=== PATIENT | female | born 1975 | race Caucasian/White ===

== ENCOUNTER 2016-09-15 23:19 | Inpatient (IN) | payer OTHER ==
[~2016-09-15] VITALS: Ht 172.7 cm; Wt 107.2 kg
[~2016-09-15 23:19] MED LIST: AMOX500C PO; ARIP15TA2 PO; ARIP20TA8 PO; CIPR500T94 PO; CLIN-44 PO; ERYT250T14 PO; FLUO20CA16 PO; GABA600T2 PO; HYDR-971 PO; HYDR15SO4 PO; IBUP-1007 PO; INSU100C SQ; INSU100V13 SQ; LUBI8CAP3 PO; METF-551 PO; ONDA4TAB7 PO; OXYC1TAB7 PO; TRAZ50TA15 PO
[2016-09-15] MEDS ORDERED: IV NORMAL SALINE 1000ML BAG 1,000 ML IV SCH (23:45)
[2016-09-15 23:54] LABS: BASO # 0.1 x10^3/uL (0.0-0.2); BASO % 1 % (0-3); EOS % 2 % (0-3); HEMATOCRIT 42.8 % (36.0-47.0); HEMOGLOBIN 14.1 g/dL (12.0-15.5); LYMPH # 2.5 x10^3/uL (1.0-4.8); LYMPH % 36 % (24-48); MEAN CORPUSCULAR HEMOGLOBIN 27 pg (25-35); MEAN CORPUSCULAR HGB CONC 33 g/dL (31-37); MEAN CORPUSCULAR VOLUME 83 fL (79-100); MONO % 7 % (0-9); NEUT % 54 % (31-73); PLATELET COUNT 164 x10^3/uL (140-400); RED BLOOD COUNT 5.19 x10^6/uL (3.50-5.40); RED CELL DISTRIBUTION WIDTH 14.8 % (11.5-14.5)
[2016-09-16] VITALS (7 sets, daily range): BP systolic 106–126; BP diastolic 61–76
[2016-09-16 00:12] LABS: CALCIUM 9.7 mg/dL (8.5-10.1); CREATININE 0.9 mg/dL (0.6-1.0); GFR 69.3; POTASSIUM 3.9 mmol/L (3.5-5.1)
--- NOTE | 2016-09-16 00:12 | PHYS DOC ---
Past Medical History Past Medical History: Anxiety, Asthma, Diabetes-Type II, Hypertension, [place], Other Additional Past Medical Histor: fibroid tumors, Past Surgical History: Cholecystectomy, Tubal ligation, Other Additional Past Surgical Histo: fibroid tumor removal, R CARPAL TUNNEL Alcohol Use: None Drug Use: None Adult General Chief Complaint Chief Complaint: HYPERGLYCEMIA HPI HPI 40-year-old female with known history of insulin-dependent diabetes presenting with ongoing nausea and vomiting for the last day and feeling ill and dehydrated. She states she vomited twice today and she states she's having polyuria and polydipsia. She denies any significant fever or chills. She denies any recent illnesses. She states she has had to be admitted multiple times in the past for uncontrolled blood sugar. She denies any abdominal pain. Patient is fully alert and oriented and able answer all my questions at this time and does not appear to be any severe distress. Review of Systems Review of Systems Constitutional: Denies fever or chills [] Eyes: Denies change in visual acuity, redness, or eye pain [] HENT: Denies nasal congestion or sore throat [] Respiratory: Denies cough or shortness of breath [] Cardiovascular: No additional information not addressed in HPI [] GI: Denies abdominal pain, nausea, vomiting, bloody stools or diarrhea [] : Denies dysuria or hematuria [] Musculoskeletal: Denies back pain or joint pain [] Integument: Denies rash or skin lesions [] Neurologic: Denies headache, focal weakness or sensory changes [] Endocrine: Denies polyuria or polydipsia [] Current Medications Current Medications Current Medications Medications (Trade) Dose Ordered Sig/Dominique Start Time Stop Time Status Last Admin Dose Admin Insulin Human Regular/Sodium Chloride (Novolin R Vial/ Iv Normal Saline 150ml) 151.5 ml @ 0 mls/hr CONT PRN 09/16/16 00:15 09/16/16 00:27 7.9 MLS/HR Sodium Chloride 1,000 ml @ 1,000 mls/hr Q1H 09/15/16 23:45 09/16/16 00:44 DC 09/15/16 23:45 1,000 MLS/HR Allergies Allergies Allergies Coded Allergies Type Severity Reaction Last Updated Verified shrimp Allergy Intermediate 06/14/16 Yes Physical Exam Physical Exam Constitutional: Well developed, well nourished, no acute distress, non-toxic appearance. [] HENT: Normocephalic, atraumatic, bilateral external ears normal, oropharynx moist, no oral exudates, nose normal. [] Eyes: PERRLA, EOMI, conjunctiva normal, no discharge. [] Neck: Normal range of motion, no tenderness, supple, no stridor. [] Cardiovascular:Heart rate regular rhythm, no murmur [] Lungs & Thorax: Bilateral breath sounds clear to auscultation [] Abdomen: Bowel sounds normal, soft, no tenderness, no masses, no pulsatile masses. [] Skin: Warm, dry, no erythema, no rash. [] Back: No tenderness, no CVA tenderness. [] Extremities: No tenderness, no cyanosis, no clubbing, ROM intact, no edema. [] Neurologic: Alert and oriented X 3, normal motor function, normal sensory function, no focal deficits noted. [] Psychologic: Affect normal, judgement normal, mood normal. [] Current Patient Data Vital Signs Vital Signs Date Time Temp Pulse Resp B/P Pulse Ox O2 Delivery O2 Flow Rate FiO2 09/16/16 00:10 86 20 129/77 96 Room Air 09/15/16 23:22 98.1 98.1 Lab Values Laboratory Tests Test 09/15/16 23:39 09/15/16 23:45 09/16/16 00:13 09/16/16 00:19 Glucose (Fingerstick) 526mg/dL (70-99) *H 454mg/dL (70-99) H White Blood Count 7.0x10^3/uL (4.0-11.0) Red Blood Count 5.19x10^6/uL (3.50-5.40) Hemoglobin 14.1g/dL (12.0-15.5) Hematocrit 42.8% (36.0-47.0) Mean Corpuscular Volume 83fL (79-100) Mean Corpuscular Hemoglobin 27pg (25-35) Mean Corpuscular Hemoglobin Concent 33g/dL (31-37) Red Cell Distribution Width 14.8% (11.5-14.5) H Platelet Count 164x10^3/uL (140-400) Neutrophils (%) (Auto) 54% (31-73) Lymphocytes (%) (Auto) 36% (24-48) Monocytes (%) (Auto) 7% (0-9) Eosinophils (%) (Auto) 2% (0-3) Basophils (%) (Auto) 1% (0-3) Neutrophils # (Auto) 3.8x10^3uL (1.8-7.7) Lymphocytes # (Auto) 2.5x10^3/uL (1.0-4.8) Monocytes # (Auto) 0.5x10^3/uL (0.0-1.1) Eosinophils # (Auto) 0.1x10^3/uL (0.0-0.7) Basophils # (Auto) 0.1x10^3/uL (0.0-0.2) Sodium Level 136mmol/L (136-145) Potassium Level 3.9mmol/L (3.5-5.1) Chloride Level 98mmol/L (98-107) Carbon Dioxide Level 25mmol/L (21-32) Anion Gap 13 (6-14) Blood Urea Nitrogen 8mg/dL (7-20) Creatinine 0.9mg/dL (0.6-1.0) Estimated GFR (Cockcroft-Gault) 69.3 Glucose Level 563mg/dL (70-99) *H Calcium Level 9.7mg/dL (8.5-10.1) Urine Collection Type Unknown Urine Color Red Urine Clarity Cloudy Urine pH 5.0 Urine Specific [place] >=1.030 Urine Protein Negativemg/dL (NEG-TRACE) Urine Glucose (UA) >=1000mg/dL (NEG) Urine Ketones (Stick) Negativemg/dL (NEG) Urine Blood Large (NEG) Urine Nitrite Negative (NEG) Urine Bilirubin Negative (NEG) Urine Urobilinogen Dipstick 0.2mg/dL (0.2 mg/dL) Urine Leukocyte Esterase Negative (NEG) Urine RBC Tntc/HPF (0-2) Urine WBC Occ/HPF (0-4) Urine Squamous Epithelial Cells Few/LPF Urine Bacteria 0/HPF (0-FEW) Urine Mucus Slight/LPF Laboratory Tests 09/15/16 23:45 Laboratory Tests 09/15/16 23:45 EKG EKG EKG as interpreted by dc shows a sinus rhythm with rate of 89 bpm. There are no acute ST findings. There are no obvious ischemic findings. Intervals are normal. EKG does not meet any STEMI criteria. Radiology/Procedures Radiology/Procedures [] Course & Med Decision Making Course & Med Decision Making Pertinent Labs and Imaging studies reviewed. (See chart for details) This 40-year-old female is likely having, occasions of uncontrolled diabetes. Fluids and insulin drip will be started. I will wait full laboratory workup including CBC, BMP, and a venous blood gas before admission and placement. Her blood work is unremarkable besides an elevated blood glucose in the 500s. Patient had several liters of IV fluid ordered as well as insulin drip for her uncontrolled blood glucose. It does not appear that she is in DKA at this time and will be suitable for a medical telemetry floor. Her need for admission was discussed with the hospitalist, Dr. Coto, who agreed to admit the patient for further evaluation and treatment. Dragon Disclaimer Dragon Disclaimer This electronic medical record was generated, in whole or in part, using a voice recognition dictation system. Departure Departure Impression: Primary Impression: Hyperglycemia Additional Impressions: Nausea & vomiting Dehydration Disposition: ADMITTED INPATIENT Admitting Physician: Leticia Coto Condition: STABLE Referrals: UNKNOWN PCP NAME (PCP) Problem Qualifiers SEBASTIÁN HENRY DO Sep 16, 2016 00:12
[2016-09-16] MEDS ORDERED: INSULIN REGULAR VIAL 150 UNIT in 0.9 % SODIUM CHLORIDE 150ML 150 ML IV PRN (00:15)
[2016-09-16] MEDS ORDERED: IV NORMAL SALINE 1000ML BAG 1,000 ML IV SCH (00:27)
[2016-09-16] MEDS ORDERED: ONDANSETRON PF 4 MG/2 ML VIAL. IV PRN (00:30)
[2016-09-16] MEDS ORDERED: ONDANSETRON PF 4 MG/2 ML VIAL. IV ONE (00:30)
[2016-09-16] MEDS ORDERED: KETOROLAC TROMETHAMINE 30 MG/ML SYRINGE. IV ONE (00:30)
[2016-09-16] MEDS ORDERED: IV NORMAL SALINE 1000ML BAG 1,000 ML IV ONE (00:30)
[2016-09-16 00:47] LABS: BILIRUBIN,URINE NEGATIVE (NEG); GLUCOSE,URINE >=1000 mg/dL (NEG); NITRITE,URINE NEGATIVE (NEG); PROTEIN,URINE NEGATIVE (NEG-TRACE); RBC,URINE TNTC /HPF (0-2); UROBILINOGEN,URINE 0.2 mg/dL (0.2 mg/dL)
[2016-09-16 00:48] LABS: BACTERIA,URINE 0 /HPF (0-FEW); SQUAMOUS EPITHELIAL CELL,UR FEW /LPF; WBC,URINE OCC /HPF (0-4)
[2016-09-16] MEDS ORDERED: MORPHINE SULFATE 2 MG/ML DISP.SYRIN. IV PRN (02:45)
[2016-09-16] MEDS ORDERED: MORPHINE SULFATE 4 MG/ML DISP.SYRIN. IV PRN ×2 (03:00)
[2016-09-16] MEDS: MORPHINE SULFATE 2 MG/ML DISP.SYRIN. IV PRN ×2 (03:31→06:31)
--- NOTE | 2016-09-16 04:57 | ACF ---
Admission Forms Criteria GENERAL ADMISSION CRITERIA (Place 'X' for any and all applicable criteria): Admission is indicated for ANY ONE of the following: [ ]I. Hemodynamic instability as indicated by ANY ONE of the following(1)(2) (3)(4)(5): [ ]a) Vital sign abnormality not readily corrected by appropriate treatment within 12 to 24 hours indicated by ANY ONE of the following: [ ]i) Hypotension [ ]ii) Symptomatic Tachycardia unresponsive to treatment (eg , analgesia, fluids, sedation as indicated) [ ]iii) Orthostatic vital sign changes unresponsive to treatment (eg, fluids) [ ]b) Vital sign abnormality that is severe indicated by ANY ONE of the following: [ ]i) Inadequate perfusion indicated by ANY ONE of the following: [ ]1) Lactic acidosis (greater than 2 mmol/L) [ ]2) New abnormal capillary refill (greater than 3 seconds) [ ]3) Other metabolic acidosis (arterial pH less than 7.35) not otherwise explained [ ]4) Reduced urine output [ ]5) Altered mental status [ ]6) Myocardial Ischemia [ ]v) Mean arterial pressure[A] less than 60 mm Hg [ ]vi) Mean arterial pressure[A] less than 70 mm Hg after 30 minutes of appropriate treatment (eg, fluid resuscitation) [ ]vii) IV inotropic or vasopressor medication required to maintain adequate blood pressure or perfusion [ ]viii) Sustained heart rate greater than 120 beats per minute in adult or child 6 years or older[B]] [ ]II. Hypertension requiring inpatient treatment as indicated by ANY ONE of the following(6)(7)(8): [ ]a) SBP greater than 220 mm Hg or DBP greater than 120 mm Hg despite treatment [ ]b) SBP greater than 140 mm Hg or DBP greater than 100 mm Hg with evidence of acute end organ damage as indicated by ANY ONE of the following: [ ]i) Encephalopathy [ ]ii) Acute renal failure as indicated by new onset of ANY ONE of the following(9)(10)(11)(12)(13): [ ]1) A 3-fold rise in serum creatinine from baseline [ ]2) Serum creatinine greater than 4 mg/dL ( 354 micromoles/L) with acute rise greater than 0.5 mg/dL (44.2 micromoles/L) [ ]3) Reduction of more than 75% in estimated glomerular filtration rate from baseline [ ]4) Estimated glomerular filtration rate less than 35 mL/min/1.73m2 (0.59 mL/sec/1.73m2) in child up to 18 years of age [ ]5) Cessation of urine output indicated by ALL of the following: [ ]A. Adequate volume status [ ]B. Inadequate urine output as indicated by ANY ONE of the following: [ ]a. Urine output less than 0.3 mL/kg/hr for 24 hours [ ]b. Anuria (urine output less than 0.1 mL/kg/hr) for 12 hours [ ]iii) Aortic dissection [ ]iv) Myocardial ischemia [ ]v) Left ventricular heart failure [ ]vi) Retinal hemorrhage [ ]vii) Other significant finding [ ]c) Hypertension in child requiring inpatient treatment as indicated by ALL of the following(14)(15)(16): [ ]i) Outpatient treatment not effective, not available, or not appropriate [ ]ii) SBP or DBP greater than 95th percentile for age [ ]iii) Evidence of acute end organ damage as indicated by ANY ONE of the following: [ ]1) Altered mental status [ ]2) Acute renal failure as indicated by new onset of ANY ONE of the following(9)(10)(11)(12)(13): [ ]A. A 3-fold rise in serum creatinine from baseline [ ]B. Serum creatinine greater than 4 mg/dL (354 micromoles/L) with acute rise greater than 0.5 mg/dL (44.2 micromoles/L) [ ]C. Reduction of more than 75% in estimated glomerular filtration rate from baseline [ ]D. Estimated glomerular filtration rate less than 35 mL/min/1.73m2 (0.59 mL/sec/1.73m2)in child up to 18 years of age [ ]E. Cessation of urine output indicated by ALL of the following: [ ]a. Adequate volume status [ ]b. Inadequate urine output as indicated by ANY ONE of the following: [ ]1) Urine output less than 0.3 mL/kg/hr for 24 hours [ ]2) Anuria (urine output less than 0.1 mL/kg/hr) for 12 hours [ ]3) Severe headache [ ]4) Visual disturbance [ ]5) Retinal hemorrhage [ ]6) Other significant finding [ ]III. Acute cardiac or peripheral ischemia as indicated by ANY ONE of the following: [ ]a) Acute coronary syndrome(17)(18) [ ]b) Acute peripheral ischemia (eg, pulseless, cool, mottled, or cyanotic extremity)(19) [ ]IV. Cardiac arrhythmias or findings of immediate concern indicated by ANY ONE of the following(20)(21): [ ]a) Heart rhythms that are inherently dangerous or unstable indicated by ANY ONE of the following(22)(23)(24): [ ]i) Resuscitated ventricular fibrillation or cardiac arrest [ ]ii) Ventricular escape rhythm [ ]iii) Sustained ventricular tachycardia (30 seconds or more of ventricular rhythm at greater than 100 beats per minute) [ ]iv) Nonsustained ventricular tachycardia and ANY ONE of the following: [ ]1) Suspected cardiac ischemia as cause or consequence of ventricular tachycardia [ ]2) In setting of acute myocarditis [ ]b) Unstable cardiac conduction defects indicated by ANY ONE of the following(24)(25)(26): [ ]i) Type II second-degree atrioventricular block [ ]ii) Third-degree atrioventricular block [ ]iii) New-onset left bundle branch block with suspected myocardial ischemia [ ]c) Any heart rhythm and ANY ONE of the following(22)(23)(27)(28)( 29): [ ] i) Continuous long-term ECG monitoring needed (eg, initiation of drug requiring monitoring for more than 24 hours) [ ] ii) Patient has automatic implanted cardioverter defibrillator that is repeatedly firing, malfunctioning, or in need of immediate adjustment of settings beyond the scope of ambulatory or observation care. [ ]d) Heart rhythms of concern due to ANY ONE of the following: [ ]i) Hypotension [ ]ii) Respiratory distress [ ]iii) Association with other significant symptoms (eg, bradycardia with syncope or ongoing dizziness, supraventricular tachycardia with chest pain) (27)(28) (30) [ ] V. Severe heart failure as indicated by ANY ONE of the following ( 31)(32): [ ]a) Respiratory distress [ ]b) Hypotension [ ]c) Anasarca (refractory to outpatient therapy) [ ]d) Cardiac arrhythmias of immediate concern [ ]e) Myocardial ischemia [ ]. Respiratory abnormalities, including ANY ONE of the following(33)(34) (35)(36): [ ]a) Respiratory rate greater than 30 breaths per minute unresponsive to treatment [A] [ ]b) New saturation of arterial oxygen less than 90% [ ]c) New partial pressure of carbon dioxide greater than 44 mm Hg ( 5.9 kPa) [ ]d) Supplemental oxygen or respiratory treatments needed that are new or not performable at other levels of care [ ]e) New-onset cyanosis [ ]f) Inability to protect airway [ ]g) Chronic lung disease with severe deterioration (not responsive to emergency and observation care treatment as appropriate) as indicated by ANY ONE of the following(34)(36 ): [ ]i) SaO2 5% below baseline in patient with chronic hypoxemia [ ]ii) New requirement for supplemental oxygen to keep SaO2 at baseline or acceptable level [ ]iii) Required supplemental oxygen performable only in acute inpatient setting [ ]iv) Severe airflow or ventilation abnormalities [ ]v) Previously mobile patient unable to walk between rooms [ ]vi Inability to eat or sleep due to dyspnea [ ]vii) Rapid rate of exacerbation onset [ ]viii) Altered mental status ]VII. Severe airflow or ventilation abnormalities (not responsive to emergency and observation care treatment as appropriate) as indicated by ANY ONE of the following(33)(34)(35)(37): [ ]a) PCO2 greater than 42 mm Hg (5.6 kPa) and pH less than 7.35 (new ) [ ]b) Documented PCO2 increased more than 5 mm Hg (0.7 kPa) from disease baseline [ ]c) Airflow measurements [B] less than 60% of previous best or predicted (eg, peak expiratory flow rate less than 300 L/minute) despite intensive emergent treatment [C] [ ]d) Required respiratory treatments that are performable only in acute inpatient setting [ ]VIII. Impending or actual respiratory arrest ( Also use Respiratory Failure GRG for severe respiratory disease and long-term mechanical ventilation patients) [ ]IX. Neurologic abnormalities, including ANY ONE of the following: [ ]a) New findings that suggest ANY ONE of the following: [ ]i) BILLING MACHINE OPERATOR infection(38) [ ]ii) Cerebral bleeding, ischemia, or vasospasm(39)(40) [ ]iii) Increased intracranial pressure, hydrocephalus, or cerebral edema(41)(42)(43) [ ]iv) Spinal cord injury(44) [ ]b) Uncontrolled seizures(45) [ ]c) New-onset coma (eg, Oscar coma scale score less than 9) or unexplained abnormal mental status (eg, Oscar coma scale score less than 14) [D](41)(46)(47) [ ]X. New-onset severe neurologic findings requiring inpatient care; examples include(42)(48)(49): [ ]a) Papilledema [ ]b) Cerebral edema [ ]c) Mass effect on CT scan [ ]XI. Suspected acute intra-abdominal process with peritoneal signs, abdominal mass, or similar findings (50)(51)(52) [X]XII. Severe physiologic disorder remaining after emergency or observation level care (as appropriate) as indicated by ANY ONE of the following (53): [ ]a) Significant dehydration [ ]b) Diabetic ketoacidosis [X]c) Hyperglycemic hyperosmolar state (eg, osmolality greater than 320 mOsm/kg (mmol/kg) [ ]d) Hypoglycemia [ ]e) Other (new) acid-base disorder with pH less than 7.35 or greater than 7.5(54) [ ]f) Thyroid storm (55) [ ]g) Myxedema coma (55) [ ]XIII. Abdominal abnormalities with ANY ONE of the following(56)(57): [ ]a) Absent bowel sounds with complete ileus [ ]b) Signs of intestinal obstruction or peritonitis [E] [ ]c) Nausea and vomiting that cannot be controlled with outpatient or observation care [ ]XIV. Acute renal failure as indicated by new onset of ANY ONE of the following(9)(10)(11)(12)(13): [ ]a) A 3-fold rise in serum creatinine from baseline [ ]b) Serum creatinine greater than 4 mg/dL (354 micromoles/L) with acute rise greater than 0.5 mg/dL (44.2 micromoles/L) [ ]c) Reduction of more than 75% in estimated glomerular filtration rate from baseline [ ]d) Estimated glomerular filtration rate less than 35 mL/min/ 1.73m2 (0.59 mL/sec/1.73m2) in child up to 18 years of age [ ]e) Cessation of urine output indicated by ALL of the following: [ ]i) Adequate volume status [ ]ii) Inadequate urine output as indicated by ANY ONE of the following: [ ]1) Urine output less than 0.3 mL/kg/hr for 24 hours [ ]2) Anuria (urine output less than 0.1 mL/kg/hr) for 12 hours [ ]XV. Significant uremic complications as indicated by ANY ONE of the following(58)(59)(60): [ ]a) Outpatient therapy is ineffective or not feasible for ANY ONE of the following: [ ]i) Severe heart failure [ ]ii) Severehypertension [ ]iii) Pleural effusion [ ]iv) Pericarditis or pericardial effusion [ ]b) Cardiac arrhythmias of immediate concern [ ]c) Intractable nausea or vomiting [ ]d) Recurrent seizures [ ]e) Encephalopathy [ ]f) Bleeding abnormalities (eg, platelet dysfunction) with active (eg, gastrointestinal) bleeding [ ]g) Dialysis indicated before long-term access or ambulatory arrangements can be made [ ]h) Significant metabolic or electrolyte abnormalities (eg, severe acidosis or hyperkalemia) [ ]XVI. High fever or other high-risk infection situation as indicated by ANY ONE of the following(61)(62)(63)(64): [ ]a) Outpatient and observation care antimicrobial treatment unavailable, not effective, or not appropriate [ ]b) Documented bacteremia [ ]c) Temperature greater than 40.5 degrees C (104.9 degrees F) ( oral) [ ]d) Temperature greater than 39.5 degrees C (103.1 degrees F) ( oral) or less than 36 degrees C (96.8 degrees F) (rectal) that does not respond to e treatment and observation care [ ] XVII. Temperature less than 95 degrees F (35 degrees C)(rectal)(65) [ ] XVIII. Severe nutritional abnormalities as indicated by ALL of the following (66)(67): [ ]a) Inability to tolerate or establish sufficient oral or other enteral nutrition in outpatient setting [ ]b) Parenteral nutrition regimen need that must be implemented on inpatient basis [ ] XIX. Severe electrolyte abnormalities indicated by ALL of the following(68) (69)(70): [ ]a) Electrolytes and associated findings are not as expected for patient baseline or acceptable treatment effects. [ ]b) Severe abnormalities indicated by ANY ONE of the following: [ ]i) Sodium less than 130 mEq/L (mmol/L) (new) [ ]ii)Sodium less than 135 mEq/L (mmol/L) with ANY ONE of the following: [ ]1) Uncorrectable (to near normal or chronic baseline) after trial of outpatient and emergency treatment [ ]2) Altered mental status [ ]3) Seizures [ ]4) Severe medical etiology requiring inpatient management (eg, heart failure, hypovolemia) [ ]iii) Sodium greater than 155 mEq/L (mmol/L) [ ]iv) Sodium greater than 150 mEq/L (mmol/L) with ANY ONE of the following: [ ]1) Uncorrectable (to near normal or chronic baseline) with outpatient and emergency treatment [ ]2) Altered mental status [ ]3) Seizures [ ]4) Severe medical etiology (eg, hypovolemia, diabetes insipidus) [ ]v) Potassium less than 2.5 mEq/L (mmol/L) despite outpatient and emergency treatment [ ]vi) Potassium less than 3 mEq/L (mmol/L) with ANY ONE of the following: [ ]1) Weakness [ ]2) Cardiac abnormality (eg, arrhythmia, conduction disturbance) [ ]3) Cardiac ischemia [ ]4) Ileus [ ]5) Ongoing medical cause requiring inpatient management (eg, acute renal wasting or SIADH) [ ]6) Other severe symptoms [ ]vii) Potassium greater than 6.5 mEq/L (mmol/L) [ ]viii) Potassium greater than 5 mEq/L (mmol/L) with ANY ONE of the following: [ ]1) Uncorrectable (to near normal or chronic baseline) with outpatient and emergency treatment [ ]2) Severe ECG findings [F] [ ]3) Acute worsening of renal failure (creatinine greater than 2.5 mg/dL (221 micromoles/L) or significant elevation for age and size) [ ]4) Severe weakness [ ]5) Severe medical etiology (eg, hemolysis, infection, drug overdose) [ ]ix) Calcium less than 7 mg/dL (1.75 mmol/L) despite outpatient and emergency treatment (72) [ ]x) Calcium less than 8 mg/dL (2 mmol/L) with significant symptoms or findings; examples include(72): [ ]1) Altered mental status [ ]2) Muscle spasms [ ]3) Seizures [ ]4) Breathing difficulty [ ]5) Cardiac abnormality (eg, arrhythmia or conduction disturbance) [ ]xi) Calcium greater than 14 mg/dL (3.5 mmol/L)(72) [ ]xii) Calcium greater than 12 mg/dL (3 mmol/L) with ANY ONE of the following(72): [ ]1) Uncorrectable (to near normal or chronic baseline) with outpatient and emergency treatment [ ]2) Significant dehydration or hypovolemia as indicated by ALL of the following(70)(73)(74): [ ]A. Not resolved with initial treatments [ ]B. Clinically significant dehydration as indicated by ANY ONE of the following: [ ]a. Vomiting refractory to outpatient treatment (ie, precluding oral rehydration) [ ]b. Inability to drink [ ]c. Hypernatremia or other electrolyte abnormality unable to be corrected with outpatient and emergency treatment [ ]d. Failure to remain hydrated with outpatient therapy [ ]e. Reduced urine output [ ]f. Hypotension [ ]g. Serious cause for dehydration requiring acute hospitalization (eg, bowel obstruction, increased intracranial pressure, infectious cause) [ ]h. Child with ANY ONE of the following(75): [ ]1) Severe abdominal tenderness [ ]2) Adequate care not available at home [ ]3) Severe dehydration ( greater than 9% loss of body weight) [ ]4) Significant symptoms or findings; examples include: [ ]A. Altered mental status [ ]B. Cardiac abnormality (eg, arrhythmia, conduction disturbance) [ ]C. Malignant etiology requiring inpatient treatment [ ]xiii) Phosphorus less than 1 mg/dL (0.32 mmol/L) [ ]xiv) Phosphorus less than 1.5 mg/dL (0.48 mmol/L) with ANY ONE of the following: [ ]1) Patient unresponsive to outpatient and emergency treatment [ ]2) Significant symptoms or findings; examples include: [ ]A. Weakness [ ]B. Altered mental status [ ]C. Breathing difficulty [ ]D. Seizures [ ]E. Rhabdomyolysis [ ]xv) Phosphorus greater than 10 mg/dL (3.2 mmol/L) [ ]xvi) Phosphorus greater than 4.5 mg/dL (1.45 mmol/L) (new) with ANY ONE of the following: [ ]1) Severe medical etiology (eg, crush injury, acute renal failure) [ ]2) Associated hypocalcemia with significant findings; examples include: [ ]A. Neurologic symptoms [ ]B. Altered mental status [ ]C. Muscle spasms [ ]D. Seizures [ ]E. Breathing difficulty [ ]F. Cardiac abnormality (eg, arrhythmia, conduction disturbance) [ ]xvii) Magnesium less than 1 mg/dL (0.41 mmol/L) [ ]xviii) Magnesium less than 1.5 mg/dL (0.62 mmol/L) with ANY ONE of the following: [ ]1) Patient unresponsive to outpatient and emergency treatment [ ]2) Associated hypocalcemia with significant findings; examples include: [ ]A. Altered mental status [ ]B. Muscle spasms [ ]C. Seizures [ ]D. Breathing difficulty [ ]E. Cardiac abnormality (eg, arrhythmia , conduction disturbance) [ ]3) Associated hypokalemia (potassium less than 3 mEq/L (mmol/L)) with risk of arrhythmia [ ]xix) Magnesium greater than 4 mEq/L (2 mmol/L) [ ]xx) Magnesium greater than 2.5 mEq/L (1.25 mmol/L) with significant symptoms or findings; examples include: [ ]1) Weakness [ ]2) Altered mental status [ ]3) Cardiac abnormality (eg, arrhythmia, conduction disturbance) [ ]4) Breathing difficulty [ ]5) Severe medical etiology (eg, renal failure, hypovolemia) [ ]xxi) Uric acid greater than 20 mg/dL (1190 micromoles/L)(76) [ ]xxii) Uric acid greater than 8 mg/dL (476 micromoles/L) with significant symptoms or findings of tumor lysis syndrome; examples include(76): [ ]1) Creatinine greater than 1.5 times upper limit of normal [ ]2) Cardiac abnormality (eg, arrhythmia, conduction disturbance) [ ]3) Seizure [ ]XX. Acute blood loss causing significant abnormality as indicated by ANY ONE of the following(77)(78): [ ]a) Hemoglobin less than 10 g/dL (100 g/L) (not baseline) [ ]b) Hematocrit less than 30% (0.30) (not baseline) [ ]c) Repeat hematocrit decreased more than 2% (0.02) [ ]d) Uncontrolled bleeding [ ]XXI. Severe anemia indicated by ANY ONE of the following(78)(79): [ ]a) Altered mental status [ ]b) Chest pain [ ]c) Exertional dyspnea [ ]d) Syncope [ ]e) Other findings suggesting inadequate perfusion [ ]f) Treatment with transfusion or volume replacement is ineffective at resolving ANY ONE of the following [G]: [ ]i) Tachycardia for age [ ]ii) Orthostatic vital sign changes as indicated by ANY ONE of the following(80): [ ]1) Fall in SBP of 20 mm Hg or more 1 to 3 minutes after patient sits or stands from recumbent position [ ]2) Fall in DBP of 10 mm Hg or more 1 to 3 minutes after patient sits or stands from recumbent position [ ]XXII. High-risk low platelet count as indicated by ANY ONE of the following( 81)(82): [ ]a) Severe or life-threatening bleeding (eg, intracranial, major gastrointestinal, or extensive mucosal bleeding), with any reduced platelet count [ ]b) Platelet count less than 20,000/mm3 (20 x109/L) with any active bleeding [ ]c) Platelet count less than 10,000/mm3 (10 x109/L) with minor purpura or petechiae [ ]d) Platelet count less than 5000/mm3 (5 x109/L) [ ]e) Low platelet count with hemolytic anemia [ ]XXIII. Disseminated intravascular coagulation(77)(83) [ ]XXIV. Severe adverse drug or systemic toxin reaction requiring inpatient treatment; examples include(84)(85): [ ]a) Serotonin syndrome(86) [ ]b) Neuroleptic malignant syndrome(86) [ ]c) Cholinergic syndrome with severe symptoms (eg, bronchorrhea, weakness, mental status changes, seizures) [ ]d) Sympathetic syndrome with severe symptoms (eg, seizures, mental status changes, cardiac dysrhythmias) [ ]e) Anticholinergic syndrome [ ]XXV. Severe pain requiring acute inpatient management as indicated by ALL of the following (87)(88)(89): [ ]a) Continuous or frequent (eg, every 2 to 4 hours) parenteral analgesics required [H] [ ]b) Rapid improvement expected from treatment or acute intervention (eg, surgery, anesthesia procedure) [ ]XXVI.Severe behavioral health issues judged unmanageable at a lower level of care (eg, residential) in a patient who is ANY ONE of the following(91) [ ]a) Acutely suicidal [ ]b) A danger to self (eg, self-mutilating or suicidal behavior) [ ]c) A danger to others (eg, assaultive or homicidal behavior) [ ]d) Incapacitated because of grave disability (eg, inability to provide for self at lower level of care) (92) [ ]XXVII. Inpatient monitoring needed; examples include(1)(3)(87)(93)(94)(95)(96 ): [ ]a) Vital signs, neurologic signs, or vascular checks more frequently than every 4 hours [ ]b) Cardiac or respiratory monitoring beyond the scope (eg, over 24 hours) of observation care [ ]c) Pulmonary artery catheter monitoring [ ]d) Suspected compartment syndrome(97) (98) [ ]e) Cerebral bleeding, hydrocephalus, or vasospasm monitoring [ ]f) Increased intracranial pressure or cerebral edema monitoring [ ]g) monitoring [ ]XXVIII. Treatment requiring inpatient care; examples include: [ ]a) IV fluid to replace significant ongoing losses (greater than 3 L/m2 per day)(53) [ ]b) High concentration oxygen (greater than 40%)(33)(99)(100) [ ]c) Frequent respiratory therapy (more frequently than every 4 hours) to maintain airflow rates greater than 60% of baseline(33)(99)(100) [ ]d) Epidural analgesia(87) [ ]e) IV anticoagulation, vasoactive, or antiarrhythmic medication(19 )(23) [ ]f) Acute thrombolytics (generally require 24 hours of observation )(101)(102) [ ]XXIX. Emergency procedures needed; examples include: [ ]a) Emergency inpatient surgery [ ]b) Temporary pacemaker placement(103) [ ]c) Chest tube placement with active evacuation (eg, suction, drainage)(104) [ ]d) Emergent cardioversion(105) [ ]e) Emergent cardiac or vascular procedures (eg, cardiac catheterization, angioplasty) (17)(18) [ ]f) Emergent dialysis access placement and institution(10)(106) [ ]g) Emergent pericardiocentesis(107) [ ]h) Emergent plasmapheresis or leukapheresis(83) [ ]i) Emergent tracheostomy The original [facility] content created by [facility] has been revised. The portions of the content which have been revised are identified through the use of italic text or in bold, and [facility] has neither reviewed nor approved the modified material. All other unmodified content is copyright [facility]. Please see references footnoted in the original [facility] edition 2016 Admission Criteria Met?: Yes NATE LAMBERT Sep 16, 2016 04:57
--- NOTE | 2016-09-16 06:49 | EKG ---
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
[2016-09-16] MEDS ORDERED: IV DEXTROSE 5 %-0.45 % NACL 1,000 ML IV ONE (10:15)
[2016-09-16] MEDS: IV NORMAL SALINE 1000ML BAG 1,000 ML IV SCH ×2 (10:15→23:50)
[2016-09-16] MEDS ORDERED: DEXTROSE 50% 25 GM / 50ML DISP.SYRIN. IV PRN ×2 (10:45)
[2016-09-16] MEDS: NICOTINE 14MG PATCH. TD SCH (11:49)
[2016-09-16] MEDS: OXYCODONE/APAP 5/325 TABLET. PO PRN ×3 (11:49→19:21)
[2016-09-16] MEDS: INSULIN ASPART 300 UNITS/3 ML INSULN.PEN SQ SCH ×5 (11:52→16:58)
[2016-09-16] MEDS ORDERED: HYDROCODONE/APAP 5/325MG TABLET. PO PRN (12:45)
--- NOTE | 2016-09-16 13:01 | HP ---
ADMIT DATE: 09/16/2016 CHIEF COMPLAINT: Hyperglycemia. HISTORY OF PRESENT ILLNESS: The patient is a pleasant 40-year-old female who has diabetes. She is somewhat noncompliant. She presented with hyperglycemia with sugars into the 563 range. Her anion gap was actually normal, but she has poor glycemic control. She has now been admitted. We are giving her insulin drip and fluids. PAST MEDICAL HISTORY: Noncompliance, diabetes, hypertension, hyperlipidemia, asthma, myocardial infarction, fibroid tumors, cholecystectomy, tubal ligation, right carpal tunnel surgery. ALLERGIES: SHRIMP. FAMILY HISTORY: Coronary artery disease and diabetes. SOCIAL HISTORY: She does not drink, smoke or take drugs. MEDICATIONS: Reviewed, please refer to the MRAD. REVIEW OF SYSTEMS: GENERAL: No history of weight change, weakness or fevers. SKIN: No bruising, hair changes or rashes. EYES: No blurred, double or loss of vision. NOSE AND THROAT: No history of nosebleeds, hoarseness or sore throat. HEART: No history of palpitations, chest pain or shortness of breath on exertion. LUNGS: Denies cough, hemoptysis, wheezing or shortness of breath. GASTROINTESTINAL: Denies changes in appetite, nausea, vomiting, diarrhea or constipation. GENITOURINARY: No history of frequency, urgency, hesitancy or nocturia. NEUROLOGIC: Denies history of numbness, tingling, tremor or weakness. PSYCHIATRIC: No history of panic, anxiety or depression. ENDOCRINE: No history of heat or cold intolerance, polyuria or polydipsia. EXTREMITIES: Denies muscle weakness, joint pain, pain on walking or stiffness. METABOLIC: She complains of her glucose being out of control. PHYSICAL EXAMINATION: VITAL SIGNS: Temperature afebrile, pulse 68, respirations 18, blood pressure 111/65. GENERAL: She is alert, cooperative. HEART: Normal S1 and S2. LUNGS: Clear. ABDOMEN: Soft, positive bowel sounds. EXTREMITIES: No edema. SKIN: No rashes. PSYCHIATRIC: She is anxious. VASCULAR: Good capillary refill. ENDOCRINE: No thyromegaly. LYMPHATICS: No cervical nodes. HEMATOPOIETIC: No bruising. LABORATORY DATA: Hematology is normal. Glucose this morning has decreased down to 216. Her anion gap is still clear at 13. ASSESSMENT AND PLAN: Resolving nonketotic hyperglycemia with clinical dehydration. The patient has been admitted. We are giving her insulin drip and fluids. I have actually told the nurse to go ahead and change this over to scheduled insulin, 10 units of NovoLog with meals and 20 units of Lantus at nighttime. We will recheck her sugars through the day and tomorrow, and if she is better, we will let her go tomorrow afternoon with better instructions on how to take her diabetic medications. ASHLYN HERRERA DO DR: GOLDIE/catherine JOB#: [id number] / [id number]
[2016-09-16] MEDS ORDERED: AMOXICILLIN 250 MG CAPSULE PO SCH (14:00)
[2016-09-16] MEDS: GABAPENTIN 300 MG CAPSULE. PO SCH ×2 (15:21→20:56)
[2016-09-16] MEDS ORDERED: ERYTHROMYCIN BASE 250 MG TABLET PO SCH (16:30)
[2016-09-16] MEDS: LUBIPROSTONE 8 MCG CAPSULE PO SCH (16:51)
[2016-09-16] MEDS: ONDANSETRON ODT 4 MG TAB.RAPDIS PO PRN (19:21)
[2016-09-16] MEDS: ALPRAZOLAM 0.5 MG TABLET PO PRN (19:58)
[2016-09-16] MEDS: FLUOXETINE HCL 20 MG CAPSULE PO SCH (20:56)
[2016-09-16] MEDS: traZODone 50 MG TABLET. PO SCH (20:56)
[2016-09-16] MEDS ORDERED: INSULIN DETEMIR 300 UNITS/3 ML INSULN.PEN. SQ SCH (21:00)
[2016-09-16] MEDS ORDERED: CIPROFLOXACIN HCL 250 MG TABLET PO SCH (21:00)
[2016-09-16] MEDS: INSULIN DETEMIR 300 UNITS/3 ML INSULN.PEN. SQ SCH (21:00)
[2016-09-17 03:00] VITALS: BP 122/75
[2016-09-17 06:51] LABS: BASO % 1 % (0-3); EOS % 2 % (0-3); HEMOGLOBIN 12.5 g/dL (12.0-15.5); LYMPH # 1.7 x10^3/uL (1.0-4.8); LYMPH % 36 % (24-48); MEAN CORPUSCULAR HEMOGLOBIN 27 pg (25-35); MEAN CORPUSCULAR HGB CONC 32 g/dL (31-37); MEAN CORPUSCULAR VOLUME 84 fL (79-100); MONO % 6 % (0-9); NEUT % 55 % (31-73); PLATELET COUNT 142 x10^3/uL (140-400); RED BLOOD COUNT 4.65 x10^6/uL (3.50-5.40); RED CELL DISTRIBUTION WIDTH 14.8 % (11.5-14.5); WHITE BLOOD COUNT 4.8 x10^3/uL (4.0-11.0)
[2016-09-17 07:00] VITALS: BP 116/70
[2016-09-17 07:05] LABS: CALCIUM 8.6 mg/dL (8.5-10.1); CREATININE 0.7 mg/dL (0.6-1.0); GFR 92.7; POTASSIUM 3.9 mmol/L (3.5-5.1)
[2016-09-17] MEDS: LUBIPROSTONE 8 MCG CAPSULE PO SCH ×2 (08:01→16:41)
[2016-09-17] MEDS: OXYCODONE/APAP 5/325 TABLET. PO PRN ×2 (08:01→21:41)
[2016-09-17] MEDS: FLUOXETINE HCL 20 MG CAPSULE PO SCH ×2 (08:01→21:33)
[2016-09-17] MEDS: ARIPIPRAZOLE 5 MG TABLET. PO SCH (08:01)
[2016-09-17] MEDS: NICOTINE 14MG PATCH. TD SCH (08:02)
[2016-09-17] MEDS: GABAPENTIN 300 MG CAPSULE. PO SCH ×3 (08:02→21:33)
[2016-09-17] MEDS: INSULIN ASPART 300 UNITS/3 ML INSULN.PEN SQ SCH ×8 (08:08→16:46)
[2016-09-17] MEDS: INSULIN DETEMIR 300 UNITS/3 ML INSULN.PEN. SQ SCH (08:09)
--- NOTE | 2016-09-17 08:14 | PDOC ---
PROGRESS NOTES Chief Complaint Chief Complaint Hyperglycemia History of Present Illness History of Present Illness No acute events overnight. This morning, patient is complaining of a clammy feeling along with nausea and a headache. Her sugars remain high. Amaryl will be added to help with sensitization. Vitals Vitals Vital Signs Date Time Temp Pulse Resp B/P Pulse Ox O2 Delivery O2 Flow Rate FiO2 09/17/16 08:01 Room Air 09/17/16 07:00 97.7 73 18 116/70 97 97.7 Physical Exam General: Alert, Cooperative, No acute distress Heart: Regular rate, Normal S1, Normal S2 Lungs: Clear, Other (no wheezing) Abdomen: Soft, No tenderness Extremities: No cyanosis, No edema Skin: No rashes, No significant lesion Labs LABS Laboratory Tests Test 09/16/16 08:24 09/16/16 09:16 09/16/16 10:06 09/16/16 11:03 Glucose (Fingerstick) 213mg/dL (70-99) 261mg/dL (70-99) 260mg/dL (70-99) 225mg/dL (70-99) Test 09/16/16 14:34 09/16/16 16:21 09/16/16 19:19 09/16/16 20:36 Glucose (Fingerstick) 314mg/dL (70-99) 294mg/dL (70-99) 309mg/dL (70-99) 338mg/dL (70-99) Test 09/17/16 06:15 09/17/16 06:18 09/17/16 07:16 Sodium Level 137mmol/L (136-145) Potassium Level 3.9mmol/L (3.5-5.1) Chloride Level 105mmol/L (98-107) Carbon Dioxide Level 24mmol/L (21-32) Anion Gap 8 (6-14) Blood Urea Nitrogen 8mg/dL (7-20) Creatinine 0.7mg/dL (0.6-1.0) Estimated GFR (Cockcroft-Gault) 92.7 Glucose Level 361mg/dL (70-99) Calcium Level 8.6mg/dL (8.5-10.1) White Blood Count 4.8x10^3/uL (4.0-11.0) Red Blood Count 4.65x10^6/uL (3.50-5.40) Hemoglobin 12.5g/dL (12.0-15.5) Hematocrit 39.0% (36.0-47.0) Mean Corpuscular Volume 84fL (79-100) Mean Corpuscular Hemoglobin 27pg (25-35) Mean Corpuscular Hemoglobin Concent 32g/dL (31-37) Red Cell Distribution Width 14.8% (11.5-14.5) Platelet Count 142x10^3/uL (140-400) Neutrophils (%) (Auto) 55% (31-73) Lymphocytes (%) (Auto) 36% (24-48) Monocytes (%) (Auto) 6% (0-9) Eosinophils (%) (Auto) 2% (0-3) Basophils (%) (Auto) 1% (0-3) Neutrophils # (Auto) 2.7x10^3uL (1.8-7.7) Lymphocytes # (Auto) 1.7x10^3/uL (1.0-4.8) Monocytes # (Auto) 0.3x10^3/uL (0.0-1.1) Eosinophils # (Auto) 0.1x10^3/uL (0.0-0.7) Basophils # (Auto) 0.0x10^3/uL (0.0-0.2) Glucose (Fingerstick) 352mg/dL (70-99) Review of Systems Review of Systems Denies chest pain and shortness of breath. Reports headache and nausea. Assessment and Plan Assessmemt and Plan Problems Medical Problems: (1) Dehydration Status: Acute (2) Hyperglycemia Status: Acute (3) Nausea & vomiting Status: Acute ASSESSMENT: Resolving Non-Ketotic Hyperglycemia Clinical Dehydration HTN HLD Asthma Psychiatric illness History of MS PLAN: Amaryl is added for sensitization Continue insulin therapy Closely monitor blood glucose. Continue home psychiatric medications Continue IVF Monitor daily labs PT/OT eval and treat Problems: Comment Review of Relevant I have reviewed the following items karthik (where applicable) has been applied. Labs Laboratory Tests Test 09/15/16 23:39 09/15/16 23:45 09/16/16 00:13 09/16/16 00:19 Glucose (Fingerstick) 526mg/dL (70-99) 454mg/dL (70-99) White Blood Count 7.0x10^3/uL (4.0-11.0) Red Blood Count 5.19x10^6/uL (3.50-5.40) Hemoglobin 14.1g/dL (12.0-15.5) Hematocrit 42.8% (36.0-47.0) Mean Corpuscular Volume 83fL (79-100) Mean Corpuscular Hemoglobin 27pg (25-35) Mean Corpuscular Hemoglobin Concent 33g/dL (31-37) Red Cell Distribution Width 14.8% (11.5-14.5) Platelet Count 164x10^3/uL (140-400) Neutrophils (%) (Auto) 54% (31-73) Lymphocytes (%) (Auto) 36% (24-48) Monocytes (%) (Auto) 7% (0-9) Eosinophils (%) (Auto) 2% (0-3) Basophils (%) (Auto) 1% (0-3) Neutrophils # (Auto) 3.8x10^3uL (1.8-7.7) Lymphocytes # (Auto) 2.5x10^3/uL (1.0-4.8) Monocytes # (Auto) 0.5x10^3/uL (0.0-1.1) Eosinophils # (Auto) 0.1x10^3/uL (0.0-0.7) Basophils # (Auto) 0.1x10^3/uL (0.0-0.2) Sodium Level 136mmol/L (136-145) Potassium Level 3.9mmol/L (3.5-5.1) Chloride Level 98mmol/L (98-107) Carbon Dioxide Level 25mmol/L (21-32) Anion Gap 13 (6-14) Blood Urea Nitrogen 8mg/dL (7-20) Creatinine 0.9mg/dL (0.6-1.0) Estimated GFR (Cockcroft-Gault) 69.3 Glucose Level 563mg/dL (70-99) Calcium Level 9.7mg/dL (8.5-10.1) Urine Collection Type Unknown Urine Color Red Urine Clarity Cloudy Urine pH 5.0 Urine Specific [place] >=1.030 Urine Protein Negativemg/dL (NEG-TRACE) Urine Glucose (UA) >=1000mg/dL (NEG) Urine Ketones (Stick) Negativemg/dL (NEG) Urine Blood Large (NEG) Urine Nitrite Negative (NEG) Urine Bilirubin Negative (NEG) Urine Urobilinogen Dipstick 0.2mg/dL (0.2 mg/dL) Urine Leukocyte Esterase Negative (NEG) Urine RBC Tntc/HPF (0-2) Urine WBC Occ/HPF (0-4) Urine Squamous Epithelial Cells Few/LPF Urine Bacteria 0/HPF (0-FEW) Urine Mucus Slight/LPF Test 09/16/16 01:15 09/16/16 02:26 09/16/16 03:45 09/16/16 04:57 Glucose (Fingerstick) 459mg/dL (70-99) 345mg/dL (70-99) 269mg/dL (70-99) 248mg/dL (70-99) Test 09/16/16 06:12 09/16/16 07:13 09/16/16 08:24 09/16/16 09:16 Glucose (Fingerstick) 288mg/dL (70-99) 216mg/dL (70-99) 213mg/dL (70-99) 261mg/dL (70-99) Test 09/16/16 10:06 09/16/16 11:03 09/16/16 14:34 09/16/16 16:21 Glucose (Fingerstick) 260mg/dL (70-99) 225mg/dL (70-99) 314mg/dL (70-99) 294mg/dL (70-99) Test 09/16/16 19:19 09/16/16 20:36 09/17/16 06:15 09/17/16 06:18 Glucose (Fingerstick) 309mg/dL (70-99) 338mg/dL (70-99) Sodium Level 137mmol/L (136-145) Potassium Level 3.9mmol/L (3.5-5.1) Chloride Level 105mmol/L (98-107) Carbon Dioxide Level 24mmol/L (21-32) Anion Gap 8 (6-14) Blood Urea Nitrogen 8mg/dL (7-20) Creatinine 0.7mg/dL (0.6-1.0) Estimated GFR (Cockcroft-Gault) 92.7 Glucose Level 361mg/dL (70-99) Calcium Level 8.6mg/dL (8.5-10.1) White Blood Count 4.8x10^3/uL (4.0-11.0) Red Blood Count 4.65x10^6/uL (3.50-5.40) Hemoglobin 12.5g/dL (12.0-15.5) Hematocrit 39.0% (36.0-47.0) Mean Corpuscular Volume 84fL (79-100) Mean Corpuscular Hemoglobin 27pg (25-35) Mean Corpuscular Hemoglobin Concent 32g/dL (31-37) Red Cell Distribution Width 14.8% (11.5-14.5) Platelet Count 142x10^3/uL (140-400) Neutrophils (%) (Auto) 55% (31-73) Lymphocytes (%) (Auto) 36% (24-48) Monocytes (%) (Auto) 6% (0-9) Eosinophils (%) (Auto) 2% (0-3) Basophils (%) (Auto) 1% (0-3) Neutrophils # (Auto) 2.7x10^3uL (1.8-7.7) Lymphocytes # (Auto) 1.7x10^3/uL (1.0-4.8) Monocytes # (Auto) 0.3x10^3/uL (0.0-1.1) Eosinophils # (Auto) 0.1x10^3/uL (0.0-0.7) Basophils # (Auto) 0.0x10^3/uL (0.0-0.2) Test 09/17/16 07:16 Glucose (Fingerstick) 352mg/dL (70-99) Laboratory Tests Test 09/16/16 08:24 09/16/16 09:16 09/16/16 10:06 09/16/16 11:03 Glucose (Fingerstick) 213mg/dL (70-99) 261mg/dL (70-99) 260mg/dL (70-99) 225mg/dL (70-99) Test 09/16/16 14:34 09/16/16 16:21 09/16/16 19:19 09/16/16 20:36 Glucose (Fingerstick) 314mg/dL (70-99) 294mg/dL (70-99) 309mg/dL (70-99) 338mg/dL (70-99) Test 09/17/16 06:15 09/17/16 06:18 09/17/16 07:16 Sodium Level 137mmol/L (136-145) Potassium Level 3.9mmol/L (3.5-5.1) Chloride Level 105mmol/L (98-107) Carbon Dioxide Level 24mmol/L (21-32) Anion Gap 8 (6-14) Blood Urea Nitrogen 8mg/dL (7-20) Creatinine 0.7mg/dL (0.6-1.0) Estimated GFR (Cockcroft-Gault) 92.7 Glucose Level 361mg/dL (70-99) Calcium Level 8.6mg/dL (8.5-10.1) White Blood Count 4.8x10^3/uL (4.0-11.0) Red Blood Count 4.65x10^6/uL (3.50-5.40) Hemoglobin 12.5g/dL (12.0-15.5) Hematocrit 39.0% (36.0-47.0) Mean Corpuscular Volume 84fL (79-100) Mean Corpuscular Hemoglobin 27pg (25-35) Mean Corpuscular Hemoglobin Concent 32g/dL (31-37) Red Cell Distribution Width 14.8% (11.5-14.5) Platelet Count 142x10^3/uL (140-400) Neutrophils (%) (Auto) 55% (31-73) Lymphocytes (%) (Auto) 36% (24-48) Monocytes (%) (Auto) 6% (0-9) Eosinophils (%) (Auto) 2% (0-3) Basophils (%) (Auto) 1% (0-3) Neutrophils # (Auto) 2.7x10^3uL (1.8-7.7) Lymphocytes # (Auto) 1.7x10^3/uL (1.0-4.8) Monocytes # (Auto) 0.3x10^3/uL (0.0-1.1) Eosinophils # (Auto) 0.1x10^3/uL (0.0-0.7) Basophils # (Auto) 0.0x10^3/uL (0.0-0.2) Glucose (Fingerstick) 352mg/dL (70-99) Medications Current Medications Sodium Chloride (Iv Sodium Chloride 0.9% 1000ml Bag) 1,000 ml @ 1,000 mls/hr Q1H IV Last administered on 09/15/16 23:45; Start 09/15/16 at 23:45; Stop at 00:44; Status DC Ondansetron HCl 4 mg 4 mg 1X ONCE IV Last administered on 09/16/16 00:26; Start 09/16/16 at 00:30; Stop 09/16/16 at 00:31; Status DC Insulin Human Regular/Sodium Chloride (Novolin R Vial/ Iv Normal Saline 150ml) 151.5 ml @ 0 mls/hr CONT PRN IV SEE I/O RECORD Last administered on 09/16/16 00:27; Start 09/16/16 at 00:15; Stop 09/16/16 at 10:33; Status DC Ketorolac Tromethamine 30 mg 30 mg 1X ONCE IV Last administered on 09/16/16 00:26; Start 09/16/16 at 00:30; Stop 09/16/16 at 00:31; Status DC Sodium Chloride (Iv Sodium Chloride 0.9% 1000ml Bag) 1,000 ml @ 1,000 mls/hr 1X ONCE IV Last administered on 09/16/16 00:57; Start 09/16/16 at 00:30; Stop 09/16/16 at 01:29; Status DC Ondansetron HCl 4 mg 4 mg PRN Q8HRS PRN IV NAUSEA/VOMITING; Start 09/16/16 at 00:30; Stop 09/17/16 at 00:29; Status DC Sodium Chloride (Iv Sodium Chloride 0.9% 1000ml Bag) 1,000 ml @ 150 mls/hr Q6H40M IV Last administered on 09/16/16 02:18; Start 09/16/16 at 00:27; Stop 09/16/16 at 10:42; Status DC Morphine Sulfate 2 mg PRN Q4HRS PRN IV MODERATE PAIN Last administered on 06:31; Start 09/16/16 at 02:45 Morphine Sulfate 2 mg PRN Q4HRS PRN IV PAIN; Start 09/16/16 at 02:45; Status UNV Morphine Sulfate 4 mg PRN Q4HRS PRN IV SEVERE PAIN Last administered on 08:55; Start 09/16/16 at 03:00 Morphine Sulfate 4 mg 4 mg PRN Q4HRS PRN IV PAIN; Start 09/16/16 at 03:00; Status UNV Dextrose/Sodium Chloride 1,000 ml @ 150 mls/hr 1X ONCE IV Last administered on 09/16/16 08:00; Start 09/16/16 at 10:15; Stop 09/16/16 at 10:33; Status DC Sodium Chloride (Iv Sodium Chloride 0.9% 1000ml Bag) 1,000 ml @ 75 mls/hr [id number] IV Last administered on 09/16/16 10:15; Start 09/16/16 at 10:30 Nicotine (Nicoderm Cq 14mg) 1 patch DAILY TD Last administered on 09/17/16 08: 02; Start 09/16/16 at 11:00 Insulin Detemir (Levemir) 20 units QHS SQ Last administered on 09/16/16 21:16 ; Start 09/16/16 at 21:00 Insulin Aspart (Novolog) 10 units TIDAC SQ Last administered on 09/17/16 08:09 ; Start 09/16/16 at 11:30 Dextrose 12.5 gm PRN Q15MIN PRN IV SEE COMMENTS; Start 09/16/16 at 10:45 Insulin Aspart (Novolog) 0-7 UNITS TIDWMEALS SQ Last administered on 09/17/16 08:08; Start 09/16/16 at 12:00 Dextrose 12.5 gm PRN Q15MIN PRN IV SEE COMMENTS; Start 09/16/16 at 10:45; Stop 09/16/16 at 10:45; Status DC Oxycodone/ Acetaminophen (Percocet 5/325) 1 tab PRN Q4HRS PRN PO PAIN Last administered on 09/17/16 08:01; Start 09/16/16 at 11:45 Erythromycin (E-Mycin) 250 mg QIDACHS PO ; Start 09/16/16 at 16:30; Stop at 16:30; Status DC Fluoxetine HCl (Prozac) 20 mg BID PO Last administered on 09/17/16 08:01; Start 09/16/16 at 21:00 Acetaminophen/ Hydrocodone Bitart (Lortab 5/325) 1 tab PRN Q6HRS PRN PO PAIN; Start 09/16/16 at 12:45 Lubiprostone (Amitiza) 8 mcg BIDWMEALS PO Last administered on 09/17/16 08:01 ; Start 09/16/16 at 17:00 Trazodone HCl (Desyrel) 50 mg QHS PO Last administered on 09/16/16 20:56; Start 09/16/16 at 21:00 Amoxicillin (Amoxil) 500 mg [id number] PO ; Start 09/16/16 at 14:00; Stop 09/16/16 at 14:47; Status DC Aripiprazole (Abilify) 15 mg DAILY PO Last administered on 09/17/16 08:01; Start 09/17/16 at 09:00 Ciprofloxacin (Cipro) 500 mg BID PO ; Start 09/16/16 at 21:00; Stop 09/16/16 at 21:00; Status DC Gabapentin (Neurontin) 600 mg TID PO Last administered on 09/17/16 08:02; Start 09/16/16 at 14:00 Insulin Detemir (Levemir) 50 units BID SQ Last administered on 09/17/16 08:09 ; Start 09/16/16 at 21:00 Insulin Aspart (Novolog) 50 units TIDBFRMEAL SQ Last administered on 09/17/16 08:08; Start 09/16/16 at 16:30 Ondansetron HCl (Zofran Odt) 4 mg PRN Q8HRS PRN PO NAUSEA Last administered on 09/16/16 19:21; Start 09/16/16 at 13:45 Alprazolam (Xanax) 0.5 mg PRN Q8HRS PRN PO ANXIETY / AGITATION Last administered on 09/16/16 19:58; Start 09/16/16 at 19:45 Active Scripts Active Zofran (Ondansetron Hcl) 4 Mg Tablet 1 Tab PO Q8HRS PRN Amoxicillin 500 Mg Capsule 1 Cap PO TID [place] 5-325 Tablet (Acetaminophen/Hydrocodone Bitart) 1 Each Tablet 1 Tab PO PRN Q6HRS PRN Oxycodone-Acetaminophen 5-325 (Oxycodone Hcl/Acetaminophen) 1 Each Tablet 1 Tab PO PRN Q4HRS PRN Amitiza (Lubiprostone) 8 Mcg Capsule 8 Mcg PO BIDWMEALS Erythromycin (Erythromycin Base) 250 Mg Tablet 250 Mg PO QIDACHS Cipro (Ciprofloxacin Hcl) 500 Mg Tablet 500 Mg PO BID Reported Abilify (Aripiprazole) 15 Mg Tablet 15 Mg PO DAILY Prozac (Fluoxetine Hcl) 20 Mg Capsule 1 Cap PO BID Trazodone Hcl 50 Mg Tablet 1 Tab PO QHS Metformin HCl ER (Metformin HCl) 1,000 Mg [id number] 1,000 Mg PO DAILY Gabapentin 600 Mg Tablet 600 Mg PO TID Humalog (Insulin Lispro) 100 Unit/1 Ml Cartridge 50 Unit SQ TIDBFRMEAL Levemir (Insulin Detemir) 100 Unit/1 Ml Vial 50 Unit SQ BID Vitals/I & O Vital Sign - Last 24 Hours 09/16/16 09/16/16 09/16/16 09/16/16 08:55 09:25 10:50 11:49 Temp 98.3 98.3 Pulse 72 Resp 16 B/P 126/74 Pulse Ox 93 O2 Delivery Room Air Room Air Room Air Room Air 09/16/16 09/16/16 09/16/16 09/16/16 12:49 15:00 15:22 19:00 Temp 97.8 98.5 97.8 98.5 Pulse 75 75 Resp 16 20 B/P 115/71 111/62 Pulse Ox 94 98 O2 Delivery Room Air Room Air Room Air 09/16/16 09/16/16 09/17/16 09/17/16 19:21 23:00 03:00 07:00 Temp 97.5 97.8 97.7 97.5 97.8 97.7 Pulse 73 76 73 Resp 18 B/P 106/61 122/75 116/70 Pulse Ox 96 96 97 O2 Delivery Room Air Room Air 09/17/16 08:01 O2 Delivery Room Air Intake and Output 09/16/16 09/16/16 09/17/16 15:00 23:00 07:00 Intake Total 938 ml Output Total 300 ml 400 ml 600 ml Balance -300 ml 538 ml -600 ml ASHLYN HERRERA III DO Sep 17, 2016 08:14
[2016-09-17 10:41] VITALS: BP 111/46
[2016-09-17] MEDS: ONDANSETRON ODT 4 MG TAB.RAPDIS PO PRN (11:16)
[2016-09-17] MEDS: GLIMEPIRIDE 2 MG TABLET PO SCH (11:36)
[2016-09-17] MEDS: IV NORMAL SALINE 1000ML BAG 1,000 ML IV SCH ×2 (11:43→12:54)
[2016-09-17] MEDS: ALPRAZOLAM 0.5 MG TABLET PO PRN ×2 (11:44→21:41)
[2016-09-17 14:00] VITALS: BP 123/81
[2016-09-17 19:00] VITALS: BP 136/82
[2016-09-17] MEDS ORDERED: INSULIN DETEMIR 300 UNITS/3 ML INSULN.PEN. SQ SCH (21:00)
[2016-09-17] MEDS: traZODone 50 MG TABLET. PO SCH (21:34)
[2016-09-17 23:00] VITALS: BP 137/86
[2016-09-18] MEDS: IV NORMAL SALINE 1000ML BAG 1,000 ML IV SCH (02:55)
[2016-09-18 03:00] VITALS: BP 131/88
[2016-09-18 07:30] VITALS: BP 109/62
[2016-09-18] MEDS: GABAPENTIN 300 MG CAPSULE. PO SCH (08:56)
[2016-09-18] MEDS: FLUOXETINE HCL 20 MG CAPSULE PO SCH (08:56)
[2016-09-18] MEDS: ARIPIPRAZOLE 5 MG TABLET. PO SCH (08:56)
[2016-09-18] MEDS: GLIMEPIRIDE 2 MG TABLET PO SCH (08:56)
[2016-09-18] MEDS: NICOTINE 14MG PATCH. TD SCH (08:56)
[2016-09-18] MEDS: LUBIPROSTONE 8 MCG CAPSULE PO SCH (08:56)
[2016-09-18] MEDS ORDERED: INSULIN DETEMIR 300 UNITS/3 ML INSULN.PEN. SQ SCH (09:00)
[2016-09-18] MEDS: INSULIN ASPART 300 UNITS/3 ML INSULN.PEN SQ SCH ×4 (09:06→12:33)
[2016-09-18] MEDS: OXYCODONE/APAP 5/325 TABLET. PO PRN (10:30)
[2016-09-18] MEDS: ALPRAZOLAM 0.5 MG TABLET PO PRN (10:30)
--- NOTE | 2016-09-18 10:49 | PDOC ---
PROGRESS NOTES Chief Complaint Chief Complaint Resolving Non-Ketotic Hyperglycemia Clinical Dehydration, resolving HTN HLD Asthma Psychiatric illness History of DC History of Present Illness History of Present Illness Patient feeling relatively well this AM with no acute events overnight. No new complaints. Her sugars have improved with the addition of Amaryl. Pt feels ready for discharge. Vitals Vitals Vital Signs Date Time Temp Pulse Resp B/P Pulse Ox O2 Delivery O2 Flow Rate FiO2 09/18/16 07:30 97.8 75 18 109/62 95 97.8 09/17/16 22:45 Room Air Physical Exam General: Alert, Cooperative, No acute distress Heart: Regular rate, Normal S1, Normal S2 Lungs: Clear, Other (no wheezing) Abdomen: Soft, No tenderness Extremities: No cyanosis, No edema Skin: No rashes, No significant lesion Labs LABS Laboratory Tests Test 09/17/16 11:10 09/17/16 16:17 09/17/16 21:11 09/18/16 07:31 Glucose (Fingerstick) 350mg/dL (70-99) 201mg/dL (70-99) 256mg/dL (70-99) 244mg/dL (70-99) Review of Systems Review of Systems Denies fever, chills. Denies chest pain and shortness of breath. Improvement in nausea Assessment and Plan Assessmemt and Plan Problems Medical Problems: (1) Dehydration Status: Acute (2) Hyperglycemia Status: Acute (3) Nausea & vomiting Status: Acute ASSESSMENT: Resolving Non-Ketotic Hyperglycemia Clinical Dehydration HTN HLD Asthma Psychiatric illness History of DC PLAN: Probable discharge today, blood sugars improving Amaryl, added for sensitization, has helped bring down blood glucose into the 240s. Home with Amaryl 4 mg qd Continue insulin therapy Closely monitor blood glucose. Continue home psychiatric medications Problems: Comment Review of Relevant I have reviewed the following items karthik (where applicable) has been applied. Labs Laboratory Tests Test 09/16/16 11:03 09/16/16 14:34 09/16/16 16:21 09/16/16 19:19 Glucose (Fingerstick) 225mg/dL (70-99) 314mg/dL (70-99) 294mg/dL (70-99) 309mg/dL (70-99) Test 09/16/16 20:36 09/17/16 06:15 09/17/16 06:18 09/17/16 07:16 Glucose (Fingerstick) 338mg/dL (70-99) 352mg/dL (70-99) Sodium Level 137mmol/L (136-145) Potassium Level 3.9mmol/L (3.5-5.1) Chloride Level 105mmol/L (98-107) Carbon Dioxide Level 24mmol/L (21-32) Anion Gap 8 (6-14) Blood Urea Nitrogen 8mg/dL (7-20) Creatinine 0.7mg/dL (0.6-1.0) Estimated GFR (Cockcroft-Gault) 92.7 Glucose Level 361mg/dL (70-99) Calcium Level 8.6mg/dL (8.5-10.1) White Blood Count 4.8x10^3/uL (4.0-11.0) Red Blood Count 4.65x10^6/uL (3.50-5.40) Hemoglobin 12.5g/dL (12.0-15.5) Hematocrit 39.0% (36.0-47.0) Mean Corpuscular Volume 84fL (79-100) Mean Corpuscular Hemoglobin 27pg (25-35) Mean Corpuscular Hemoglobin Concent 32g/dL (31-37) Red Cell Distribution Width 14.8% (11.5-14.5) Platelet Count 142x10^3/uL (140-400) Neutrophils (%) (Auto) 55% (31-73) Lymphocytes (%) (Auto) 36% (24-48) Monocytes (%) (Auto) 6% (0-9) Eosinophils (%) (Auto) 2% (0-3) Basophils (%) (Auto) 1% (0-3) Neutrophils # (Auto) 2.7x10^3uL (1.8-7.7) Lymphocytes # (Auto) 1.7x10^3/uL (1.0-4.8) Monocytes # (Auto) 0.3x10^3/uL (0.0-1.1) Eosinophils # (Auto) 0.1x10^3/uL (0.0-0.7) Basophils # (Auto) 0.0x10^3/uL (0.0-0.2) Test 09/17/16 11:10 09/17/16 16:17 09/17/16 21:11 09/18/16 07:31 Glucose (Fingerstick) 350mg/dL (70-99) 201mg/dL (70-99) 256mg/dL (70-99) 244mg/dL (70-99) Laboratory Tests Test 09/17/16 11:10 09/17/16 16:17 09/17/16 21:11 09/18/16 07:31 Glucose (Fingerstick) 350mg/dL (70-99) 201mg/dL (70-99) 256mg/dL (70-99) 244mg/dL (70-99) Medications Current Medications Sodium Chloride (Iv Sodium Chloride 0.9% 1000ml Bag) 1,000 ml @ 1,000 mls/hr Q1H IV Last administered on 09/15/16 23:45; Start 09/15/16 at 23:45; Stop at 00:44; Status DC Ondansetron HCl 4 mg 4 mg 1X ONCE IV Last administered on 09/16/16 00:26; Start 09/16/16 at 00:30; Stop 09/16/16 at 00:31; Status DC Insulin Human Regular/Sodium Chloride (Novolin R Vial/ Iv Normal Saline 150ml) 151.5 ml @ 0 mls/hr CONT PRN IV SEE I/O RECORD Last administered on 09/16/16 00:27; Start 09/16/16 at 00:15; Stop 09/16/16 at 10:33; Status DC Ketorolac Tromethamine 30 mg 30 mg 1X ONCE IV Last administered on 09/16/16 00:26; Start 09/16/16 at 00:30; Stop 09/16/16 at 00:31; Status DC Sodium Chloride (Iv Sodium Chloride 0.9% 1000ml Bag) 1,000 ml @ 1,000 mls/hr 1X ONCE IV Last administered on 09/16/16 00:57; Start 09/16/16 at 00:30; Stop 09/16/16 at 01:29; Status DC Ondansetron HCl 4 mg 4 mg PRN Q8HRS PRN IV NAUSEA/VOMITING; Start 09/16/16 at 00:30; Stop 09/17/16 at 00:29; Status DC Sodium Chloride (Iv Sodium Chloride 0.9% 1000ml Bag) 1,000 ml @ 150 mls/hr Q6H40M IV Last administered on 09/16/16 02:18; Start 09/16/16 at 00:27; Stop 09/16/16 at 10:42; Status DC Morphine Sulfate 2 mg PRN Q4HRS PRN IV MODERATE PAIN Last administered on 06:31; Start 09/16/16 at 02:45 Morphine Sulfate 2 mg PRN Q4HRS PRN IV PAIN; Start 09/16/16 at 02:45; Status UNV Morphine Sulfate 4 mg PRN Q4HRS PRN IV SEVERE PAIN Last administered on 08:55; Start 09/16/16 at 03:00 Morphine Sulfate 4 mg 4 mg PRN Q4HRS PRN IV PAIN; Start 09/16/16 at 03:00; Status UNV Dextrose/Sodium Chloride 1,000 ml @ 150 mls/hr 1X ONCE IV Last administered on 09/16/16 08:00; Start 09/16/16 at 10:15; Stop 09/16/16 at 10:33; Status DC Sodium Chloride (Iv Sodium Chloride 0.9% 1000ml Bag) 1,000 ml @ 75 mls/hr [id number] IV Last administered on 09/18/16 02:55; Start 09/16/16 at 10:30 Nicotine (Nicoderm Cq 14mg) 1 patch DAILY TD Last administered on 09/18/16 08: 56; Start 09/16/16 at 11:00 Insulin Detemir (Levemir) 20 units QHS SQ Last administered on 09/16/16 21:16 ; Start 09/16/16 at 21:00; Stop 09/17/16 at 16:26; Status DC Insulin Aspart (Novolog) 10 units TIDAC SQ Last administered on 09/17/16 11:41 ; Start 09/16/16 at 11:30; Stop 09/17/16 at 16:26; Status DC Dextrose 12.5 gm PRN Q15MIN PRN IV SEE COMMENTS; Start 09/16/16 at 10:45 Insulin Aspart (Novolog) 0-7 UNITS TIDWMEALS SQ Last administered on 09/18/16 09:06; Start 09/16/16 at 12:00 Dextrose 12.5 gm PRN Q15MIN PRN IV SEE COMMENTS; Start 09/16/16 at 10:45; Stop 09/16/16 at 10:45; Status DC Oxycodone/ Acetaminophen (Percocet 5/325) 1 tab PRN Q4HRS PRN PO MODERATE PAIN Last administered on 09/18/16 10:30; Start 09/16/16 at 11:45 Erythromycin (E-Mycin) 250 mg QIDACHS PO ; Start 09/16/16 at 16:30; Stop at 16:30; Status DC Fluoxetine HCl (Prozac) 20 mg BID PO Last administered on 09/18/16 08:56; Start 09/16/16 at 21:00 Acetaminophen/ Hydrocodone Bitart (Lortab 5/325) 1 tab PRN Q6HRS PRN PO MILD PAIN; Start 09/16/16 at 12:45 Lubiprostone (Amitiza) 8 mcg BIDWMEALS PO Last administered on 09/18/16 08:56 ; Start 09/16/16 at 17:00 Trazodone HCl (Desyrel) 50 mg QHS PO Last administered on 09/17/16 21:34; Start 09/16/16 at 21:00 Amoxicillin (Amoxil) 500 mg [id number] PO ; Start 09/16/16 at 14:00; Stop 09/16/16 at 14:47; Status DC Aripiprazole (Abilify) 15 mg DAILY PO Last administered on 09/18/16 08:56; Start 09/17/16 at 09:00 Ciprofloxacin (Cipro) 500 mg BID PO ; Start 09/16/16 at 21:00; Stop 09/16/16 at 21:00; Status DC Gabapentin (Neurontin) 600 mg TID PO Last administered on 09/18/16 08:56; Start 09/16/16 at 14:00 Insulin Detemir (Levemir) 50 units BID SQ Last administered on 09/17/16 08:09 ; Start 09/16/16 at 21:00; Stop 09/17/16 at 16:27; Status DC Insulin Aspart (Novolog) 50 units TIDBFRMEAL SQ Last administered on 09/17/16 11:41; Start 09/16/16 at 16:30; Stop 09/17/16 at 16:26; Status DC Ondansetron HCl (Zofran Odt) 4 mg PRN Q8HRS PRN PO NAUSEA Last administered on 09/17/16 11:16; Start 09/16/16 at 13:45 Alprazolam (Xanax) 0.5 mg PRN Q8HRS PRN PO ANXIETY / AGITATION Last administered on 09/18/16 10:30; Start 09/16/16 at 19:45 Glimepiride (Amaryl) 4 mg DAILY PO Last administered on 09/18/16 08:56; Start 09/17/16 at 12:00 Insulin Aspart (Novolog) 60 units TIDBFRMEAL SQ Last administered on 09/18/16 09:07; Start 09/17/16 at 16:30 Insulin Detemir (Levemir) 70 units QHS SQ Last administered on 09/17/16 21:38 ; Start 09/17/16 at 21:00 Insulin Detemir (Levemir) 50 units DAILY SQ Last administered on 09/18/16 09: 05; Start 09/18/16 at 09:00 Active Scripts Active Zofran (Ondansetron Hcl) 4 Mg Tablet 1 Tab PO Q8HRS PRN Amoxicillin 500 Mg Capsule 1 Cap PO TID [place] 5-325 Tablet (Acetaminophen/Hydrocodone Bitart) 1 Each Tablet 1 Tab PO PRN Q6HRS PRN Oxycodone-Acetaminophen 5-325 (Oxycodone Hcl/Acetaminophen) 1 Each Tablet 1 Tab PO PRN Q4HRS PRN Amitiza (Lubiprostone) 8 Mcg Capsule 8 Mcg PO BIDWMEALS Erythromycin (Erythromycin Base) 250 Mg Tablet 250 Mg PO QIDACHS Cipro (Ciprofloxacin Hcl) 500 Mg Tablet 500 Mg PO BID Reported Abilify (Aripiprazole) 15 Mg Tablet 15 Mg PO DAILY Prozac (Fluoxetine Hcl) 20 Mg Capsule 1 Cap PO BID Trazodone Hcl 50 Mg Tablet 1 Tab PO QHS Metformin HCl ER (Metformin HCl) 1,000 Mg [id number] 1,000 Mg PO DAILY Gabapentin 600 Mg Tablet 600 Mg PO TID Humalog (Insulin Lispro) 100 Unit/1 Ml Cartridge 50 Unit SQ TIDBFRMEAL Levemir (Insulin Detemir) 100 Unit/1 Ml Vial 50 Unit SQ BID Vitals/I & O Vital Sign - Last 24 Hours 09/17/16 09/17/16 09/17/16 09/17/16 14:00 19:00 20:00 21:41 Temp 97.7 98.8 97.7 98.8 Pulse 80 86 Resp 16 20 20 B/P 123/81 136/82 Pulse Ox 94 95 O2 Delivery Room Air Room Air 09/17/16 09/17/16 09/18/16 09/18/16 22:45 23:00 03:00 07:30 Temp 97.9 98.5 97.8 97.9 98.5 97.8 Pulse 79 79 75 Resp 18 18 B/P 137/86 131/88 109/62 Pulse Ox 94 95 95 O2 Delivery Room Air Intake and Output 09/17/16 09/17/16 09/18/16 15:00 23:00 07:00 Intake Total 480 ml 1080 ml 1440 ml Balance 480 ml 1080 ml 1440 ml ASHLYN HERRERA III DO Sep 18, 2016 10:49
[2016-09-18 11:28] VITALS: BP 132/76
[2016-09-18] MEDS ORDERED: GLIM4TAB PO (13:05)
== END 2016-09-18 13:30 | disposition home or self-care (01) | DRG 639 ==
LOC: ER 23:19 → 5 SOUTH 09-16 00:25
PROVIDERS: ADMIT Internal Medicine; ATTEND Internal Medicine
DX: E11.65 Type 2 diabetes mellitus with hyperglycemia (principal); E78.5 Hyperlipidemia, unspecified; E86.0 Dehydration; I10 Essential (primary) hypertension; J45.909 Unspecified asthma, uncomplicated; F41.9 Anxiety disorder, unspecified; R63.1 Polydipsia; Z79.4 Long term (current) use of insulin; I25.2 Old myocardial infarction; Z82.49 Family history of ischemic heart disease and other diseases of the circulatory system; Z83.3 Family history of diabetes mellitus; Z91.19 Patient's noncompliance with other medical treatment and regimen; Z90.49 Acquired absence of other specified parts of digestive tract; Z98.51 Tubal ligation status; Z91.013 Allergy to seafood
CPT/HCPCS: 36415; 80048; 81001; 82947; 85027; 93005; 96374; 96375; 99406; J1815; J1885; J2270; J2405; J7030; Q0162; 99285-25

== ENCOUNTER 2016-11-08 20:55 | Inpatient (IN) | payer OTHER ==
[~2016-11-08] VITALS: Ht 172.7 cm; Wt 103.0 kg
[~2016-11-08 20:55] MED LIST changes: +GLIM4TAB PO
[2016-11-08 21:49] LABS: BASO # 0.1 x10^3/uL (0.0-0.2); BASO % 1 % (0-3); EOS % 2 % (0-3); HEMATOCRIT 43.7 % (36.0-47.0); HEMOGLOBIN 14.5 g/dL (12.0-15.5); LYMPH # 2.6 x10^3/uL (1.0-4.8); LYMPH % 34 % (24-48); MEAN CORPUSCULAR HEMOGLOBIN 28 pg (25-35); MEAN CORPUSCULAR HGB CONC 33 g/dL (31-37); MEAN CORPUSCULAR VOLUME 83 fL (79-100); MONO % 5 % (0-9); NEUT % 57 % (31-73); PLATELET COUNT 165 x10^3/uL (140-400); RED BLOOD COUNT 5.28 x10^6/uL (3.50-5.40); RED CELL DISTRIBUTION WIDTH 15.5 % (11.5-14.5); WHITE BLOOD COUNT 7.5 x10^3/uL (4.0-11.0)
[2016-11-08 21:57] LABS: BILIRUBIN,URINE NEGATIVE (NEG); GLUCOSE,URINE >=1000 mg/dL (NEG); NITRITE,URINE NEGATIVE (NEG); PH,URINE 5.5; PROTEIN,URINE NEGATIVE (NEG-TRACE); UROBILINOGEN,URINE 0.2 mg/dL (0.2 mg/dL)
[2016-11-08 22:10] LABS: ALBUMIN 3.5 g/dL (3.4-5.0); CREATININE 0.8 mg/dL (0.6-1.0); GFR 79.4; POTASSIUM 3.7 mmol/L (3.5-5.1)
[2016-11-08 22:14] LABS: BACTERIA,URINE FEW /HPF (0-FEW); SQUAMOUS EPITHELIAL CELL,UR MOD /LPF; WBC,URINE OCC /HPF (0-4); YEAST,URINE PRESENT /HPF
[2016-11-08 22:22] LABS: ALBUMIN/GLOBULIN RATIO 0.8 (1.0-1.7); CALCIUM 9.2 mg/dL (8.5-10.1); TOTAL BILIRUBIN 0.3 mg/dL (0.2-1.0); TOTAL PROTEIN 8.1 g/dL (6.4-8.2)
[2016-11-08] MEDS ORDERED: ONDANSETRON PF 4 MG/2 ML VIAL. IV ONE (22:30)
[2016-11-08] MEDS ORDERED: KETOROLAC 15 MG/ML VIAL. IV ONE (22:30)
[2016-11-08] MEDS ORDERED: MORPHINE SULFATE 2 MG/ML DISP.SYRIN. IV ONE (22:30)
[2016-11-08] MEDS ORDERED: ACETAMINOPHEN 325 MG TABLET. PO PRN (22:45)
[2016-11-08] MEDS ORDERED: NITROGLYCERIN SUBLINGUAL 0.4 MG BOTTLE OF 25. SL PRN (22:45)
[2016-11-08] MEDS ORDERED: ONDANSETRON PF 4 MG/2 ML VIAL. IV PRN (22:45)
[2016-11-08 23:45] VITALS: BP 117/65
[2016-11-08] MEDS ORDERED: ASPIRIN CHEWABLE 81 MG TABLET. PO ONE (23:45)
[2016-11-09] MEDS ORDERED: FLUO40CA9 PO (00:12)
[2016-11-09] MEDS ORDERED: LOSA25TA PO (00:12)
[2016-11-09] MEDS ORDERED: CLON0.5T3 PO (00:12)
[2016-11-09] MEDS ORDERED: QUET50TA PO (00:12)
--- NOTE | 2016-11-09 01:48 | PHYS DOC ---
Past Medical History Past Medical History: Anxiety, Asthma, Diabetes-Type II, Hypertension, CA, Other Additional Past Medical Histor: fibroid tumors, Past Surgical History: Cholecystectomy, Tubal ligation, Other Additional Past Surgical Histo: fibroid tumor removal, R CARPAL TUNNEL Alcohol Use: None Drug Use: None Adult General Chief Complaint Chief Complaint: CHEST PAIN HPI HPI Patient is a 40 year old female with a history significant for coronary artery disease, hypertension, diabetes, status post cholecystectomy who presents here today complaining of chest pain 2 days has been intermittent in nature that increases with exertion and improves with rest. Patient reports that she does smoke. No alcohol or drugs. Patient is not allergic to any medications. Patient has any fevers shakes chills. Patient had a nonproductive cough. Patient is complaining of shortness of breath and nausea. Patient has any vomiting or diarrhea. Patient has any radiating pain. Patient reports it feels like someone sitting on her chest. Patient's physical exam was unremarkable. Patient has mildly producible tenderness to her midsternal region however she reports that this is different than the pain that caused her to come to the ER. Patient's heart was reported rhythm. Lungs were clear. Abdomen was soft nontender no rebound or guarding. Patient's ER workup was significant for normal labs. Patient normal troponin. EKG revealed normal sinus rhythm with nonspecific ST-T wave abnormalities and no evidence of a STEMI. A/P #1 atypical chest pain. This is a 40-year-old female with significant cardiac risk factors who presents here today complaining of chest discomfort. Given her risk factors and her symptoms patient will be admitted to the hospital to rule out cardiac etiology of her pain. Review of Systems Review of Systems Constitutional: Denies fever or chills [] Eyes: Denies change in visual acuity, redness, or eye pain [] HENT: Denies nasal congestion or sore throat [] All other review systems are negative except as documented in the history of present illness portion. Allergies Allergies Allergies Coded Allergies Type Severity Reaction Last Updated Verified shrimp Allergy Intermediate 06/14/16 Yes Physical Exam Physical Exam Constitutional: Well developed, well nourished, no acute distress, non-toxic appearance. [] HENT: Normocephalic, atraumatic, bilateral external ears normal, oropharynx moist, no oral exudates, nose normal. [] Eyes: PERRLA, EOMI, conjunctiva normal, no discharge. [] Neck: Normal range of motion, no tenderness, supple, no stridor. [] Cardiovascular:Heart rate regular rhythm, Lungs & Thorax: Bilateral breath sounds clear to auscultation [] Abdomen: Bowel sounds normal, soft, no tenderness, no masses, no pulsatile masses. [] Skin: Warm, dry, no erythema, no rash. [] Back: No tenderness, no CVA tenderness. [] Extremities: No tenderness, no cyanosis, no clubbing, ROM intact, no edema. [] Neurologic: Alert and oriented X 3, normal motor function, normal sensory function, no focal deficits noted. [] Psychologic: Affect normal, judgement normal, mood normal. [] Current Patient Data Vital Signs Vital Signs Date Time Temp Pulse Resp B/P (MAP) Pulse Ox O2 Delivery O2 Flow Rate FiO2 11/08/16 21:31 90 21 112/70 (84) 97 Room Air 11/08/16 20:59 98.4 98.4 Lab Values Laboratory Tests Test 11/08/16 21:42 White Blood Count 7.5 x10^3/uL (4.0-11.0) Red Blood Count 5.28 x10^6/uL (3.50-5.40) Hemoglobin 14.5 g/dL (12.0-15.5) Hematocrit 43.7 % (36.0-47.0) Mean Corpuscular Volume 83 fL (79-100) Mean Corpuscular Hemoglobin 28 pg (25-35) Mean Corpuscular Hemoglobin Concent 33 g/dL (31-37) Red Cell Distribution Width 15.5 % (11.5-14.5) H Platelet Count 165 x10^3/uL (140-400) Neutrophils (%) (Auto) 57 % (31-73) Lymphocytes (%) (Auto) 34 % (24-48) Monocytes (%) (Auto) 5 % (0-9) Eosinophils (%) (Auto) 2 % (0-3) Basophils (%) (Auto) 1 % (0-3) Neutrophils # (Auto) 4.3 x10^3uL (1.8-7.7) Lymphocytes # (Auto) 2.6 x10^3/uL (1.0-4.8) Monocytes # (Auto) 0.4 x10^3/uL (0.0-1.1) Eosinophils # (Auto) 0.2 x10^3/uL (0.0-0.7) Basophils # (Auto) 0.1 x10^3/uL (0.0-0.2) Sodium Level 136 mmol/L (136-145) Potassium Level 3.7 mmol/L (3.5-5.1) Chloride Level 99 mmol/L (98-107) Carbon Dioxide Level 25 mmol/L (21-32) Anion Gap 12 (6-14) Blood Urea Nitrogen 9 mg/dL (7-20) Creatinine 0.8 mg/dL (0.6-1.0) Estimated GFR (Cockcroft-Gault) 79.4 BUN/Creatinine Ratio 11 (6-20) Glucose Level 366 mg/dL (70-99) H Calcium Level 9.2 mg/dL (8.5-10.1) Total Bilirubin 0.3 mg/dL (0.2-1.0) Aspartate Amino Transferase (AST) 71 U/L (15-37) H Alanine Aminotransferase (ALT) 105 U/L (14-59) H Alkaline Phosphatase 109 U/L (46-116) Troponin I Quantitative < 0.017 ng/mL (0.000-0.055) DB-[id number]-Type Natriuretic Peptide 58 pg/mL (0-124) Total Protein 8.1 g/dL (6.4-8.2) Albumin 3.5 g/dL (3.4-5.0) Albumin/Globulin Ratio 0.8 (1.0-1.7) L Laboratory Tests 11/08/16 21:42 Laboratory Tests 11/08/16 21:42 EKG EKG [] Radiology/Procedures Radiology/Procedures [] Course & Med Decision Making Course & Med Decision Making Pertinent Labs and Imaging studies reviewed. (See chart for details) [] Dragon Disclaimer Dragon Disclaimer This electronic medical record was generated, in whole or in part, using a voice recognition dictation system. Departure Departure Impression: Primary Impression: Unstable angina Additional Impressions: Nonspecific chest pain Hyperglycemia Disposition: 09 ADMITTED INPATIENT Admitting Physician: Erick Denny Condition: IMPROVED Referrals: NO PCP (PCP) Problem Qualifiers MITCHELL HEIN MD November 09, 2016 01:48
--- NOTE | 2016-11-09 01:58 | ACF ---
Admission Forms Criteria ANGINA Clinical Indications for Admission to Inpatient Care (Place 'X' for any and all applicable criteria): Admission is indicated for suspected angina (e.g, chest pain pattern, angina- equivalent symptom, or other finding suggesting unstable angina) with ANY ONE of the following(1)(2)(3)(4)(5): [X]I. Angina needing acute intervention as indicated by ALL of the following ( 11)(12): [X]a) Unstable angina is present as indicated by angina that is ANY ONE of the following: [X]i) New onset [ ]ii) Nocturnal [ ]iii) Prolonged at rest [ ]iv) Progressive [X]b) Angina warrants acute intervention as indicated by ANY ONE of the following: [ ]i) Recurrent angina (e.g, not responding as previously to treatment) [ ]ii) Angina at rest or with low-level activities despite initial medical therapy [ ]iii) New or presumably new ST-segment depression on ECG [ ]iv) Signs or symptoms of heart failure (eg, dyspnea, pulmonary edema) [ ]v) New or worsening mitral regurgitation [ ]vi) Hemodynamic instability [ ]vii) Dangerous arrhythmia (eg, sustained ventricular tachycardia) [ ]viii) History of percutaneous coronary intervention within 6 months [ ]ix) History of coronary artery bypass graft surgery [ ]x) NAEEM risk score of 2 or greater[A] [X]xi) History of Diabetes(14) [ ]xii) High-risk cardiac ischemia findings on noninvasive testing (e.g, echocardiogram, treadmill testing, nuclear scan) [ ]xiii) Chronic renal insufficiency (ie, estimated GFR less than 60 mL/min/1.732m) [ ]xiv) Left ventricular ejection fraction less than 40% [ ]II. Evidence of IA (e.g, cardiac biomarkers positive, ST-segment elevation on ECG). Also use Myocardial Infarction. Extended stay beyond goal length of stay may be needed for (1)(26): [ ]a) Intravascular procedural complications such as acute vessel closure, stent malposition, or vessel dissection(27) [ ]b) Extravascular procedural complications such as retroperitoneal hematoma, pericardial effusion, or cardiac tamponade [ ]c) Entry site complications causing bleeding, hematoma, or distal ischemia and requiring ongoing monitoring, surgical repair, or surgical thrombectomy(28) [ ]d) Heart failure [ ]e) Dangerous arrhythmia [ ]f) Hemodynamic instability with persisting symptoms after intensive medical management, or recurring severe prolonged symptoms [ ]g) Postprocedural myocardial infarction or acute renal failure The original [facility] content created by [facility] has been revised. The portions of the content which have been revised are identified through the use of italic text or in bold, and [facility] has neither reviewed nor approved the modified material. All other unmodified content is copyright [facility]. Please see references footnoted in the original [facility] edition 2016 Admission Criteria Met?: Yes BETO PATEL November 09, 2016 01:58
[2016-11-09] MEDS: MORPHINE SULFATE 2 MG/ML DISP.SYRIN. IV PRN ×2 (02:32→05:51)
[2016-11-09 03:00] VITALS: BP 117/65
[2016-11-09 06:34] LABS: CHOLESTEROL/HDL RATIO 9.9
[2016-11-09 07:07] VITALS: BP 108/63
--- NOTE | 2016-11-09 07:09 | RAD ---
Indication: Chest pain. Time of exam 2133 hours. Comparison is made with prior chest from 05/12/2016. FINDINGS: The heart size is normal. The lungs are clear. No pleural effusion or pneumothorax is identified. The pulmonary vascularity is normal. IMPRESSION: No acute abnormality detected.
[2016-11-09] MEDS ORDERED: INSULIN ASPART 300 UNITS/3 ML INSULN.PEN SQ ONE (08:00)
--- NOTE | 2016-11-09 08:45 | EKG ---
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
--- NOTE | 2016-11-09 09:48 | EKG ---
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
--- NOTE | 2016-11-09 09:56 | PDOC2 ---
CARDIAC CONSULT DATE OF CONSULT Date of Consult DATE: 11/09/16 TIME: 09:14 REASON FOR CONSULT Reason for Consult: unstable angina, chest pain, HTN, DM REFERRING PHYSICIAN Referring Physician: Nikita SOURCE Source: Chart review, Patient HISTORY OF PRESENT ILLNESS HISTORY OF PRESENT ILLNESS This is a pleasant 40 yo female admitted for complains of chest pain. In the last 3-4 days she has been stressed out more so yesterday. She has hx of anxiety and depression and yesterday she was so anxious due to her son who lives with her and accdg to staff he is going to care home. She could not breath and was having tightness to midchest radiating to right shoulder. Also was nauseated at that time and felt some palpitations. Lately she also has been having heartburn episodes about 4x weekly. She does have coverage for her anxiety but takes PRN OTC for her GERD. Verbalized compliance with her home meds but her BG is uncontrolled saying BG ranges from 170 to 250. She takes chronic percocet which she is out of due to her low back pain and fibromyalgia. Denies any CAD, VTE, falls, recent injury. She does walk 3-4 times weekly about 2 miles and no difficulty in regards to this. She also takes daily ASA. PAST MEDICAL HISTORY Cardiovascular: HTN, Hyperlipidemia Pulmonary: No pertinent hx CENTRAL NERVOUS SYSTEM: Periperal neuropathy GI: GERD Heme/Onc: Cancer (cervical CA) Hepatobiliary: Cholelithiasis Psych: Anxiety, Depression Musculoskeletal: low back pain (chornic ) Rheumatologic: Fibromyalgia Infectious disease: No pertinent hx ENT: Other (edntalism) Renal/: Other (uterine fibroids; nephrolithiasis) Endocrine: Diabetes (2) Dermatology: No pertinent hx PAST SURGICAL HISTORY Past Surgical History: Cholecystectomy, Other (cervical cryo ablation) FAMILY HISTORY Family History: Coronary Artery Disease (Father [place] in the 30s) SOCIAL HISTORY Smoke: <1 pack per day (>20 yrs) ALCOHOL: none Drugs: None Lives: with Family CURRENT MEDICATIONS CURRENT MEDICATIONS Current Medications Medications (Trade) Dose Ordered Sig/Dominique Route PRN Reason Start Time Stop Time Status Last Admin Dose Admin Ondansetron HCl (Zofran) 4 mg 1X ONCE IV 11/08/16 22:30 11/08/16 22:31 DC 11/08/16 22:32 Ketorolac Tromethamine (Toradol) 15 mg 1X ONCE IV 11/08/16 22:30 11/08/16 22:31 DC 11/08/16 22:31 Morphine Sulfate 2 mg 1X ONCE IV 11/08/16 22:30 11/08/16 22:31 DC 11/08/16 22:32 Ondansetron HCl (Zofran) 4 mg PRN Q8HRS PRN IV NAUSEA/VOMITING 11/08/16 22:45 11/09/16 22:44 11/09/16 08:00 Morphine Sulfate 2 mg PRN Q2HR PRN IV PAIN 11/08/16 22:45 11/09/16 22:44 11/09/16 05:51 Aspirin (Children'S Aspirin) 324 mg 1X ONCE PO 11/08/16 23:45 11/08/16 23:46 DC 11/08/16 23:40 Insulin Aspart (Novolog) 20 units ONCE ONCE SQ 11/09/16 08:00 11/09/16 08:02 DC 11/09/16 08:04 ALLERGIES ALLERGIES: Coded Allergies: shrimp (Verified Allergy, Intermediate, 06/14/16) ROS Review of System 14 point ROS evaluated with pertinent positives noted per HPI PHYSICAL EXAM General: Alert, Oriented X3, Cooperative, No acute distress HEENT: Atraumatic, Mucous membr. moist/pink Lungs: Clear to auscultation, Normal air movement Heart: Regular rate, Normal S1, Normal S2, No murmurs Abdomen: Soft, No tenderness Extremities: No cyanosis, No edema Skin: No breakdown, No significant lesion Neuro: Normal speech, Sensation intact Psych/Mental Status: Mental status NL, Mood NL MUSCULOSKELETAL: Osteoarthritic changes both hands VITALS VITALS Vital Signs Date Time Temp Pulse Resp B/P (MAP) Pulse Ox O2 Delivery O2 Flow Rate FiO2 11/09/16 08:00 Room Air 11/09/16 07:07 97.6 64 20 108/63 (78 93 97.6 LABS Lab: Laboratory Tests Test 11/08/16 21:42 11/08/16 21:50 11/09/16 05:45 11/09/16 07:11 White Blood Count 7.5 x10^3/uL (4.0-11.0) Red Blood Count 5.28 x10^6/uL (3.50-5.40) Hemoglobin 14.5 g/dL (12.0-15.5) Hematocrit 43.7 % (36.0-47.0) Mean Corpuscular Volume 83 fL (79-100) Mean Corpuscular Hemoglobin 28 pg (25-35) Mean Corpuscular Hemoglobin Concent 33 g/dL (31-37) Red Cell Distribution Width 15.5 % (11.5-14.5) Platelet Count 165 x10^3/uL (140-400) Neutrophils (%) (Auto) 57 % (31-73) Lymphocytes (%) (Auto) 34 % (24-48) Monocytes (%) (Auto) 5 % (0-9) Eosinophils (%) (Auto) 2 % (0-3) Basophils (%) (Auto) 1 % (0-3) Neutrophils # (Auto) 4.3 x10^3uL (1.8-7.7) Lymphocytes # (Auto) 2.6 x10^3/uL (1.0-4.8) Monocytes # (Auto) 0.4 x10^3/uL (0.0-1.1) Eosinophils # (Auto) 0.2 x10^3/uL (0.0-0.7) Basophils # (Auto) 0.1 x10^3/uL (0.0-0.2) Sodium Level 136 mmol/L (136-145) Potassium Level 3.7 mmol/L (3.5-5.1) Chloride Level 99 mmol/L (98-107) Carbon Dioxide Level 25 mmol/L (21-32) Anion Gap 12 (6-14) Blood Urea Nitrogen 9 mg/dL (7-20) Creatinine 0.8 mg/dL (0.6-1.0) Estimated GFR (Cockcroft-Gault) 79.4 BUN/Creatinine Ratio 11 (6-20) Glucose Level 366 mg/dL (70-99) Calcium Level 9.2 mg/dL (8.5-10.1) Total Bilirubin 0.3 mg/dL (0.2-1.0) Aspartate Amino Transf (AST/SGOT) 71 U/L (15-37) Alanine Aminotransferase (ALT/SGPT) 105 U/L (14-59) Alkaline Phosphatase 109 U/L (46-116) Troponin I Quantitative < 0.017 ng/mL (0.000-0.055) < 0.017 ng/mL (0.000-0.055) TY-Fzm-G-Type Natriuretic Peptide 58 pg/mL (0-124) Total Protein 8.1 g/dL (6.4-8.2) Albumin 3.5 g/dL (3.4-5.0) Albumin/Globulin Ratio 0.8 (1.0-1.7) Urine Collection Type Unknown Urine Color Yellow Urine Clarity Clear Urine pH 5.5 Urine Specific [place] >=1.030 Urine Protein Negative mg/dL (NEG-TRACE) Urine Glucose (UA) >=1000 mg/dL (NEG) Urine Ketones (Stick) Negative mg/dL (NEG) Urine Blood Large (NEG) Urine Nitrite Negative (NEG) Urine Bilirubin Negative (NEG) Urine Urobilinogen Dipstick 0.2 mg/dL (0.2 mg/dL) Urine Leukocyte Esterase Negative (NEG) Urine RBC 11-20 /HPF (0-2) Urine WBC Occ /HPF (0-4) Urine Squamous Epithelial Cells Mod /LPF Urine Bacteria Few /HPF (0-FEW) Urine Yeast Present /HPF Triglycerides Level 436 mg/dL (0-150) Cholesterol Level 168 mg/dL (0-200) LDL Cholesterol, Calculated 64 mg/dL (0-100) VLDL Cholesterol, Calculated 87 mg/dL (0-40) Non-HDL Cholesterol Calculated 151 mg/dL (0-129) HDL Cholesterol 17 mg/dL (40-60) Cholesterol/HDL Ratio 9.9 Glucose (Fingerstick) 369 mg/dL (70-99) ASSESSMENT/PLAN ASSESSMENT/PLAN 1. Atypical chest pain: likely from anxiety with GERD component 2. GERD exacerbation (hx of PUD): heartburn 4x weekly, no routine coverage. defer to pcp 3. Anxiety/depression/fibromyalgia/chronic opioid dependence: Pt is out of percocet, likely takes this routinely instead of PRN? 4. HTN: controlled 5. DM2: Uncontrolled, BG in the 300s. Metformin plus insulin dependent 6. DLP: LDL on goal. HDL 17 and TG 436 7. Tobaccoism 8. Obesity with possible FLORES 9. Hematuria: verbalized starting menstrual cycle. Recommendations 1. TTE and MPI today 2. Dietitian to see. Need better BG control. 3. Smoking cessation, discussed lifestyle modifications, weight loss 4. Resume lipitor, home losartan. Add fish oil 5. Start protonix, resume home ASA. 6. Anxiety control per PCP 7. A1C TSH Problems: [facility] November 09, 2016 09:56
[2016-11-09 10:15] VITALS: BP 118/73
[2016-11-09] MEDS ORDERED: oxyCODONE/APAP 5/325 1 TAB TABLET PO PRN (10:15)
[2016-11-09] MEDS ORDERED: OMEGA-3 FATTY ACIDS/FISH OIL 1,000 MG CAPSULE. PO SCH (10:30)
[2016-11-09] MEDS ORDERED: PANTOPRAZOLE 40 MG TABLET.DR. PO SCH (10:30)
[2016-11-09] MEDS ORDERED: REGADENOSON 0.4 MG/5 ML DISP.SYRIN. IV ONE (11:11)
[2016-11-09 11:55] LABS: NEG OBC UR NEG; POS OBC UR POS
[2016-11-09 12:09] LABS: BARBITURATES NEG (NEG); BENZODIAZEPINES NEG (NEG); CANNABINOIDS NEG (NEG); COCAINE NEG (NEG); METHADONE NEG (NEG); OPIATES POS (NEG); PHENCYCLIDINE NEG (NEG)
[2016-11-09] MEDS ORDERED: traZODone 50 MG TABLET. PO PRN (13:30)
[2016-11-09] MEDS ORDERED: ONDANSETRON ODT 4 MG TAB.RAPDIS. PO PRN (13:45)
[2016-11-09] MEDS ORDERED: QUEtiapine 25 MG TABLET. PO PRN (13:45)
[2016-11-09] MEDS ORDERED: clonazePAM 0.5 MG TABLET PO SCH (14:00)
[2016-11-09] MEDS ORDERED: FLUoxetine HCL 20 MG CAPSULE PO SCH (14:00)
[2016-11-09] MEDS ORDERED: GABAPENTIN 300 MG CAPSULE. PO SCH (14:00)
--- NOTE | 2016-11-09 14:10 | RAD ---
APPROVED REPORT Test Type: Pharmacological Stress Nurse/Tech: RYLAN Chiang Test Indications: chest pain Cardiac History: See Electronic Medical Record, HTN, current smoker Medications: See Electronic Medical Record Medical History: See Electronic Medical Record Resting ECG: SR Resting Heart Rate: 65 bpm Resting Blood Pressure: 113/65mmHg Pretest Chest Pain: No chest pain Nurse/Tech Notes S1S2, Lungs CTA, c/o neck and back pain Consent: The procedure was explained to the patient in lay terms. Informed consent was witnessed. Raul eout was entered into [employer] History and Stress Test performed by RT Sterling (R) (N) Pharm. Details Pharmacologic stress testing was performed using 0.4mg per 5ml of regadenoson given intravenously ove r 7-10 seconds. Stress Symptoms Pt c/o chest tightness and SOA during test, resolved quickly. No EKG changes noted. Pt has a history of asthma. POST EXERCISE Reason for Termination: Infusion complete Max HR: 98 bpm Max Blood Pressure: 113/65mmHg Chest Pain: No. Arrhythmia: No. ST Change: No. INTERPRETATION Stress EKG Conclusion: Baseline EKG showed sinus rhythm. No ischemic changes at peak stress. No arr hythmias. Imaging Protocol IMAGE PROTOCOL: Rest Tc-99m/stress Tc-99m 1 day Rest: Stress: Viability: Radiopharm.Tc99m OowdvnsckQj04a Sestamibi Accu01hMm 33mCi Duration 15min. 10min. Img Date 11/09/2016 11/09/2016 Inj-Img Livj29ine. 60min. Rest Admin Site:IV - Left AntecubitalAdministrator:KIRSTEN Morin Stress Admin Site: IV - Left AntecubitalAdministrator: RT Sterling (R)(N) STRESS DATA End Diast. Vol.105.0mlAv. Heart Rate69.0bpm End Syst. Vol.30.0mlCO Index BSA0.0L/min Myocardial Jeht960.0gEject. Imbkolzp29.0% Stress Rates Pk. Fill Rate2.79EDV/secLVtime Pk. Fill 220.04msec Pk. Empty Rate3.09ESV/secLVtime Pk. Eqkkk777.59msec 1/3 Pk. Fill1.76EDV/sec Stress Scores Regional WT0.00Summed WT2.00 Regional WM0.00Summed WM0.00 Study quality was fair. Left Ventricular size was Normal at Rest and Stress. Lung uptake was Normal. Left Ventricular ejection fraction is 71%. The rest and stress images show normal perfusion, normal contraction and thickening. LV Perf. Quant 17 Seg. SSS1.00 17 Seg. SRS0.00 17 Seg. SDS1.00 Stress Defect Extent (% LAD)0.00Rest Defect Extent (% LAD)0.00Rev. Defect Extent (% LAD)0.00 Stress Defect Extent (% LCX) 0.00Rest Defect Extent (% LCX)0.00Rev. Defect Extent (% LCX)0.00 Stress Defect Extent (% RCA)0.00Rest Defect Extent (% RCA)0.00Rev. Defect Extent (% RCA)0.00 Stress Defect Extent (% SHAMIR)0.00Rest Defect Extent (% SHAMIR)0.00Rev. Defect Extent (% SHAMIR)0.00 Conclusion 1. Regadenoson cardioisotope stress test did not show any evidence of ischemia or infarct. 2. Normal left ventricular systolic function with ejection fraction calculated at 71%. 3. Low risk for cardiac events.
--- NOTE | 2016-11-09 14:31 | CARD ---
APPROVED REPORT EXAM: Two-dimensional and M-mode echocardiogram with Doppler and color Doppler. Other Information Quality : Average Rhythm : NSR INDICATION Chest Pain 2D DIMENSIONS RVDd3.4 (2.9-3.5cm)Left Atrium(2D)3.5 (1.6-4.0cm) IVSd1.2 (0.7-1.1cm)Aortic Root(2D)2.7 (2.0-3.7cm) LVDd4.6 (3.9-5.9cm)LVOT Diameter2.1 (1.8-2.4cm) PWd1.2 (0.7-1.1cm)LVDs2.8 (2.5-4.0cm) FS (%) 39.8 %SV67.7 ml LVEF(%)70.5 (>50%) Aortic Valve AoV Peak Lobo.196.2cm/sAoV VTI37.3cm AO Peak GR.15.4mmHgLVOT Peak Lobo.109.3cm/s LVOT VTI 21.36cmAO Mean GR.8mmHg [place] (VMAX)1.13gp1JFE (VTI)2.01cm2 Mitral Valve MV E Uwnmjklz15.6cm/sMV DECEL DPUT766qe MV A Hrzvjpsf95.7cm/sMV E Mean Gr.1mmHg MV CZH72qeA/A Ratio1.3 MV A Quunkidh960koMEM (PHT)3.49cm2 TDI E/Lateral E'8.5E/Medial E'9.4 Pulmonary Valve PV Peak Zqvvrjzq553.1cm/sPV Peak Grad.4mmHg RVOT VTI28.2cm Tricuspid Valve TR P. Nqfgustx994ok/sRAP KPDSUSIL1qlGm TR Peak Gr.69qjZcCUPT75zgTq Pulmonary Vein S1 Xbogkeft09.4cm/sD2 Lhywrxjo43.7cm/s LEFT VENTRICLE The left ventricle is normal size. There is borderline concentric left ventricular hypertrophy. Left ventricle systolic function is normal. The Ejection Fraction is 65-70%. There is normal LV segmental wall motion. The left ventricular diastolic function and filling is normal for age. RIGHT VENTRICLE The right ventricle is normal size. The right ventricular systolic function is normal. ATRIA The left atrium size is normal. The right atrium size is normal. The interatrial septum is intact wit h no evidence for an atrial septal defect or patent foramen ovale as noted on 2-D or Doppler imaging. AORTIC VALVE The aortic valve is normal in structure and function. The aortic valve is trileaflet. Doppler and Col or Flow revealed no significant aortic regurgitation. There is no significant aortic valvular stenosi s. MITRAL VALVE The mitral valve is normal in structure and function. There is no mitral valve stenosis. Doppler and Color Flow revealed no mitral valve regurgitation noted. TRICUSPID VALVE The tricuspid valve is normal in structure and function. Doppler and Color Flow revealed mild tricusp id regurgitation. The PA pressure was estimated at 32 mmHg. There is no tricuspid valve stenosis. PULMONIC VALVE The pulmonic valve is not well visualized. Doppler and Color Flow revealed no pulmonic valvular regur gitation. There is no pulmonic valvular stenosis. GREAT VESSELS The aortic root is normal in size. Normal pulmonary venous flow (Doppler). The IVC is normal in size and collapses >50% with inspiration. PERICARDIAL EFFUSION There is no evidence of significant pericardial effusion. Critical Notification Critical Value: No <Conclusion> Left ventricle systolic function is normal. The Ejection Fraction is 65-70%. There is normal LV segmental wall motion. Doppler and Color Flow revealed mild tricuspid regurgitation. The PA pressure was estimated at 32 mmHg. There is no evidence of significant pericardial effusion.
[2016-11-09] MEDS ORDERED: LOSARTAN POTASSIUM 25 MG TABLET. PO SCH (15:00)
[2016-11-09] MEDS ORDERED: ARIPiprazole 5 MG TABLET PO SCH (15:00)
[2016-11-09 15:01] VITALS: BP 130/71
[2016-11-09] MEDS ORDERED: INSULIN ASPART 300 UNITS/3 ML INSULN.PEN SQ SCH (16:30)
[2016-11-09 16:44] VITALS: BP 130/71
[2016-11-09] MEDS ORDERED: LUBIPROSTONE 8 MCG CAPSULE PO SCH (17:00)
[2016-11-09] MEDS ORDERED: INSULIN DETEMIR 300 UNITS/3 ML INSULN.PEN. SQ SCH (21:00)
[2016-11-09] MEDS ORDERED: ATORVASTATIN CALCIUM 20 MG TABLET PO SCH (21:00)
--- NOTE | 2016-11-09 21:38 | HP ---
ADMIT DATE: 11/09/2016 CHIEF COMPLAINT: Chest pain. HISTORY OF PRESENT ILLNESS: The patient is a 40-year-old woman with history of CAD, stated AR 2 years ago, as well as diabetes, hypertension, who presented to the Emergency Room with chest pain going on for the past 2 days. She relates that pain actually gets worse with exertion and wanes with rest. Pain is in the middle of her chest, pressure time and not radiating anywhere, feels like someone sitting on her chest. Pain is reproducible with pressure on her mid sternal region, but she claims that this is different than what made her present to the Emergency Room. She continues to smoke. She is unsure what actually was done with her AR 2 years ago, not sure if she had a cardiac cath or stents at that time. PAST MEDICAL HISTORY: CAD as above, diabetes, hypertension, anxiety, COPD, cholecystectomy, tubal ligation, fibroid, tumor removal and right carpal tunnel release. FAMILY HISTORY: Positive for heart disease in father in his 50s. 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 Denies any other drugs or alcohol. ALLERGIES: SHRIMP CAUSING ANAPHYLAXIS. MEDICATIONS: MAR reconciled with home medications. REVIEW OF SYSTEMS: Positive as per HPI. She also complains of the shoulder and neck pain and headaches. She feels rather stressed as one of her son was jailed yesterday. PHYSICAL EXAMINATION: VITAL SIGNS: From today show a blood pressure of 118/73, heart rate of 64, respiratory rate at 20. She is afebrile. GENERAL: This is a morbidly obese 40-year-old woman, alert and oriented, in no acute distress. HEENT: Shows no scleral icterus. NECK: Supple. LUNGS: Clear to auscultation bilaterally. HEART: Regular rate and rhythm. ABDOMEN: Has positive bowel sounds, soft, nontender. EXTREMITIES: Show no edema. LABORATORY DATA: CBC with a WBC of 7.5, hemoglobin 14.5, platelets of 165, BUN and creatinine at 9 and 0.8. Normal electrolytes. LFTs slightly elevated with an AST, ALT of 71 and 105, no comparison available. Tox screen positive for opiates (after receiving narcotics in the ER). UA with specific gravity of greater than 1.030, otherwise negative for infection. IMAGING STUDIES: Chest x-ray in the Emergency Room shows no acute abnormality. ASSESSMENT AND PLAN: This is a 40-year-old woman with appearance of CAD history, clearly multiple risk factors. She has been admitted to the cardiac care unit for further monitoring. Cardiology service has been consulted. She wants to go stress test later today. We will await further recommendation today. Her medication will be continued including her psych medications. Her diabetes, currently is very poorly controlled. She did not receive her night insulin of 50 b.i.d. We will restart that as well as t.i.d. Humalog dose. Continue insulin sliding scale, adjust Levemir as indicated. For further risk stratification, we will also obtain a lipid profile in a.m. CATA YBARRA MD DR: UR/nts JOB#: [id number] / [id number] ADELFO
--- NOTE | 2016-11-13 02:03 | DS ---
DATE OF DISCHARGE: 11/10/2016 CHIEF COMPLAINT: Chest pain. Please refer to further details from H and P, dictated on the same day. DISCHARGE DIAGNOSES: Chest pain, noncardiac, suspected gastroesophageal reflux disease. DISCHARGE DISPOSITION: To home. DISCHARGE CONDITION: Improved. DISCHARGE MEDICATIONS: Please refer to MAR. DISCHARGE INSTRUCTIONS: Smoking cessation. Follow up with PCP and Cardiology. CATA YBARRA MD DR: SHIRA/nts JOB#: [id number] / [id number] ADELFO
== END 2016-11-09 21:15 | disposition home or self-care (01) | DRG 392 ==
LOC: ER 20:55 → 2 SOUTH 21:43
PROVIDERS: ADMIT Internal Medicine; ATTEND Internal Medicine
DX: K21.9 Gastro-esophageal reflux disease without esophagitis (principal); F11.20 Opioid dependence, uncomplicated; E78.5 Hyperlipidemia, unspecified; E66.9 Obesity, unspecified; F17.210 Nicotine dependence, cigarettes, uncomplicated; F41.9 Anxiety disorder, unspecified; F32.9 Major depressive disorder, single episode, unspecified; E11.42 Type 2 diabetes mellitus with diabetic polyneuropathy; M54.5 Low back pain; E11.65 Type 2 diabetes mellitus with hyperglycemia; M79.7 Fibromyalgia; I10 Essential (primary) hypertension; J44.9 Chronic obstructive pulmonary disease, unspecified; R31.9 Hematuria, unspecified; Z82.49 Family history of ischemic heart disease and other diseases of the circulatory system; Z85.41 Personal history of malignant neoplasm of cervix uteri; Z87.11 Personal history of peptic ulcer disease; I25.2 Old myocardial infarction; Z90.49 Acquired absence of other specified parts of digestive tract; Z79.82 Long term (current) use of aspirin; Z68.34 Body mass index [BMI] 34.0-34.9, adult; Z91.018 Allergy to other foods; I25.10 Atherosclerotic heart disease of native coronary artery without angina pectoris
CPT/HCPCS: 36415; 71010; 78452; 80053; 80061; 81001; 81025; 82947; 83036; 83880; 84443; 84484; 85027; 93005; 93017; 93306; 96374; 96375; 96376; 99406; A9500; G0481; J1815; J1885; J2270; J2405; J2785; 99285-25

== ENCOUNTER 2016-11-26 11:58 | Emergency (ER) | payer OTHER ==
[~2016-11-26] VITALS: Ht 172.7 cm; Wt 102.5 kg
[~2016-11-26 11:58] MED LIST changes: +CLON0.5T3 PO; +FLUO40CA9 PO; +LOSA25TA PO; +QUET50TA PO
[2016-11-26 12:52] VITALS: BP 154/86
[2016-11-26] MEDS ORDERED: CYCL10TA2 PO (13:07)
--- NOTE | 2016-11-26 13:07 | PHYS DOC ---
Past Medical History Past Medical History: Depression, Diabetes-Type II, High Cholesterol, Hypertension Additional Past Medical Histor: fibroid tumors, Past Surgical History: Cholecystectomy, Other Additional Past Surgical Histo: R carpal tunnel, fibroids removed Alcohol Use: None Drug Use: None Adult General Chief Complaint Chief Complaint: Neck Pain HPI HPI Patient is a 41 year old female presents emergency department stating that she has been having right jaw pain into her right ear and down into her right neck for the last 2 months. She states the right ear has a tendency to pop. She states that she was seen by her primary care physician and was told that she didn't have strep throat. They did not evaluate the situation any further. Patient states that she has had increased pain in the last few days. She states she's been taken ibuprofen and naproxen for the pain and discomfort with no relief. Patient denies fever, chills or any nausea vomiting Review of Systems Review of Systems Constitutional: Denies fever or chills [] Eyes: Denies change in visual acuity, redness, or eye pain [] HENT: Denies nasal congestion or sore throat. Complaint of right jaw pain into the right ear and down into the right neck Respiratory: Denies cough or shortness of breath [] Cardiovascular: No additional information not addressed in HPI [] GI: Denies abdominal pain, nausea, vomiting, bloody stools or diarrhea [] : Denies dysuria or hematuria [] Musculoskeletal: Denies back pain or joint pain [] Integument: Denies rash or skin lesions [] Neurologic: Denies headache, focal weakness or sensory changes [] Endocrine: Denies polyuria or polydipsia [] Allergies Allergies Allergies Coded Allergies Type Severity Reaction Last Updated Verified shrimp Allergy Intermediate 11/26/16 Yes Physical Exam Physical Exam Constitutional: Well developed, well nourished, no acute distress, non-toxic appearance. [] HENT: Normocephalic, atraumatic, bilateral external ears normal, oropharynx moist, no oral exudates, nose normal. Bilateral tympanic membranes appear to be normal. Throat with no erythematous no redness and no drainage noted. Patient was noted to have tenderness at the TMJ on the right side. No anterior cervical adenopathy noted Eyes: PERRLA, EOMI, conjunctiva normal, no discharge. [] Neck: Normal range of motion, no tenderness, supple, no stridor. [] Cardiovascular:Heart rate regular rhythm, no murmur [] Lungs & Thorax: Bilateral breath sounds clear to auscultation [] Skin: Warm, dry, no erythema, no rash. [] Back: No tenderness Extremities: No tenderness, no cyanosis, no clubbing, ROM intact, no edema. [] Neurologic: Alert and oriented X 3, normal motor function, normal sensory function, no focal deficits noted. [] Psychologic: Affect normal, judgement normal, mood normal. [] Current Patient Data Vital Signs Vital Signs Date Time Temp Pulse Resp B/P (MAP) Pulse Ox O2 Delivery O2 Flow Rate FiO2 11/26/16 12:52 98.0 91 18 96 Room Air 98.0 EKG EKG [] Radiology/Procedures Radiology/Procedures [] Course & Med Decision Making Course & Med Decision Making Pertinent Labs and Imaging studies reviewed. (See chart for details) Spoke with patient in regards to TMJ and grinding her teeth at night. Patient states she has no teeth explained to her that whenever you are grinding whether it's teeth are your comes he'll have increased pain in the jawline. Patient states I never primary teeth a nephrogram and gums and never crying did in the past. Spoke with patient regards to treatment with nonsteroidal anti- inflammatories and Flexeril. Patient states she's been taking ibuprofen as well as naproxen explained to patient that both those medications should not be taken at the same time they should be either one or the other. Spoke with patient again in regards to treatment of TMJ. Patient states she does not feel that that is what she has. Explained to patient that is what were treating at this time. Patient began to cry. Patient will be discharged with Flexeril with recommendations for 800 mg of nonsteroidal anti-inflammatory, ibuprofen. Recommended following up with her primary care physician in the next week. Patient was instructed that Flexeril will cause drowsiness do not take if you need to be alert and oriented. [] Dragon Disclaimer Dragon Disclaimer This electronic medical record was generated, in whole or in part, using a voice recognition dictation system. Departure Departure Impression: Primary Impression: TMJ (sprain of temporomandibular joint) Disposition: 01 HOME, SELF-CARE Condition: STABLE Referrals: NO PCP (PCP) Patient Instructions: Temporomandibular Joint Pain-Brief Additional Instructions: Activity as tolerated. Vacation as prescribed. Ibuprofen 800 mg every 8 hours with food stop taking few develop an upset stomach. Flexeril as a muscle relaxer this medication will cause drowsiness do not take any be alert and oriented. Warm moist packs to the jaw area and neck area. Follow-up through primary care physician in the next week. Return back to emergency prior signs symptoms of become worse. Scripts Cyclobenzaprine Hcl (CYCLOBENZAPRINE HCL) 10 Mg Tablet 10 MG PO TID Y for PAIN, #30 TAB Prov: NICOLA MARTINEZ APRN 11/26/16 NICOLA MARTINEZ APRN November 26, 2016 13:07
== END 2016-11-26 13:24 | disposition home or self-care (01) ==
LOC: ER 13:11
DX: S03.41XA Sprain of jaw, right side, initial encounter (principal); E11.9 Type 2 diabetes mellitus without complications; E78.00 Pure hypercholesterolemia, unspecified; I10 Essential (primary) hypertension; Z90.49 Acquired absence of other specified parts of digestive tract; Z91.013 Allergy to seafood; X58.XXXA Exposure to other specified factors, initial encounter; Y93.89 Activity, other specified; Y92.89 Other specified places as the place of occurrence of the external cause; Y99.8 Other external cause status
CPT/HCPCS: 81025; 84703; 99283

== ENCOUNTER 2017-01-09 03:33 | Emergency (ER) | payer OTHER ==
[~2017-01-09] VITALS: Ht 172.7 cm; Wt 103.0 kg
[~2017-01-09 03:33] MED LIST changes: -ARIP15TA2 PO; +ARIP15TA3 PO; +ARIP20TA5 PO; -ARIP20TA8 PO; -CLIN-44 PO; +CLIN150C14 PO; +CYCL10TA2 PO; -LUBI8CAP3 PO; +LUBI8CAP4 PO
[2017-01-09 03:48] VITALS: BP 154/84
[2017-01-09] MEDS ORDERED: HYDROcodone/APAP 7.5/325MG 1 TAB TABLET PO ONE (04:30)
[2017-01-09] MEDS ORDERED: NAPR500T PO (04:44)
--- NOTE | 2017-01-09 04:45 | PHYS DOC ---
Past Medical History Past Medical History: Anxiety, Depression, Diabetes-Type II, High Cholesterol, Hypertension Additional Past Medical Histor: fibroid tumors, Past Surgical History: Cholecystectomy, Other Additional Past Surgical Histo: R carpal tunnel, fibroids removed Alcohol Use: None Drug Use: None Adult General Chief Complaint Chief Complaint: ELBOW PROBLEM HPI HPI Patient is a 41 year old female who presents with complaint of right elbow pain. Patient states that she fell onto the right elbow 5 days prior to arrival in the emergency department. Patient states that she has been having pain and swelling along the lateral aspect of the right elbow. Patient rates her pain on my examination is 8 out of 10. Patient states that the pain worsens when she tries to extend the right upper extremity. Due to continued pain the patient came to the emergency department for evaluation as she thinks she may need an x- ray to ensure no broken bones. Patient has taken xvob-sde-[id number] medications with no relief in symptoms. Patient denies any other injuries. Review of Systems Review of Systems Constitutional: Denies fever or chills [] Musculoskeletal: Right elbow pain and swelling [] Integument: Denies rash or skin lesions [] Neurologic: Denies headache, focal weakness or sensory changes [] Current Medications Current Medications Current Medications Medications (Trade) Dose Ordered Sig/Dominique Start Time Stop Time Status Last Admin Dose Admin Acetaminophen/ Hydrocodone Bitart (Lortab 7.5/325) 1 tab 1X ONCE 01/09/17 04:30 01/09/17 04:31 DC 01/09/17 04:30 1 TAB Allergies Allergies Allergies Coded Allergies Type Severity Reaction Last Updated Verified shrimp Allergy Intermediate 11/26/16 Yes Physical Exam Physical Exam Constitutional: Alert, afebrile, appears in moderate discomfort. [] HENT: Normocephalic, atraumatic, bilateral external ears normal, oropharynx moist, no oral exudates, nose normal. [] Skin: Warm, dry, no erythema, no rash. [] Back: No tenderness, no CVA tenderness. [] Extremities: No obvious deformity, mild soft tissue swelling overlying right lateral condyle, tender to palpation, no warmth or erythema present, decreased range of motion in right elbow secondary to pain. [] Neurologic: Alert and oriented X 3, normal motor function, normal sensory function, no focal deficits noted. [] Current Patient Data Vital Signs Vital Signs Date Time Temp Pulse Resp B/P (MAP) Pulse Ox O2 Delivery O2 Flow Rate FiO2 01/09/17 03:48 98.8 97 18 96 Room Air 98.8 Lab Values Laboratory Tests Test 01/09/17 03:13 POC Urine HCG, Qualitative Hcg negative (Negative) EKG EKG Not performed [] Radiology/Procedures Radiology/Procedures 3 view right elbow x-ray interpreted by me: No fractures, normal alignment, no joint effusion Course & Med Decision Making Course & Med Decision Making Pertinent Labs and Imaging studies reviewed. (See chart for details) X-rays were negative for fracture. Patient was provided with a sling in the emergency department for comfort and patient was discharged with prescription for naproxen for continued treatment of lateral bursitis. The patient was advised follow-up with her primary doctor in the next 7 days if symptoms do not improve. Upon review of the triage note, the patient had mentioned that her blood sugars were running high, however the patient made no mention of this to me during my history taking and did not inquire about her blood sugar at any time during my interactions. This was not checked at her visit. The patient's vital signs were stable in the emergency department and I have low suspicion for severe diabetic complications. Dragon Disclaimer Dragon Disclaimer This electronic medical record was generated, in whole or in part, using a voice recognition dictation system. Departure Departure Impression: Primary Impression: Bursitis of elbow Disposition: 01 HOME, SELF-CARE Condition: IMPROVED Referrals: NON,STAFF (PCP) Patient Instructions: Bursitis Additional Instructions: Follow-up with your primary doctor in the next 3-5 days for reevaluation. Return to emergency department for any worsening symptoms. Scripts Naproxen (NAPROSYN) 500 Mg Tablet 500 MG PO BID Y for PAIN, #20 TAB Prov: ALICE HAZEL MD 01/09/17 Problem Qualifiers Primary Impression: Bursitis of elbow Elbow bursitis location: unspecified Laterality: right Qualified Codes: M70.31 - Other bursitis of elbow, right elbow ALICE HAZEL MD Jan 09, 2017 04:45
--- NOTE | 2017-01-09 07:51 | RAD ---
Examination: 3 views of the right elbow History: History of elbow pain after fall Comparison: None available Findings: The alignment of the elbow joint grossly appears unremarkable. There is no acute fracture or dislocation identified. No evidence of elbow joint effusion. Impression: No acute osseous findings.
== END 2017-01-09 05:27 | disposition home or self-care (01) ==
LOC: ER 03:33
DX: M70.31 Other bursitis of elbow, right elbow (principal); E11.9 Type 2 diabetes mellitus without complications; E78.00 Pure hypercholesterolemia, unspecified; F41.9 Anxiety disorder, unspecified; F32.9 Major depressive disorder, single episode, unspecified; I10 Essential (primary) hypertension; Z90.49 Acquired absence of other specified parts of digestive tract; Z91.013 Allergy to seafood; Y93.89 Activity, other specified
CPT/HCPCS: 73080; 81025; 99284

== ENCOUNTER 2017-01-26 04:12 | Emergency (ER) | payer OTHER ==
[~2017-01-26] VITALS: Ht 172.7 cm; Wt 103.0 kg
[~2017-01-26 04:12] MED LIST changes: +NAPR500T PO
[2017-01-26 05:15] LABS: BILIRUBIN,URINE NEGATIVE (NEG); GLUCOSE,URINE >=1000 mg/dL (NEG); NITRITE,URINE NEGATIVE (NEG); PROTEIN,URINE NEGATIVE (NEG-TRACE); UROBILINOGEN,URINE 0.2 mg/dL (0.2 mg/dL)
--- NOTE | 2017-01-26 05:21 | PHYS DOC ---
Past Medical History Past Medical History: Anxiety, Depression, Diabetes-Type II, High Cholesterol, Hypertension Additional Past Medical Histor: fibroid tumors, Past Surgical History: Cholecystectomy, Other Additional Past Surgical Histo: R carpal tunnel, fibroids removed Alcohol Use: None Drug Use: None Adult General Chief Complaint Chief Complaint: GROIN PAIN HPI HPI Patient is a 41 year old female who has a history significant for diabetes presents here today secondary to burning sensation to her groin region. Patient reports that she was recently treated with an antibiotic and was given Diflucan and a intravaginal suppository cream to treat her yeast infection. Patient reports after using her intravaginal suppository cream she had severe burning sensation. Patient denies any other symptomology sign. Patient has any fevers shakes chills nausea vomiting diarrhea cough cold runny nose. Patient denies any dysuria frequency or urgency. Patient presents today secondary to discomfort in her perineal area after the vaginal suppositories were placed for her human of her [place] infection. Constitutional: Denies fever or chills [] Eyes: Denies change in visual acuity, redness, or eye pain [] HENT: Denies nasal congestion or sore throat [] All other review systems are negative except as documented in the history of present illness portion. Constitutional: Well developed, well nourished, no acute distress, non-toxic appearance. [] HENT: Normocephalic, atraumatic, bilateral external ears normal, Eyes: no discharge. [] Neck: no stridor. [] Cardiovascular:Heart rate regular rhythm, Lungs & Thorax: Bilateral breath sounds clear to auscultation [] Abdomen: Bowel sounds normal, soft, no tenderness, no masses, no pulsatile masses. [] Skin: Warm, dry, no erythema, no rash. [] Back: No tenderness, no CVA tenderness. [] Extremities: No tenderness, no cyanosis, no clubbing, ROM intact, no edema. [] Neurologic: Alert and oriented X 3, normal motor function, normal sensory function, no focal deficits noted. [] Psychologic: Affect normal, judgement normal, mood normal. [] : Patient's perineal area reveals erythematous excoriated slightly edematous labia majora and minora. Tender to palpation. No discharge noted. No drainage. Patient's ER hospital course was significant for an Accu-Chek that was greater than 400. Patient will have an IV started and will be given a liter of normal saline as well as 8 units of IV regular insulin to treat her hyperglycemia. We will check her chemistry and a UA to make sure she is not in diabetic ketoacidosis. Patient reports that she has an appointment today at 7 AM the walk -in by her primary care physician to further evaluate her elevated hemoglobin A1c and her diabetes. Assessment and plan: This is a 41-year-old female who presents here today secondary to vaginal irritation after utilizing antifungal intravaginal suppositories for yeast infection that she obtained after utilizing antibiotics. Patient was also taking by mouth Diflucan. Patient reports that almost immediately after placing suppository she started feeling severe discomfort burning sensation in her vaginal region. 1. Vaginitis; most likely secondary to yeast however also has a component of likely allergic component from the antifungal cream that was utilized to treat her yeast infection. I have discussed with the patient that we will ask her to stop using the cream and I will write her prescription for Diflucan for 3 days. 2. Hyperglycemia: She will be treated with IV fluids, IV insulin, and will be reevaluated. Patient will be ruled out for diabetic ketoacidosis prior to discharge. Patient has an appointment at 7 AM today and she really wants to try to make this appointment. The point today is to see her primary care physician to help maintain and manage her hyperglycemia. Patient reports that her hemoglobin A1c was greater than 12 and has an appointment today with her primary care physician to help her manage her blood sugars better. We will repeat her blood sugar after fluids and insulin was given. If patient's anion gap is unremarkable and she is not acidotic she'll be stable for discharge to follow-up as planned. Current Medications Current Medications Current Medications Medications (Trade) Dose Ordered Sig/Dominique Start Time Stop Time Status Last Admin Dose Admin Fluconazole (Diflucan) 100 mg 1X ONCE 01/26/17 05:30 01/26/17 05:31 Insulin Human Regular (NovoLIN R VIAL) 8 unit 1X ONCE 01/26/17 05:30 01/26/17 05:31 Sodium Chloride 1,000 ml @ 1,000 mls/hr 1X ONCE 01/26/17 05:30 01/26/17 06:29 01/26/17 05:21 1,000 MLS/HR Allergies Allergies Allergies Coded Allergies Type Severity Reaction Last Updated Verified shrimp Allergy Intermediate 11/26/16 Yes Current Patient Data Vital Signs Vital Signs Date Time Temp Pulse Resp B/P (MAP) Pulse Ox O2 Delivery O2 Flow Rate FiO2 01/26/17 04:35 97.9 83 18 144/86 (105) 98 Room Air 97.9 Lab Values Laboratory Tests Test 01/26/17 03:49 01/26/17 04:30 01/26/17 04:39 POC Urine HCG, Qualitative Hcg negative (Negative) Urine Collection Type Void Urine Color Yellow Urine Clarity Clear Urine pH 5.0 Urine Specific Henderson >=1.030 Urine Protein Negative mg/dL (NEG-TRACE) Urine Glucose (UA) >=1000 mg/dL (NEG) Urine Ketones (Stick) Negative mg/dL (NEG) Urine Blood Negative (NEG) Urine Nitrite Negative (NEG) Urine Bilirubin Negative (NEG) Urine Urobilinogen Dipstick 0.2 mg/dL (0.2 mg/dL) Urine Leukocyte Esterase Trace (NEG) Urine RBC Occ /HPF (0-2) Urine WBC 5-10 /HPF (0-4) Urine Squamous Epithelial Cells Many /LPF Urine Bacteria Few /HPF (0-FEW) Glucose (Fingerstick) 451 mg/dL (70-99) H EKG EKG [] Radiology/Procedures Radiology/Procedures [] Course & Med Decision Making Course & Med Decision Making Pertinent Labs and Imaging studies reviewed. (See chart for details) [] Dragon Disclaimer Dragon Disclaimer This electronic medical record was generated, in whole or in part, using a voice recognition dictation system. Departure Departure Impression: Primary Impression: Hyperglycemia Additional Impressions: Perineal irritation in female Drug allergy Disposition: 01 HOME, SELF-CARE Condition: IMPROVED Referrals: UNKNOWN PCP NAME (PCP) Patient Instructions: Drug Allergy, Hyperglycemia, Yeast Infection of the Skin , [id number] Scripts Fluconazole (DIFLUCAN) 100 Mg Tablet 100 MG PO DAILY, #5 TAB Prov: MITCHELL HEIN MD 01/26/17 Problem Qualifiers MITCHELL HEIN MD Jan 26, 2017 05:21
[2017-01-26 05:26] LABS: SQUAMOUS EPITHELIAL CELL,UR MANY /LPF
[2017-01-26 05:27] LABS: BACTERIA,URINE FEW /HPF (0-FEW); RBC,URINE OCC /HPF (0-2)
[2017-01-26] MEDS ORDERED: INSULIN REGULAR 100 UNIT/ML 10ML VIAL. IV ONE (05:30)
[2017-01-26] MEDS ORDERED: FLUCONAZOLE 100 MG TABLET. PO ONE (05:30)
[2017-01-26] MEDS ORDERED: IV NORMAL SALINE 1000ML BAG 1,000 ML IV ONE (05:30)
[2017-01-26] MEDS ORDERED: FLUC100T7 PO (05:33)
[2017-01-26 05:41] LABS: CALCIUM 8.6 mg/dL (8.5-10.1); CREATININE 0.9 mg/dL (0.6-1.0); POTASSIUM 3.8 mmol/L (3.5-5.1)
[2017-01-26 06:31] VITALS: BP 137/67
== END 2017-01-26 06:37 | disposition home or self-care (01) ==
LOC: ER 04:12
DX: E11.65 Type 2 diabetes mellitus with hyperglycemia (principal); N90.89 Other specified noninflammatory disorders of vulva and perineum; T50.905A Adverse effect of unspecified drugs, medicaments and biological substances, initial encounter; Z79.4 Long term (current) use of insulin; E78.00 Pure hypercholesterolemia, unspecified; F41.9 Anxiety disorder, unspecified; I10 Essential (primary) hypertension; Z91.013 Allergy to seafood; Y92.89 Other specified places as the place of occurrence of the external cause
CPT/HCPCS: 36415; 80048; 81001; 81025; 82962; 87086; 96361; 96374; 99284; J1815; J7030

== ENCOUNTER 2017-02-20 16:18 | Emergency (ER) | payer OTHER ==
[~2017-02-20] VITALS: Ht 175.3 cm; Wt 99.8 kg
[~2017-02-20 16:18] MED LIST changes: +FLUC100T7 PO
[2017-02-20 17:09] VITALS: BP 117/72
[2017-02-20] MEDS ORDERED: ERYT1OIN6 OP (17:43)
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
[2017-02-20] MEDS ORDERED: FLUORESCEIN OPHTH TEST STRIP. OS ONE (17:45)
[2017-02-20] MEDS ORDERED: TETRACAINE 0.5% OPHTH SOLUTION 4ML BOTTLE. OS ONE (17:45)
== END 2017-02-20 18:03 | disposition home or self-care (01) ==
LOC: ER 16:18
DX: H57.11 Ocular pain, right eye (principal); I10 Essential (primary) hypertension; E11.9 Type 2 diabetes mellitus without complications; Z91.013 Allergy to seafood
CPT/HCPCS: 99283

== ENCOUNTER 2017-03-24 12:58 | Emergency (ER) | payer OTHER ==
[~2017-03-24] VITALS: Ht 172.7 cm; Wt 101.6 kg
[~2017-03-24 12:58] MED LIST changes: +ERYT1OIN6 OP
[2017-03-24 13:35] LABS: BASO # 0.1 x10^3/uL (0.0-0.2); BASO % 1 % (0-3); EOS % 2 % (0-3); HEMATOCRIT 41.7 % (36.0-47.0); HEMOGLOBIN 13.7 g/dL (12.0-15.5); LYMPH # 2.3 x10^3/uL (1.0-4.8); LYMPH % 28 % (24-48); MEAN CORPUSCULAR HEMOGLOBIN 28 pg (25-35); MEAN CORPUSCULAR HGB CONC 33 g/dL (31-37); MEAN CORPUSCULAR VOLUME 85 fL (79-100); MONO % 5 % (0-9); NEUT % 64 % (31-73); PLATELET COUNT 167 x10^3/uL (140-400); RED BLOOD COUNT 4.92 x10^6/uL (3.50-5.40); RED CELL DISTRIBUTION WIDTH 14.8 % (11.5-14.5); WHITE BLOOD COUNT 8.4 x10^3/uL (4.0-11.0)
[2017-03-24 13:42] LABS: CALCIUM 9.2 mg/dL (8.5-10.1); CREATININE 0.9 mg/dL (0.6-1.0); POTASSIUM 3.9 mmol/L (3.5-5.1)
[2017-03-24 13:47] LABS: ALBUMIN 3.5 g/dL (3.4-5.0); ALBUMIN/GLOBULIN RATIO 0.8 (1.0-1.7); TOTAL BILIRUBIN 0.4 mg/dL (0.2-1.0); TOTAL PROTEIN 7.7 g/dL (6.4-8.2)
[2017-03-24] MEDS ORDERED: MORPHINE SULFATE 4 MG/ML DISP.SYRIN. IV ONE (14:00)
[2017-03-24] MEDS ORDERED: ONDANSETRON PF 4 MG/2 ML VIAL. IV ONE ×2 (14:00→16:15)
[2017-03-24] MEDS ORDERED: MORPHINE SULFATE 10 MG/ML VIAL. IV ONE (16:15)
[2017-03-24] MEDS ORDERED: CONTRAST GIVEN MC PRN (17:30)
[2017-03-24] MEDS ORDERED: IOHEXOL 300 MG/ML 75 ML VIAL IV ONE (17:30)
--- NOTE | 2017-03-24 17:58 | RAD ---
CT abdomen and pelvis with contrast HISTORY: Nausea, vomiting, diarrhea, abdominal pain. TECHNIQUE: Helical CT imaging of the abdomen and pelvis with 75 mL Isovue-370 intravenous contrast. COMPARISON: CT abdomen and pelvis July 12, 2016. Abdomen findings: T11 vertebral lucent lesion is stable likely a small hemangioma. Lung bases unremarkable. Cholecystectomy. Splenomegaly the spleen measures 14.5 cm craniocaudal by 15.5 cm AP by 7.0 cm transverse. There may be hepatomegaly right hepatic lobe has a craniocaudal length of 25 cm. Mild prominent amrit hepatis lymph nodes are stable. Pancreas, adrenal glands and left kidney unremarkable. Right renal lower pole scarring. Appendix is negative. No obstruction or inflammatory changes in GI tract. Para-aortic retroperitoneal lymph nodes are subcentimeter in size largest measuring 7 mm short axis diameter. No abdominal fluid. Pelvis findings: Intrauterine device has been placed which is positioned obliquely within the central uterus with the arms of the device angled anteroposterior rather than transversely at the uterine horns. Calcified uterine fibroids again demonstrated. Indistinct hypodensities of the ovaries which appear to be enlarged could be due to follicles or cysts. Bladder, rectum and bones are unremarkable. No pelvic fluid or adenopathy. IMPRESSION: 1. No acute process in the abdomen. The appendix is negative. 2. Uterine fibroids. Atypical position of the intrauterine device obliquely within the uterus. Bilateral ovaries are prominent with indistinct hypodensities which could be follicles or cysts. Uterine fibroids again demonstrated. 3. Hepatosplenomegaly. Exposure: One or more of the following individualized dose reduction techniques were utilized for this examination: 1. Automated exposure control 2. Adjustment of the mA and/or kV according to patient size 3. Use of iterative reconstruction technique Electronically signed by: Jamie Montaño MD (03/24/2017 5:55 PM) [facility]
[2017-03-24 18:25] VITALS: BP 123/71
--- NOTE | 2017-03-24 18:31 | PHYS DOC ---
Past Medical History Past Medical History: Anxiety, Depression, Diabetes-Type II, Hypertension, Other Additional Past Medical Histor: fibroid tumors Past Surgical History: Cholecystectomy, Other Additional Past Surgical Histo: carpal tunnel, R elbow,D&C Additional Information: 0.5 PPD Alcohol Use: None Drug Use: None Adult General Chief Complaint Chief Complaint: ABDOMINAL PAIN HPI HPI Patient is a 41 year old female history of chronic pelvic pain, recent fibroid ablation an IUD placement 1 month ago presents with left lower quadrant/pelvic pain starting 3 days ago. Pain is described as persistent, sharp, worse with palpation and movement. It is currently rated as moderate. Patient is unable to find position of comfort. Denies urinary frequency urgency, hematuria or vaginal bleeding. No flank pain, nausea vomiting, fever chills or sweats. No other acute symptoms or complaints. Review of Systems Review of Systems Review symptoms as per history of present illness. All other review symptoms are negative. Current Medications Current Medications Current Medications Medications (Trade) Dose Ordered Sig/Dominique Start Time Stop Time Status Last Admin Dose Admin Info (Do NOT chart on this entry -- for MONITORING) 1 each PRN DAILY PRN 03/24/17 17:30 03/26/17 17:29 Iohexol (Omnipaque 300 Mg/ml) 75 ml 1X ONCE 03/24/17 17:30 03/24/17 17:31 DC 03/24/17 17:32 75 ML Morphine Sulfate 5 mg 1X ONCE 03/24/17 16:15 03/24/17 16:44 DC 03/24/17 16:22 5 MG Ondansetron HCl (Zofran) 4 mg 1X ONCE 03/24/17 16:15 03/24/17 16:44 DC 03/24/17 16:23 4 MG Allergies Allergies Allergies Coded Allergies Type Severity Reaction Last Updated Verified shrimp Allergy Intermediate 11/26/16 Yes Physical Exam Physical Exam Constitutional: Well developed, well nourished, no acute distress, non-toxic appearance. [] HENT: Normocephalic, atraumatic, bilateral external ears normal, oropharynx moist, no oral exudates, nose normal. [] Eyes: PERRLA, EOMI, conjunctiva normal, no discharge. [] Neck: Normal range of motion, no tenderness, supple, no stridor. [] Cardiovascular:Heart rate regular rhythm, no murmur [] Lungs & Thorax: Bilateral breath sounds clear to auscultation [] Abdomen: Bowel sounds normal, soft, left lower quadrant pain, tenderness.. [] Skin: Warm, dry, no erythema, no rash. [] Back: No tenderness, no CVA tenderness. [] Extremities: No tenderness, no cyanosis, no clubbing, ROM intact, no edema. [] Neurologic: Alert and oriented X 3, normal motor function, normal sensory function, no focal deficits noted. [] Psychologic: Affect normal, judgement normal, mood normal. [] Current Patient Data Vital Signs Vital Signs Date Time Temp Pulse Resp B/P (MAP) Pulse Ox O2 Delivery O2 Flow Rate FiO2 03/24/17 16:52 16 95 Room Air 03/24/17 14:56 76 109/54 (72) 03/24/17 13:17 97.4 97.4 Lab Values Laboratory Tests Test 03/24/17 13:24 03/24/17 13:28 White Blood Count 8.4 x10^3/uL (4.0-11.0) Red Blood Count 4.92 x10^6/uL (3.50-5.40) Hemoglobin 13.7 g/dL (12.0-15.5) Hematocrit 41.7 % (36.0-47.0) Mean Corpuscular Volume 85 fL (79-100) Mean Corpuscular Hemoglobin 28 pg (25-35) Mean Corpuscular Hemoglobin Concent 33 g/dL (31-37) Red Cell Distribution Width 14.8 % (11.5-14.5) H Platelet Count 167 x10^3/uL (140-400) Neutrophils (%) (Auto) 64 % (31-73) Lymphocytes (%) (Auto) 28 % (24-48) Monocytes (%) (Auto) 5 % (0-9) Eosinophils (%) (Auto) 2 % (0-3) Basophils (%) (Auto) 1 % (0-3) Neutrophils # (Auto) 5.4 x10^3uL (1.8-7.7) Lymphocytes # (Auto) 2.3 x10^3/uL (1.0-4.8) Monocytes # (Auto) 0.4 x10^3/uL (0.0-1.1) Eosinophils # (Auto) 0.2 x10^3/uL (0.0-0.7) Basophils # (Auto) 0.1 x10^3/uL (0.0-0.2) Sodium Level 135 mmol/L (136-145) L Potassium Level 3.9 mmol/L (3.5-5.1) Chloride Level 100 mmol/L (98-107) Carbon Dioxide Level 26 mmol/L (21-32) Anion Gap 9 (6-14) Blood Urea Nitrogen 9 mg/dL (7-20) Creatinine 0.9 mg/dL (0.6-1.0) Estimated GFR (Cockcroft-Gault) 69.0 BUN/Creatinine Ratio 10 (6-20) Glucose Level 409 mg/dL (70-99) H Calcium Level 9.2 mg/dL (8.5-10.1) Total Bilirubin 0.4 mg/dL (0.2-1.0) Aspartate Amino Transferase (AST) 46 U/L (15-37) H Alanine Aminotransferase (ALT) 53 U/L (14-59) Alkaline Phosphatase 103 U/L (46-116) Total Protein 7.7 g/dL (6.4-8.2) Albumin 3.5 g/dL (3.4-5.0) Albumin/Globulin Ratio 0.8 (1.0-1.7) L Lipase 209 U/L (73-393) POC Urine HCG, Qualitative Hcg negative (Negative) Laboratory Tests 03/24/17 13:24 Laboratory Tests 03/24/17 13:24 EKG EKG [] Radiology/Procedures Radiology/Procedures [CT abdomen and pelvis: Pelvic fibroids, IUD in abnormal position located within the uterus. No other acute findings per radiology report.] Course & Med Decision Making Course & Med Decision Making Pertinent Labs and Imaging studies reviewed. (See chart for details) [] Dragon Disclaimer Dragon Disclaimer This electronic medical record was generated, in whole or in part, using a voice recognition dictation system. Departure Departure Impression: Primary Impression: Pelvic pain in female Disposition: 01 HOME, SELF-CARE Condition: GOOD Patient Instructions: Pelvic Pain, Female, [id number] Additional Instructions: You were evaluated emergency department for lower abdominal pain. Lab work and imaging studies were performed. The cause of your symptoms has not been dated identified. Imaging studies show urine fibroids and an abnormally positioned IUD in the uterus, may be contributing to your symptoms.. Take ibuprofen for pain and hydrocodone as needed for additional relief. Follow-up with your BED WORKER for reevaluation in the next 3-5 days. Return to the ED if you develop new or worsening symptoms. GIN CASE DO Mar 24, 2017 18:31
== END 2017-03-24 18:32 | disposition home or self-care (01) ==
LOC: ER 12:58
DX: R10.2 Pelvic and perineal pain (principal); R10.32 Left lower quadrant pain; F41.9 Anxiety disorder, unspecified; F32.9 Major depressive disorder, single episode, unspecified; E11.9 Type 2 diabetes mellitus without complications; I10 Essential (primary) hypertension; G89.29 Other chronic pain; F17.200 Nicotine dependence, unspecified, uncomplicated; Z90.49 Acquired absence of other specified parts of digestive tract; Z91.013 Allergy to seafood
CPT/HCPCS: 36415; 74177; 80053; 81025; 83690; 85025; 96374; 96375; 96376; 99285; J2270; J2405; Q9967

== ENCOUNTER 2017-03-27 21:40 | Emergency (ER) | payer OTHER ==
[~2017-03-27] VITALS: Ht 172.7 cm; Wt 101.2 kg
--- NOTE | 2017-03-27 22:24 | PHYS DOC ---
Past Medical History Past Medical History: Anxiety, Depression, Diabetes-Type II, Hypertension, Other Additional Past Medical Histor: fibroid tumors Past Surgical History: Cholecystectomy, Other Additional Past Surgical Histo: carpal tunnel, R elbow,D&C Alcohol Use: None Drug Use: None Adult General Chief Complaint Chief Complaint: ABDOMINAL PAIN HPI HPI Patient is a 41 year old female with a history of uterine fibroids presents the ED complaining of pelvic pain 1 week. Patient states that she was seen in the ED 3 days ago for same symptoms. 1 month ago patient had uterine fibroid ablation and IUD placement. CT imaging on last visit showed no acute changes and Intrauterine device has been placed which is positioned obliquely within the central uterus with the arms of the device angled anteroposterior rather than transversely at the uterine horns. Patient complaining of worsening pelvic pain and vaginal bleeding since this morning. Denies chest pain, shortness of breath, dizziness, weakness, syncope, fever, rectal bleeding or headache. Review of Systems Review of Systems Constitutional: Denies fever or chills [] Eyes: Denies change in visual acuity, redness, or eye pain [] HENT: Denies nasal congestion or sore throat [] Respiratory: Denies cough or shortness of breath [] Cardiovascular: No additional information not addressed in HPI [] GI: Denies abdominal pain, nausea, vomiting, bloody stools or diarrhea [] : Complains of pelvic pain. Denies dysuria or hematuria [] Musculoskeletal: Denies back pain or joint pain [] Integument: Denies rash or skin lesions [] Neurologic: Denies headache, focal weakness or sensory changes [] Endocrine: Denies polyuria or polydipsia [] Current Medications Current Medications Current Medications Medications (Trade) Dose Ordered Sig/[facility] Start Time Stop Time Status Last Admin Dose Admin Insulin Human Regular (NovoLIN R VIAL) 5 unit 1X ONCE 03/27/17 23:45 03/27/17 23:47 DC 03/27/17 23:45 5 UNIT Morphine Sulfate 4 mg 1X ONCE 03/27/17 22:30 03/27/17 22:31 DC 03/27/17 23:11 4 MG Ondansetron HCl (Zofran) 4 mg 1X ONCE 03/28/17 00:15 03/28/17 00:16 DC 03/28/17 00:31 4 MG Sodium Chloride 1,000 ml @ 1,000 mls/hr 1X ONCE 03/27/17 23:45 03/28/17 00:44 DC 03/27/17 23:49 1,000 MLS/HR Allergies Allergies Allergies Coded Allergies Type Severity Reaction Last Updated Verified shrimp Allergy Intermediate 11/26/16 Yes Physical Exam Physical Exam Constitutional: Well developed, well nourished, no acute distress, non-toxic appearance. [] HENT: Normocephalic, atraumatic, bilateral external ears normal, oropharynx moist, no oral exudates, nose normal. [] Eyes: PERRLA, EOMI, conjunctiva normal, no discharge. [] Neck: Normal range of motion, no tenderness, supple, no stridor. [] Cardiovascular:Heart rate regular rhythm, no murmur [] Lungs & Thorax: Bilateral breath sounds clear to auscultation [] Abdomen: Bowel sounds normal, soft, MILD SUPRAPUBIC TENDERNESS, no masses, no pulsatile masses. EXAM: IUD in place. No vaginal discharge or adnexal tenderness, [] Skin: Warm, dry, no erythema, no rash. [] Back: No tenderness, no CVA tenderness. [] Extremities: No tenderness, no cyanosis, no clubbing, ROM intact, no edema. [] Neurologic: Alert and oriented X 3, normal motor function, normal sensory function, no focal deficits noted. [] Psychologic: Affect normal, judgement normal, mood normal. [] Current Patient Data Vital Signs Vital Signs Date Time Temp Pulse Resp B/P (MAP) Pulse Ox O2 Delivery O2 Flow Rate FiO2 03/28/17 00:30 74 18 123/70 (87) 97 Room Air 03/27/17 22:15 98.5 98.5 Lab Values Laboratory Tests Test 03/27/17 21:45 03/27/17 22:50 03/27/17 23:07 03/28/17 00:44 Urine Collection Type Unknown Urine Color Yellow Urine Clarity Clear Urine pH 5.5 Urine Specific [place] >=1.030 Urine Protein Negative mg/dL (NEG-TRACE) Urine Glucose (UA) >=1000 mg/dL (NEG) Urine Ketones (Stick) Negative mg/dL (NEG) Urine Blood Large (NEG) Urine Nitrite Negative (NEG) Urine Bilirubin Negative (NEG) Urine Urobilinogen Dipstick 0.2 mg/dL (0.2 mg/dL) Urine Leukocyte Esterase Negative (NEG) Urine RBC 1-2 /HPF (0-2) Urine WBC Occ /HPF (0-4) Urine Squamous Epithelial Cells Few /LPF Urine Bacteria Few /HPF (0-FEW) Urine Yeast Present /HPF White Blood Count 8.8 x10^3/uL (4.0-11.0) Red Blood Count 5.13 x10^6/uL (3.50-5.40) Hemoglobin 14.5 g/dL (12.0-15.5) Hematocrit 43.4 % (36.0-47.0) Mean Corpuscular Volume 85 fL (79-100) Mean Corpuscular Hemoglobin 28 pg (25-35) Mean Corpuscular Hemoglobin Concent 33 g/dL (31-37) Red Cell Distribution Width 14.7 % (11.5-14.5) H Platelet Count 188 x10^3/uL (140-400) Neutrophils (%) (Auto) 58 % (31-73) Lymphocytes (%) (Auto) 32 % (24-48) Monocytes (%) (Auto) 6 % (0-9) Eosinophils (%) (Auto) 2 % (0-3) Basophils (%) (Auto) 1 % (0-3) Neutrophils # (Auto) 5.2 x10^3uL (1.8-7.7) Lymphocytes # (Auto) 2.8 x10^3/uL (1.0-4.8) Monocytes # (Auto) 0.6 x10^3/uL (0.0-1.1) Eosinophils # (Auto) 0.2 x10^3/uL (0.0-0.7) Basophils # (Auto) 0.1 x10^3/uL (0.0-0.2) Sodium Level 136 mmol/L (136-145) Potassium Level 3.9 mmol/L (3.5-5.1) Chloride Level 99 mmol/L (98-107) Carbon Dioxide Level 28 mmol/L (21-32) Anion Gap 9 (6-14) Blood Urea Nitrogen 9 mg/dL (7-20) Creatinine 1.0 mg/dL (0.6-1.0) Estimated GFR (Cockcroft-Gault) 61.1 BUN/Creatinine Ratio 9 (6-20) Glucose Level 457 mg/dL (70-99) H Calcium Level 9.5 mg/dL (8.5-10.1) Total Bilirubin 0.4 mg/dL (0.2-1.0) Aspartate Amino Transferase (AST) 41 U/L (15-37) H Alanine Aminotransferase (ALT) 54 U/L (14-59) Alkaline Phosphatase 111 U/L (46-116) Total Protein 7.9 g/dL (6.4-8.2) Albumin 3.6 g/dL (3.4-5.0) Albumin/Globulin Ratio 0.8 (1.0-1.7) L POC Urine HCG, Qualitative Hcg negative (Negative) Glucose (Fingerstick) 292 mg/dL (70-99) H Laboratory Tests 03/27/17 22:50 Laboratory Tests 03/27/17 22:50 EKG EKG [] Radiology/Procedures Radiology/Procedures [] Course & Med Decision Making Course & Med Decision Making Pertinent Labs and Imaging studies reviewed. (See chart for details) []Discussed case with on-call PLUMBER, Dr. Cardozo. States to remove IUD for patient comfort. IUD Removed. No complications. States he will follow up with patient tomorrow in office and further evaluate patient and discuss further treatment options. Patient stable for discharge. Patient feeling much better after IUD removal. Upon Reexamination, abdomen is soft nontender nondistended. No peritoneal signs. Discussed the importance of follow-up. Provided contact information/education. Discussed reasons to return to the ED. Patient understands and agrees with plan. Patient found to have a blood sugar of 457. Patient states she has not taken her insulin this evening. Discussed case with attending physician. WIll give 1 L of fluids and 5 UNITS of insulin to begin initiating treatment. Patient states she has at home medications to manage her diabetes and will take her dose when she gets home. Discussed the importance of treatment and potential consequences if patient does not treat/monitor her blood sugar. Patient understands and agrees with plan. Family at bedside. Dragon Disclaimer Dragon Disclaimer This electronic medical record was generated, in whole or in part, using a voice recognition dictation system. Departure Departure Impression: Primary Impression: Pelvic pain Additional Impression: Hyperglycemia Disposition: HOME, SELF-CARE Condition: IMPROVED Referrals: UNKNOWN PCP NAME (PCP) KEANU CARDOZO MD Patient Instructions: Pelvic Pain, Female Scripts Hydrocodone/Apap 5-325 (NORCO 5-325 TABLET) 1 Each Tablet 1 TAB PO BID, #6 TAB Prov: DALTON JAMISON 03/28/17 Problem Qualifiers DALTON JAMISON Mar 27, 2017 22:24
[2017-03-27] MEDS ORDERED: ONDANSETRON PF 4 MG/2 ML VIAL. IV ONE (22:30)
[2017-03-27] MEDS ORDERED: MORPHINE SULFATE 4 MG/ML DISP.SYRIN. IV ONE (22:30)
[2017-03-27 22:58] LABS: BASO # 0.1 x10^3/uL (0.0-0.2); BASO % 1 % (0-3); EOS % 2 % (0-3); HEMATOCRIT 43.4 % (36.0-47.0); HEMOGLOBIN 14.5 g/dL (12.0-15.5); LYMPH # 2.8 x10^3/uL (1.0-4.8); LYMPH % 32 % (24-48); MEAN CORPUSCULAR HEMOGLOBIN 28 pg (25-35); MEAN CORPUSCULAR HGB CONC 33 g/dL (31-37); MEAN CORPUSCULAR VOLUME 85 fL (79-100); MONO % 6 % (0-9); NEUT % 58 % (31-73); PLATELET COUNT 188 x10^3/uL (140-400); RED BLOOD COUNT 5.13 x10^6/uL (3.50-5.40); RED CELL DISTRIBUTION WIDTH 14.7 % (11.5-14.5); WHITE BLOOD COUNT 8.8 x10^3/uL (4.0-11.0)
[2017-03-27 23:08] LABS: CALCIUM 9.5 mg/dL (8.5-10.1); GFR 61.1; POTASSIUM 3.9 mmol/L (3.5-5.1)
[2017-03-27 23:14] LABS: BILIRUBIN,URINE NEGATIVE (NEG); GLUCOSE,URINE >=1000 mg/dL (NEG); NITRITE,URINE NEGATIVE (NEG); PH,URINE 5.5; PROTEIN,URINE NEGATIVE (NEG-TRACE); UROBILINOGEN,URINE 0.2 mg/dL (0.2 mg/dL)
[2017-03-27 23:14] LABS: ALBUMIN 3.6 g/dL (3.4-5.0); ALBUMIN/GLOBULIN RATIO 0.8 (1.0-1.7); TOTAL BILIRUBIN 0.4 mg/dL (0.2-1.0); TOTAL PROTEIN 7.9 g/dL (6.4-8.2)
[2017-03-27 23:25] LABS: BACTERIA,URINE FEW /HPF (0-FEW); SQUAMOUS EPITHELIAL CELL,UR FEW /LPF; WBC,URINE OCC /HPF (0-4); YEAST,URINE PRESENT /HPF
[2017-03-27] MEDS ORDERED: IV NORMAL SALINE 1000ML BAG 1,000 ML IV ONE ×2 (23:45)
[2017-03-27] MEDS ORDERED: INSULIN REGULAR 100 UNIT/ML 10ML VIAL. IV ONE ×2 (23:45)
[2017-03-28] MEDS ORDERED: HYDR-971 PO (00:09)
[2017-03-28] MEDS ORDERED: ONDANSETRON PF 4 MG/2 ML VIAL. IV ONE (00:15)
[2017-03-28 00:30] VITALS: BP 123/70
== END 2017-03-28 00:58 | disposition home or self-care (01) ==
LOC: ER 21:40
DX: R10.2 Pelvic and perineal pain (principal); E11.65 Type 2 diabetes mellitus with hyperglycemia; N93.9 Abnormal uterine and vaginal bleeding, unspecified; I10 Essential (primary) hypertension; F41.9 Anxiety disorder, unspecified; F32.9 Major depressive disorder, single episode, unspecified; Z90.49 Acquired absence of other specified parts of digestive tract; Z91.013 Allergy to seafood
CPT/HCPCS: 36415; 80053; 81001; 81025; 82962; 85025; 96361; 96374; 96375; 96376; 99284; J1815; J2270; J2405; J7030

== ENCOUNTER 2017-06-10 19:52 | Emergency (ER) | payer OTHER ==
[~2017-06-10] VITALS: Ht 172.7 cm; Wt 104.3 kg
[~2017-06-10 19:52] MED LIST changes: +NAPR-683 PO; -NAPR500T PO
[2017-06-10] MEDS ORDERED: MAGNESIUM CITRATE 296 ML SOLUTION. PO ONE (20:30)
[2017-06-10] MEDS ORDERED: AMOX500T PO (20:59)
[2017-06-10] MEDS ORDERED: FLUC150T PO (20:59)
--- NOTE | 2017-06-10 20:59 | PHYS DOC ---
Past Medical History Past Medical History: Anxiety, Depression, Diabetes-Type II, Hypertension, Other Additional Past Medical Histor: fibroid tumors Past Surgical History: Cholecystectomy, Other Additional Past Surgical Histo: carpal tunnel, R elbow,D&C Alcohol Use: None Drug Use: None Adult General Chief Complaint Chief Complaint: MULTIPLE COMPLAINTS [facility] HPI Patient is a 41 year old female with a history of hypertension, diabetes type 2 , anxiety, who presents today complaining of subjective fevers, sore throat, bilateral ear pain for 4 days and constipation for 2 days. Patient denies any nausea vomiting. Denies any diarrhea. She states she is currently trying milk of magnesium for her constipation. Review of Systems Review of Systems Constitutional: Reports fever Eyes: Denies change in visual acuity, redness, or eye pain [] HENT: Reports sore throat and bilateral ear pain. Denies nasal congestion Respiratory: Denies cough or shortness of breath [] Cardiovascular: No additional information not addressed in HPI [] GI: Reports constipation, denies nausea, vomiting, bloody stools or diarrhea [] : Denies dysuria or hematuria [] Musculoskeletal: Denies back pain or joint pain [] Integument: Denies rash or skin lesions [] Neurologic: Denies headache, focal weakness or sensory changes [] All other systems were reviewed and found to be within normal limits, except as documented in this note. Current Medications Current Medications Current Medications Medications (Trade) Dose Ordered Sig/Dominique Start Time Stop Time Status Last Admin Dose Admin Magnesium Citrate (Citroma) 296 ml 1X ONCE 06/10/17 20:30 06/10/17 20:31 DC 06/10/17 20:38 296 ML Allergies Allergies Allergies Coded Allergies Type Severity Reaction Last Updated Verified shrimp Allergy Intermediate 11/26/16 Yes Physical Exam Physical Exam Constitutional: Well developed, well nourished, no acute distress, non-toxic appearance. [] HENT: Normocephalic, atraumatic, bilateral external ears normal, oropharynx moist, no oral exudates, nose normal. [] +2 tonsils with mild erythema and trace exudate bilaterally. +2 anterior cervical adenopathy. Eyes: PERRLA, EOMI, conjunctiva normal, no discharge. [] Neck: Normal range of motion, no tenderness, supple, no stridor. [] Cardiovascular:Heart rate regular rhythm, no murmur [] Lungs & Thorax: Bilateral breath sounds clear to auscultation [] Abdomen: Bowel sounds normal, soft, no tenderness, no masses, no pulsatile masses. [] Skin: Warm, dry, no erythema, no rash. [] Back: No tenderness, no CVA tenderness. [] Extremities: No tenderness, no cyanosis, no clubbing, ROM intact, no edema. [] Neurologic: Alert and oriented X 3, normal motor function, normal sensory function, no focal deficits noted. [] Psychologic: Affect normal, judgement normal, mood normal. [] Current Patient Data Vital Signs Vital Signs Date Time Temp Pulse Resp B/P (MAP) Pulse Ox O2 Delivery O2 Flow Rate FiO2 06/10/17 20:00 100.2 115 14 98 Room Air 100.2 Lab Values Laboratory Tests Test 06/10/17 20:05 POC Urine HCG, Qualitative Hcg negative (Negative) EKG EKG [] Radiology/Procedures Radiology/Procedures [] Course & Med Decision Making Course & Med Decision Making Pertinent Labs and Imaging studies reviewed. (See chart for details) Patient is in the ED with sore throat fever bilateral ear pain and constipation. Positive rapid strep. Discharged with amoxicillin. Discharged with magnesium citrate for constipation and encouraged to use MiraLAX. We talked about increasing dietary fiber intake as well as water intake and following up with the primary care doctor in one week. Kerri Disclaimer Kerri Disclaimer This electronic medical record was generated, in whole or in part, using a voice recognition dictation system. Departure Departure Impression: Primary Impression: Fever Additional Impressions: Constipation Acute streptococcal pharyngitis Otalgia of both ears Disposition: HOME, SELF-CARE Condition: STABLE Referrals: NO PCP (PCP) followup with your doctor in one week Patient Instructions: Constipation, Adult, Fever, Adult, [id number], Otalgia- Brief, Strep Throat Additional Instructions: You seen for pain, strep infection, fever, and constipation. Take the prescribed antibiotics until completed Increase your dietary as well as water intake. Take magnesium citrate for constipation. Use MiraLAX it will help prevent constipation Follow-up with your primary care doctor in 1-2 weeks. Scripts Amoxicillin (AMOXICILLIN) 500 Mg Tablet 1 TAB PO TID, #30 TAB Prov: MUTUNGA,CARINA PROFESSOR OF PSYCHOLOGY 06/10/17 Fluconazole (DIFLUCAN) 150 Mg Tablet 1 TAB PO ONCE, #1 TAB 1 Refill Prov: LESLYCARINA SHAHN 06/10/17 Problem Qualifiers Primary Impression: Fever Fever type: unspecified Qualified Codes: R50.9 - Fever, unspecified Additional Impressions: Constipation Constipation type: unspecified constipation type Qualified Codes: K59.00 - Constipation, unspecified CARINA GRACE PROFESSOR OF PSYCHOLOGY Jun 10, 2017 20:59
[2017-06-11 08:52] LABS: NEGATIVE OBC STREP NEG; POSITIVE OBC STREP POS
== END 2017-06-10 21:09 | disposition home or self-care (01) ==
LOC: ER 19:52
DX: J02.0 Streptococcal pharyngitis (principal); H92.03 Otalgia, bilateral; K59.00 Constipation, unspecified; R50.9 Fever, unspecified; E11.9 Type 2 diabetes mellitus without complications; I10 Essential (primary) hypertension; Z90.49 Acquired absence of other specified parts of digestive tract; Z91.013 Allergy to seafood
CPT/HCPCS: 81025; 87880; 99283

== ENCOUNTER 2017-07-16 22:20 | Emergency (ER) | payer SELFPAY, OTHER ==
[2017-07-16 22:39] LABS: URINE HCG POC HCG NEGATIVE (Negative)
[2017-07-16 23:01] LABS: BILIRUBIN,URINE NEGATIVE (NEG); CLARITY,URINE CLEAR; COLOR,URINE YELLOW; GLUCOSE,URINE >=1000 mg/dL (NEG); NITRITE,URINE NEGATIVE (NEG); PH,URINE 5.5; PROTEIN,URINE NEGATIVE (NEG-TRACE); UROBILINOGEN,URINE 0.2 mg/dL (0.2 mg/dL)
[2017-07-16 23:08] LABS: BACTERIA,URINE FEW /HPF (0-FEW); RBC,URINE OCC /HPF (0-2); SQUAMOUS EPITHELIAL CELL,UR FEW /LPF; WBC,URINE 0 /HPF (0-4); YEAST,URINE PRESENT /HPF
[2017-07-16] MEDS: diazePAM 5 MG TABLET PO (23:21)
[2017-07-16] MEDS: oxyCODONE/APAP 5/325 1 TAB TABLET PO (23:21)
[2017-07-16] MEDS: KETOROLAC 60 MG/2 ML INJ. IM (23:22)
[2017-07-18 19:16] LABS: CHLAMYDIA PROBE Negative (Negative); GC PROBE Negative (Negative)
== END 2017-07-17 00:05 | disposition home or self-care (01) ==
LOC: ER 22:20
DX: N76.0 Acute vaginitis (principal); B96.89 Other specified bacterial agents as the cause of diseases classified elsewhere; F41.9 Anxiety disorder, unspecified; F32.9 Major depressive disorder, single episode, unspecified; E11.9 Type 2 diabetes mellitus without complications; I10 Essential (primary) hypertension; G89.29 Other chronic pain; Z90.49 Acquired absence of other specified parts of digestive tract; Z91.013 Allergy to seafood
CPT/HCPCS: 81001; 81025; 87491; 87591; 96372; 99284-25; J1885; Q0111

== ENCOUNTER 2017-09-11 11:48 | Emergency (ER) | payer OTHER ==
[2017-09-11 12:54] LABS: BILIRUBIN,URINE NEGATIVE (NEG); CLARITY,URINE CLEAR; GLUCOSE,URINE 100 mg/dL (NEG); NITRITE,URINE NEGATIVE (NEG); PH,URINE 5.5; PROTEIN,URINE 30 mg/dL (NEG-TRACE); UROBILINOGEN,URINE 0.2 mg/dL (0.2 mg/dL)
[2017-09-11 12:56] LABS: COLOR,URINE YELLOW
[2017-09-11 13:00] LABS: BACTERIA,URINE MANY /HPF (0-FEW); SQUAMOUS EPITHELIAL CELL,UR MANY /LPF; WBC,URINE TNTC /HPF (0-4)
[2017-09-11 13:01] LABS: RBC,URINE 20-40 /HPF (0-2)
[2017-09-11 13:10] LABS: ADD MAN DIFF? NO
[2017-09-11 13:12] LABS: BASO # 0.1 x10^3/uL (0.0-0.2); BASO % 1 % (0-3); EOS # 0.2 x10^3/uL (0.0-0.7); EOS % 2 % (0-3); HEMATOCRIT 35.4 % (36.0-47.0); HEMOGLOBIN 11.7 g/dL (12.0-15.5); LYMPH # 1.9 x10^3/uL (1.0-4.8); LYMPH % 26 % (24-48); MEAN CORPUSCULAR HEMOGLOBIN 27 pg (25-35); MEAN CORPUSCULAR HGB CONC 33 g/dL (31-37); MEAN CORPUSCULAR VOLUME 82 fL (79-100); MONO # 0.7 x10^3/uL (0.0-1.1); MONO % 9 % (0-9); NEUT # 4.5 x10^3uL (1.8-7.7); NEUT % 62 % (31-73); PLATELET COUNT 267 x10^3/uL (140-400); RED BLOOD COUNT 4.34 x10^6/uL (3.50-5.40); RED CELL DISTRIBUTION WIDTH 15.1 % (11.5-14.5); WHITE BLOOD COUNT 7.3 x10^3/uL (4.0-11.0)
[2017-09-11 13:19] LABS: ANION GAP 7 (6-14); BLOOD UREA NITROGEN 11 mg/dL (7-20); BUN/CREATININE RATIO 14 (6-20); CALCIUM 9.4 mg/dL (8.5-10.1); CARBON DIOXIDE 28 mmol/L (21-32); CHLORIDE 102 mmol/L (98-107); CREATININE 0.8 mg/dL (0.6-1.0); GLUCOSE 290 mg/dL (70-99); POTASSIUM 4.4 mmol/L (3.5-5.1); SODIUM 137 mmol/L (136-145)
[2017-09-11 13:27] LABS: ALBUMIN 3.1 g/dL (3.4-5.0); ALBUMIN/GLOBULIN RATIO 0.7 (1.0-1.7); ALK PHOS 118 U/L (46-116); ALT (SGPT) 25 U/L (14-59); AST (SGOT) 20 U/L (15-37); TOTAL BILIRUBIN 0.6 mg/dL (0.2-1.0); TOTAL PROTEIN 7.6 g/dL (6.4-8.2)
== END 2017-09-11 14:40 | disposition home or self-care (01) ==
LOC: ER 11:48
DX: N39.0 Urinary tract infection, site not specified (principal); F41.9 Anxiety disorder, unspecified; F32.9 Major depressive disorder, single episode, unspecified; E11.9 Type 2 diabetes mellitus without complications; I10 Essential (primary) hypertension; G89.29 Other chronic pain; I25.2 Old myocardial infarction; Z90.49 Acquired absence of other specified parts of digestive tract; Z91.013 Allergy to seafood
CPT/HCPCS: 36415; 74176; 80053; 81001; 85025; 87086; 99285-25

== ENCOUNTER 2018-04-08 18:51 | Emergency (ER) | payer OTHER ==
[~2018-04-08] VITALS: Ht 172.7 cm; Wt 90.7 kg
[~2018-04-08 18:51] MED LIST changes: +AMOX500T PO; +CLON0.5T11 PO; -CLON0.5T3 PO; +FLUC150T PO; +METR500T PO; +NITR100C63 PO; +TRAZ-85 PO; -TRAZ50TA15 PO
[2018-04-08 19:50] LABS: BASO % 0 % (0-3); EOS # 0.1 x10^3/uL (0.0-0.7); EOS % 2 % (0-3); HEMATOCRIT 41.6 % (36.0-47.0); HEMOGLOBIN 14.3 g/dL (12.0-15.5); LYMPH # 2.5 x10^3/uL (1.0-4.8); LYMPH % 34 % (24-48); MEAN CORPUSCULAR HEMOGLOBIN 29 pg (25-35); MEAN CORPUSCULAR HGB CONC 35 g/dL (31-37); MEAN CORPUSCULAR VOLUME 83 fL (79-100); MONO # 0.5 x10^3/uL (0.0-1.1); MONO % 6 % (0-9); NEUT # 4.2 x10^3uL (1.8-7.7); NEUT % 58 % (31-73); PLATELET COUNT 188 x10^3/uL (140-400); RED BLOOD COUNT 5.01 x10^6/uL (3.50-5.40); RED CELL DISTRIBUTION WIDTH 14.7 % (11.5-14.5); WHITE BLOOD COUNT 7.3 x10^3/uL (4.0-11.0)
--- NOTE | 2018-04-08 19:51 | PHYS DOC ---
Past Medical History Past Medical History: Anxiety, Asthma, Depression, Diabetes-Type II, Hypertension, Other Additional Past Medical Histor: fibroid tumors HI: Chronic abdominal pain Past Surgical History: Cholecystectomy, Hysterectomy, Other Additional Past Surgical Histo: carpal tunnel, R elbow,D&C Alcohol Use: None Drug Use: None Adult General Chief Complaint Chief Complaint: HEADACHE HPI HPI 42-year-old female presents to ER via POV for complaints of cold-like symptoms which started on Tuesday. Patient reports she was seen at [facility] and given Zyrtec as well as started on Flagyl for BV. She reports she had 100.4 fever on Tuesday. She reports she has had sinus pressure, prod cough with green phlegm, bodyaches, and some burning w/urination. Pt reports she has had some lt lower abd pain with intermittent nausea- she denies V/D episodes. She is 1/2 ppd cigarette smoker. She denies CP/palpitations, SOA, swelling, or rash. She reports hx of full hysterectomy. She denies vaginal sxs. She reports hx of asthma and that she has been using her inhaler more freq. this week. She neck pain/stiffness. She reports chronic back pain no acute changes. She reports generalized bodyaches- denying numbness/tingling. Review of Systems Review of Systems Constitutional: Reports fever with generalized bodyaches/fatigue Eyes: Denies change in visual acuity, redness. Reports photosensitivity and eye pain w/lights HENT: Reports sinus pressure, sore throat, bilat. ear pressure Respiratory: Reports prod. cough w/green phlegm- denies SOA Cardiovascular: Denies chest pain or palpitations GI: Denies vomiting, bloody stools or diarrhea. Reports lt side lower abd pain- worse with coughing or repositioning : Denies hematuria. Reports mild burning with urination Musculoskeletal: Reports chronic back pain denies acute changes Integument: Denies rash, swelling or skin lesions [] Neurologic: Denies focal weakness or sensory changes [] Endocrine: Denies polyuria or polydipsia [] All other systems were reviewed and found to be within normal limits, except as documented in this note. Current Medications Current Medications Current Medications Medications (Trade) Dose Ordered Sig/Dominique Start Time Stop Time Status Last Admin Dose Admin Albuterol/ Ipratropium (Duoneb) 3 ml 1X ONCE 04/08/18 20:00 04/08/18 20:01 DC 04/08/18 20:05 3 ML Diphenhydramine HCl (Benadryl) 12.5 mg 1X ONCE 04/08/18 20:00 04/08/18 20:01 DC 04/08/18 20:01 12.5 MG Ketorolac Tromethamine (Toradol 15mg Vial) 15 mg 1X ONCE 04/08/18 20:30 04/08/18 20:31 DC 04/08/18 20:30 15 MG Ondansetron HCl (Zofran) 4 mg 1X ONCE 04/08/18 20:30 04/08/18 20:31 DC 04/08/18 20:30 4 MG Sodium Chloride 1,000 ml @ 1,000 mls/hr 1X ONCE 04/08/18 20:00 04/08/18 20:59 DC 04/08/18 20:00 1,000 MLS/HR Allergies Allergies Allergies Coded Allergies Type Severity Reaction Last Updated Verified shrimp Allergy Intermediate 11/26/16 Yes Physical Exam Physical Exam Constitutional: Well developed, well nourished, no acute distress, non-toxic appearance. Clear speech HENT: Normocephalic, atraumatic, bilateral ears normal, his membranes pink and dry, no oral exudates, bilateral tonsillar swelling without erythema or exudate , nose normal. [] Eyes: 3 mm PERRLA, EOMI-denies pain with movement, no nystagmus, conjunctiva normal, no discharge. [] Neck: Normal range of motion, no tenderness/nuchal rigidity, supple, no gross adenopathy Cardiovascular:Heart rate regular rhythm, no murmur [] Lungs & Thorax: Bilateral breath sounds clear to auscultation upper lobes with diminished sounds in bases. Respirations equal and nonlabored Abdomen: Bowel sounds normal, soft/nondistended/no rigidity, tender to palp lt side abd. diffuse in nature, no masses, no pulsatile masses. [] Skin: Warm, dry, no erythema, no rash. [] Back: Diffuse tenderness in lower back- reports chronic with no acute change, no CVA tenderness. [] Extremities: No tenderness, no cyanosis, no clubbing, ROM intact, no edema. [] Neurologic: Alert and oriented X 3, normal motor function, normal sensory function, no focal deficits noted. Visualized steady gait from room to bathroom unassisted Psychologic: Affect normal, judgement normal, mood normal. [] Current Patient Data Vital Signs Vital Signs Date Time Temp Pulse Resp B/P (MAP) Pulse Ox O2 Delivery O2 Flow Rate FiO2 04/08/18 20:06 99 Room Air 04/08/18 19:05 98.8 144/80 (101) 98.8 Lab Values Laboratory Tests Test 04/08/18 19:19 04/08/18 19:27 White Blood Count 7.3 x10^3/uL (4.0-11.0) Red Blood Count 5.01 x10^6/uL (3.50-5.40) Hemoglobin 14.3 g/dL (12.0-15.5) Hematocrit 41.6 % (36.0-47.0) Mean Corpuscular Volume 83 fL (79-100) Mean Corpuscular Hemoglobin 29 pg (25-35) Mean Corpuscular Hemoglobin Concent 35 g/dL (31-37) Red Cell Distribution Width 14.7 % (11.5-14.5) H Platelet Count 188 x10^3/uL (140-400) Neutrophils (%) (Auto) 58 % (31-73) Lymphocytes (%) (Auto) 34 % (24-48) Monocytes (%) (Auto) 6 % (0-9) Eosinophils (%) (Auto) 2 % (0-3) Basophils (%) (Auto) 0 % (0-3) Neutrophils # (Auto) 4.2 x10^3uL (1.8-7.7) Lymphocytes # (Auto) 2.5 x10^3/uL (1.0-4.8) Monocytes # (Auto) 0.5 x10^3/uL (0.0-1.1) Eosinophils # (Auto) 0.1 x10^3/uL (0.0-0.7) Basophils # (Auto) 0.0 x10^3/uL (0.0-0.2) Sodium Level 137 mmol/L (136-145) Potassium Level 4.0 mmol/L (3.5-5.1) Chloride Level 99 mmol/L (98-107) Carbon Dioxide Level 29 mmol/L (21-32) Anion Gap 9 (6-14) Blood Urea Nitrogen 13 mg/dL (7-20) Creatinine 0.8 mg/dL (0.6-1.0) Estimated GFR (Cockcroft-Gault) 78.7 BUN/Creatinine Ratio 16 (6-20) Glucose Level 376 mg/dL (70-99) H Calcium Level 10.1 mg/dL (8.5-10.1) Total Bilirubin 0.5 mg/dL (0.2-1.0) Aspartate Amino Transferase (AST) 43 U/L (15-37) H Alanine Aminotransferase (ALT) 66 U/L (14-59) H Alkaline Phosphatase 125 U/L (46-116) H Total Protein 8.0 g/dL (6.4-8.2) Albumin 3.7 g/dL (3.4-5.0) Albumin/Globulin Ratio 0.9 (1.0-1.7) L Lipase 185 U/L (73-393) Urine Collection Type Unknown Urine Color Yellow Urine Clarity Clear Urine pH 5.0 Urine Specific [place] >=1.030 Urine Protein Negative mg/dL (NEG-TRACE) Urine Glucose (UA) >=1000 mg/dL (NEG) Urine Ketones (Stick) Negative mg/dL (NEG) Urine Blood Negative (NEG) Urine Nitrite Negative (NEG) Urine Bilirubin Negative (NEG) Urine Urobilinogen Dipstick 0.2 mg/dL (0.2 mg/dL) Urine Leukocyte Esterase Negative (NEG) Urine RBC 3-5 /HPF (0-2) Urine WBC 5-10 /HPF (0-4) Urine Squamous Epithelial Cells Few /LPF Urine Bacteria Few /HPF (0-FEW) Urine Mucus Slight /LPF Laboratory Tests 04/08/18 19:19 Laboratory Tests 04/08/18 19:19 EKG EKG [] Radiology/Procedures Radiology/Procedures PROCEDURE: CHEST PA & LATERAL EXAM: CHEST 2 VIEWS. HISTORY: Cough, fever. COMPARISON: November 08, 2016. FINDINGS: Frontal and lateral views of the chest are obtained. There are no confluent infiltrates. There is no pneumothorax or pleural effusion. The heart is not enlarged. IMPRESSION: 1. No confluent infiltrates. Electronically signed by: Ten Willoughby MD (04/08/2018 8:37 PM) [facility] DICTATED and SIGNED BY: KEANU WILLOUGHBY MD DATE: 04/08/182035 Course & Med Decision Making Course & Med Decision Making Pertinent Labs and Imaging studies reviewed. (See chart for details) 2044: On reevaluation patient reports she has had some improvement in symptoms. She remains alert and oriented 3 and in no visible distress at this time. Patient states following DuoNeb her breathing has improved and she does continue to have intermittent nonproductive cough during this reevaluation. Test results were discussed with chest x-ray showing no acute findings. Patient' s LFTs were elevated AST/ALT 43/66 Alk Phos 125- with patient reporting she is uncertain if she has had this in the past. Discussed need to have labs rechecked by her primary care physician in next 3-4 days. WBCs NL at 7.3 Glucose 376 with pt reporting her BS is always elevated- anion gap 9 with UA neg. for ketones. Pt reports she is due for her night insulin. Patient was given IV fluids while in the ER and denies any right side abdominal pain. Discussed probable viral symptoms. Patient has been afebrile while in the ER. Discussed use of ibuprofen for fever and pain with patient avoiding acetaminophen until LFTs are rechecked. Patient encouraged to increase fluid intake and rest. Smoking cessation was discussed. Education provided on signs and symptoms to return to ER for an discharge instructions were discussed. With patient's elevated glucose at will avoid steroids at this time. Patient strongly advised on monitoring her glucose at home and have reevaluation with primary doctor in next 3-4 days for reevaluation and to discuss her diabetes. Patient remains on Flagyl currently as she was diagnosed with BV on Tuesday- denying any vaginal symptoms and reports she did have abdominal pain similar prior to her diagnosis on Tuesday. Dragon Disclaimer Dragon Disclaimer This electronic medical record was generated, in whole or in part, using a voice recognition dictation system. Departure Departure Impression: Primary Impression: Cough Additional Impressions: Viral syndrome Abdominal pain Headache Disposition: HOME, SELF-CARE Condition: STABLE Referrals: NO PCP (PCP) Patient Instructions: Abdominal Pain, Cough, Adult, General Headache Without Cause, Viral Syndrome Additional Instructions: Avoid acetaminophen/tylenol products until you have your liver function labs re- checked. He should follow-up with your primary doctor in next 3-4 days for reevaluation to further discuss diabetes control and elevated liver function tests. Drink plenty of water. Stop smoking. Ibuprofen as directed on container for headache and fever control. Continue home medications as previously prescribed. Problem Qualifiers EVELINE CHEUNG APRN Apr 08, 2018 19:51
[2018-04-08 19:52] LABS: BILIRUBIN,URINE NEGATIVE (NEG); CLARITY,URINE CLEAR; COLOR,URINE YELLOW; NITRITE,URINE NEGATIVE (NEG); PROTEIN,URINE NEGATIVE (NEG-TRACE); UROBILINOGEN,URINE 0.2 mg/dL (0.2 mg/dL)
[2018-04-08] MEDS ORDERED: diphenhydrAMINE 50 MG/ML VIAL IVP ONE (20:00)
[2018-04-08] MEDS ORDERED: IV NORMAL SALINE 1000ML BAG 1,000 ML IV ONE (20:00)
[2018-04-08] MEDS ORDERED: IPRATRPIUM/ALBUTEROL 0.5/2.5MG 3 ML NEBU. NEB ONE (20:00)
[2018-04-08 20:04] LABS: CALCIUM 10.1 mg/dL (8.5-10.1); CREATININE 0.8 mg/dL (0.6-1.0); GFR 78.7
[2018-04-08 20:05] LABS: BACTERIA,URINE FEW /HPF (0-FEW)
[2018-04-08 20:06] LABS: SQUAMOUS EPITHELIAL CELL,UR FEW /LPF
[2018-04-08 20:10] LABS: ALBUMIN 3.7 g/dL (3.4-5.0); ALBUMIN/GLOBULIN RATIO 0.9 (1.0-1.7); TOTAL BILIRUBIN 0.5 mg/dL (0.2-1.0)
[2018-04-08] MEDS ORDERED: ONDANSETRON PF 4 MG/2 ML VIAL. IV ONE (20:30)
[2018-04-08] MEDS ORDERED: KETOROLAC 15 MG/ML VIAL. IV ONE (20:30)
--- NOTE | 2018-04-08 20:40 | RAD ---
EXAM: CHEST 2 VIEWS. HISTORY: Cough, fever. COMPARISON: November 08, 2016. FINDINGS: Frontal and lateral views of the chest are obtained. There are no confluent infiltrates. There is no pneumothorax or pleural effusion. The heart is not enlarged. IMPRESSION: 1. No confluent infiltrates. Electronically signed by: Ten Willoughby MD (04/08/2018 8:37 PM) [facility]
[2018-04-08 21:26] VITALS: BP 128/64
== END 2018-04-08 21:37 | disposition home or self-care (01) ==
LOC: ER 18:51
DX: B34.9 Viral infection, unspecified (principal); R10.84 Generalized abdominal pain; G89.29 Other chronic pain; M54.5 Low back pain; E11.9 Type 2 diabetes mellitus without complications; J45.909 Unspecified asthma, uncomplicated; I10 Essential (primary) hypertension; I25.2 Old myocardial infarction; Z91.013 Allergy to seafood
CPT/HCPCS: 36415; 71046; 80053; 81001; 83690; 85025; 94640; 96374; 96375; 99285; J1200; J1885; J2405; J7030; J7620

== ENCOUNTER 2018-09-17 21:56 | Emergency (ER) | payer OTHER ==
[~2018-09-17] VITALS: Ht 172.7 cm; Wt 90.7 kg
[~2018-09-17 21:56] MED LIST changes: -GABA600T2 PO; +GABA600T7 PO; +HYDR-3164 PO; -HYDR-971 PO; -HYDR15SO4 PO; +HYDR15SO6 PO; +TRAZ-118 PO; -TRAZ-85 PO
--- NOTE | 2018-09-17 23:26 | PHYS DOC ---
Past Medical History Past Medical History: Diabetes-Type I, Heart Disease, Hypertension, Renal Disease Additional Past Medical Histor: fibroid tumors [place]: Chronic abdominal pain Past Surgical History: Cholecystectomy, Hysterectomy Additional Past Surgical Histo: carpal tunnel, R elbow,D&C Smoking: Cigarettes, Less than 1pk/day Alcohol Use: None Drug Use: None Adult General Chief Complaint Chief Complaint: FLANK PAIN HPI HPI Patient is a 42 year old female who presents to the ER with complaints of left flank pain, nausea, and vomiting that started today. She currently rates her pain an 8/10 on the pain scale and reports taking 800 mg of ibuprofen with no relief of her pain. Pt denies any diarrhea, constipation, fever, hematuria, dysuria, or incontinence. Review of Systems Review of Systems Constitutional: Denies fever or chills [] Eyes: Denies changes HENT: Denies nasal congestion or sore throat [] Respiratory: Denies cough or shortness of breath [] Cardiovascular: No additional information not addressed in HPI [] GI: Denies diarrhea; see HPI : Denies dysuria or hematuria; reports left flank pain [] Musculoskeletal: left low back pain Integument: Denies rash Neurologic: Denies headache Endocrine: Reports history of diabetes with frequent hyperglycemia Complete systems were reviewed and found to be within normal limits, except as documented in this note. Current Medications Current Medications Current Medications Medications (Trade) Dose Ordered Sig/Dominique Start Time Stop Time Status Last Admin Dose Admin Insulin Human Regular (HumuLIN R VIAL) 10 unit 1X ONCE 09/18/18 02:00 09/18/18 02:01 DC 09/18/18 02:22 10 UNIT Morphine Sulfate (Morphine Sulfate) 4 mg 1X ONCE 09/18/18 02:30 09/18/18 02:31 09/18/18 02:23 4 MG Sodium Chloride 1,000 ml @ 1,000 mls/hr 1X ONCE 09/18/18 00:30 09/18/18 01:29 DC 09/18/18 00:25 1,000 MLS/HR Allergies Allergies Allergies Coded Allergies Type Severity Reaction Last Updated Verified shrimp Allergy Intermediate 11/26/16 Yes Physical Exam Physical Exam Constitutional: Well developed, well nourished, no acute distress, non-toxic appearance, obese. [] HENT: Normocephalic, atraumatic, bilateral external ears normal, nose normal. [] Eyes: conjunctiva normal, no discharge. [] Neck: Normal range of motion, no stridor. [] Cardiovascular:Heart rate regular rhythm, no murmur [] Lungs & Thorax: Bilateral breath sounds clear to auscultation [] Abdomen: Bowel sounds normal, soft, no masses, no pulsatile masses; LLQ TTP, no guarding Skin: Warm, dry, no erythema, no rash. [] Back: left CVA tenderness. [] Extremities: No cyanosis, ROM intact, no edema. [] Neurologic: Alert and oriented X 3, no focal deficits noted. [] Psychologic: Affect normal, judgement normal, mood normal. [] Current Patient Data Vital Signs Vital Signs Date Time Temp Pulse Resp B/P (MAP) Pulse Ox O2 Delivery O2 Flow Rate FiO2 09/18/18 02:23 18 97 Room Air 09/18/18 00:20 97 140/80 (100) 09/17/18 22:49 97.3 97.3 Lab Values Laboratory Tests Test 09/17/18 21:56 09/17/18 22:55 09/17/18 23:05 Urine Collection Type Unknown Urine Color Yellow Urine Clarity Clear Urine pH 6.5 Urine Specific [place] >=1.030 Urine Protein Negative mg/dL (NEG-TRACE) Urine Glucose (UA) >=1000 mg/dL (NEG) Urine Ketones (Stick) Negative mg/dL (NEG) Urine Blood Negative (NEG) Urine Nitrite Negative (NEG) Urine Bilirubin Negative (NEG) Urine Urobilinogen Dipstick 0.2 mg/dL (0.2 mg/dL) Urine Leukocyte Esterase Negative (NEG) Urine RBC 3-5 /HPF (0-2) Urine WBC 1-4 /HPF (0-4) Urine Squamous Epithelial Cells Few /LPF Urine Bacteria 0 /HPF (0-FEW) POC Urine HCG, Qualitative Hcg negative (Negative) White Blood Count 6.6 x10^3/uL (4.0-11.0) Red Blood Count 4.83 x10^6/uL (3.50-5.40) Hemoglobin 13.8 g/dL (12.0-15.5) Hematocrit 41.1 % (36.0-47.0) Mean Corpuscular Volume 85 fL (79-100) Mean Corpuscular Hemoglobin 29 pg (25-35) Mean Corpuscular Hemoglobin Concent 34 g/dL (31-37) Red Cell Distribution Width 14.4 % (11.5-14.5) Platelet Count 163 x10^3/uL (140-400) Neutrophils (%) (Auto) 58 % (31-73) Lymphocytes (%) (Auto) 35 % (24-48) Monocytes (%) (Auto) 5 % (0-9) Eosinophils (%) (Auto) 2 % (0-3) Basophils (%) (Auto) 1 % (0-3) Neutrophils # (Auto) 3.8 x10^3uL (1.8-7.7) Lymphocytes # (Auto) 2.3 x10^3/uL (1.0-4.8) Monocytes # (Auto) 0.3 x10^3/uL (0.0-1.1) Eosinophils # (Auto) 0.1 x10^3/uL (0.0-0.7) Basophils # (Auto) 0.0 x10^3/uL (0.0-0.2) Sodium Level 136 mmol/L (136-145) Potassium Level 3.9 mmol/L (3.5-5.1) Chloride Level 97 mmol/L (98-107) L Carbon Dioxide Level 32 mmol/L (21-32) Anion Gap 7 (6-14) Blood Urea Nitrogen 10 mg/dL (7-20) Creatinine 0.8 mg/dL (0.6-1.0) Estimated GFR (Cockcroft-Gault) 78.7 BUN/Creatinine Ratio 13 (6-20) Glucose Level 522 mg/dL (70-99) *H Calcium Level 9.5 mg/dL (8.5-10.1) Total Bilirubin 0.3 mg/dL (0.2-1.0) Aspartate Amino Transferase (AST) 26 U/L (15-37) Alanine Aminotransferase (ALT) 52 U/L (14-59) Alkaline Phosphatase 134 U/L (46-116) H Total Protein 7.8 g/dL (6.4-8.2) Albumin 3.3 g/dL (3.4-5.0) L Albumin/Globulin Ratio 0.7 (1.0-1.7) L Laboratory Tests 09/17/18 23:05 Laboratory Tests 09/17/18 23:05 EKG EKG [] Radiology/Procedures Radiology/Procedures PROCEDURE: CT ABDOMEN PELVIS WO CONTRAST INDICATION: flank pain blood in urine, LEFT SIDE PAIN COMPARISON: September 2017 TECHNIQUE: Axial CT images obtained through the abdomen and pelvis without contrast.. One or more of the following individualized dose reduction techniques were utilized for this examination: 1. Automated exposure control; 2. Adjustment of the mA and/or kV according to patient size; 3. Use of iterative reconstruction technique. FINDINGS: Adjacent to the right-sided the heart there is a fluid density structure identified measuring approximately 26 x 48 mm. Abdominal aorta is not aneurysmal. No intrahepatic bile duct dilation. Gallbladder has been removed. Liver prominent in size. No peripancreatic fluid collection. Spleen prominent in size. Mild prominence of the bilateral renal pelvis. Urinary bladder is partially distended. Mild indistinctness of fat adjacent to portion of all. No definite periappendiceal inflammation. Appendix measures up to approximately 6 mm which is near the upper limits of normal in size. No dilated loops of bowel to suggest obstruction. Degenerative changes of the spine. Lucent lesion T11 vertebral body measuring up to 19 mm. Most common cause would be vertebral body hemangioma unless the patient has history of neoplasm. This appears slightly increased from 2016 IMPRESSION: 1. Mild prominence of the bilateral extrarenal pelvis without a definite radiopaque obstructive ureter stone. 2. Mild indistinctness of the fat adjacent to a part of the urinary bladder. This is a very mild finding and could be artifactual in nature but if the patient is having appropriate symptoms causes such as mild cystitis can have this appearance. 3. Cystic structure adjacent to the right-sided the heart. One of the most common causes would be a pericardial cyst however if more complete characterization is desired a nonemergent echocardiogram or MRI could further evaluate to ensure that there is no complex component. Benign causes are favored given the appearance however does appear slightly increased in size when compared to remote prior from 2016.[] Course & Med Decision Making Course & Med Decision Making Pertinent Labs and Imaging studies reviewed. (See chart for details) Dx: left flank pain, hyperglycemia CT abd/pel did not reveal a kidney stone. There is a Cystic structure adjacent to the right-sided the heart, pt encouraged to follow up with PCP for further evaluation. UA not concerning for UTI. CBC unremarkable, CMP glucose 522, Pt was given 1L NS , 10 u IV regular insulin, and 4 mg morphine in the ER. Prescription written for tylenol 3, #8. Pt instructed to return to ER if symptoms worsen. Patient verbalized an understanding of home care, medications, follow-up, and return to ED instructions and was in agreement with the plan of care. [] Dragon Disclaimer Dragon Disclaimer This electronic medical record was generated, in whole or in part, using a voice recognition dictation system. Departure Departure Impression: Primary Impression: Acute left flank pain Additional Impression: Hyperglycemia Disposition: HOME, SELF-CARE Condition: STABLE Referrals: NO PCP (PCP) Patient Instructions: Flank Pain, [id number], Hyperglycemia, [id number] Additional Instructions: Fill the prescriptions and take as directed. Follow up with your primary care doctor as instructed. Return to the ER if symptoms worsen. Scripts Fluconazole (DIFLUCAN) 150 Mg Tablet 1 TAB PO ONCE, #1 TAB 0 Refills Prov: ABE MARTINES [employer] OPERATOR 09/18/18 Acetaminophen With Codeine (TYLENOL WITH CODEINE #3 TABLET) 1 Each Tablet 1 TAB PO PRN Q6HRS PRN for PAIN for 2 Days, #8 TAB 0 Refills Prov: ABE MARTINES [employer] OPER[employer] 09/18/18 Problem Qualifiers ABE MARTINES [employer] OPERATOR Sep 17, 2018 23:26
[2018-09-17 23:32] LABS: BILIRUBIN,URINE NEGATIVE (NEG); CLARITY,URINE CLEAR; COLOR,URINE YELLOW; NITRITE,URINE NEGATIVE (NEG); PH,URINE 6.5; PROTEIN,URINE NEGATIVE (NEG-TRACE); UROBILINOGEN,URINE 0.2 mg/dL (0.2 mg/dL)
[2018-09-17 23:39] LABS: BACTERIA,URINE 0 /HPF (0-FEW); SQUAMOUS EPITHELIAL CELL,UR FEW /LPF
[2018-09-18] MEDS ORDERED: IV NORMAL SALINE 1000ML BAG 1,000 ML IV ONE (00:30)
[2018-09-18 00:32] LABS: BASO % 1 % (0-3); EOS # 0.1 x10^3/uL (0.0-0.7); EOS % 2 % (0-3); HEMATOCRIT 41.1 % (36.0-47.0); HEMOGLOBIN 13.8 g/dL (12.0-15.5); LYMPH # 2.3 x10^3/uL (1.0-4.8); LYMPH % 35 % (24-48); MEAN CORPUSCULAR HEMOGLOBIN 29 pg (25-35); MEAN CORPUSCULAR HGB CONC 34 g/dL (31-37); MEAN CORPUSCULAR VOLUME 85 fL (79-100); MONO # 0.3 x10^3/uL (0.0-1.1); MONO % 5 % (0-9); NEUT # 3.8 x10^3uL (1.8-7.7); NEUT % 58 % (31-73); PLATELET COUNT 163 x10^3/uL (140-400); RED BLOOD COUNT 4.83 x10^6/uL (3.50-5.40); RED CELL DISTRIBUTION WIDTH 14.4 % (11.5-14.5); WHITE BLOOD COUNT 6.6 x10^3/uL (4.0-11.0)
[2018-09-18 00:44] LABS: ALBUMIN 3.3 g/dL (3.4-5.0); ALBUMIN/GLOBULIN RATIO 0.7 (1.0-1.7); CALCIUM 9.5 mg/dL (8.5-10.1); CREATININE 0.8 mg/dL (0.6-1.0); GFR 78.7; POTASSIUM 3.9 mmol/L (3.5-5.1); TOTAL BILIRUBIN 0.3 mg/dL (0.2-1.0); TOTAL PROTEIN 7.8 g/dL (6.4-8.2)
--- NOTE | 2018-09-18 01:31 | RAD ---
INDICATION: flank pain blood in urine, LEFT SIDE PAIN COMPARISON: September 2017 TECHNIQUE: Axial CT images obtained through the abdomen and pelvis without contrast.. One or more of the following individualized dose reduction techniques were utilized for this examination: 1. Automated exposure control; 2. Adjustment of the mA and/or kV according to patient size; 3. Use of iterative reconstruction technique. FINDINGS: Adjacent to the right-sided the heart there is a fluid density structure identified measuring approximately 26 x 48 mm. Abdominal aorta is not aneurysmal. No intrahepatic bile duct dilation. Gallbladder has been removed. Liver prominent in size. No peripancreatic fluid collection. Spleen prominent in size. Mild prominence of the bilateral renal pelvis. Urinary bladder is partially distended. Mild indistinctness of fat adjacent to portion of all. No definite periappendiceal inflammation. Appendix measures up to approximately 6 mm which is near the upper limits of normal in size. No dilated loops of bowel to suggest obstruction. Degenerative changes of the spine. Lucent lesion T11 vertebral body measuring up to 19 mm. Most common cause would be vertebral body hemangioma unless the patient has history of neoplasm. This appears slightly increased from 2016 IMPRESSION: 1. Mild prominence of the bilateral extrarenal pelvis without a definite radiopaque obstructive ureter stone. 2. Mild indistinctness of the fat adjacent to a part of the urinary bladder. This is a very mild finding and could be artifactual in nature but if the patient is having appropriate symptoms causes such as mild cystitis can have this appearance. 3. Cystic structure adjacent to the right-sided the heart. One of the most common causes would be a pericardial cyst however if more complete characterization is desired a nonemergent echocardiogram or MRI could further evaluate to ensure that there is no complex component. Benign causes are favored given the appearance however does appear slightly increased in size when compared to remote prior from 2016. Electronically signed by: Man Braun MD (09/18/2018 1:28 AM) [facility]
[2018-09-18] MEDS ORDERED: INSULIN REGULAR 100 UNIT/ML 3ML VIAL. IV ONE (02:00)
[2018-09-18] MEDS ORDERED: ACET-704 PO (02:18)
[2018-09-18] MEDS ORDERED: MORPHINE SULFATE 4 MG/ML VIAL. IV ONE (02:30)
[2018-09-18] MEDS ORDERED: FLUC150T PO (02:31)
[2018-09-18 02:57] VITALS: BP 140/86
== END 2018-09-18 03:00 | disposition home or self-care (01) ==
LOC: ER 21:56
DX: R10.32 Left lower quadrant pain (principal); E10.65 Type 1 diabetes mellitus with hyperglycemia; R11.2 Nausea with vomiting, unspecified; I11.9 Hypertensive heart disease without heart failure; G89.29 Other chronic pain; I25.2 Old myocardial infarction; F17.210 Nicotine dependence, cigarettes, uncomplicated; Z90.49 Acquired absence of other specified parts of digestive tract; Z90.710 Acquired absence of both cervix and uterus; Z79.4 Long term (current) use of insulin; Z91.013 Allergy to seafood
CPT/HCPCS: 36415; 74176; 80053; 81001; 81025; 85025; 96361; 96374; 96375; 99284; J1815; J2270; J7030

== ENCOUNTER 2018-10-24 21:56 | Emergency (ER) | payer OTHER ==
[~2018-10-24] VITALS: Ht 172.7 cm; Wt 104.3 kg
[~2018-10-24 21:56] MED LIST changes: +ACET-704 PO
[2018-10-24 23:14] VITALS: BP 158/84
--- NOTE | 2018-10-24 23:39 | PHYS DOC ---
Past Medical History Past Medical History: Diabetes-Type I, Heart Disease, Hypertension, Renal Disease Additional Past Medical Histor: fibroid tumors [place]: Chronic abdominal pain (CARINA GRACE APRN) Past Surgical History: Cholecystectomy, Hysterectomy Additional Past Surgical Histo: carpal tunnel, R elbow,D&C (CARINA GRACE APRN) Alcohol Use: None Drug Use: None (CARINA GRACE APRN) Adult General Chief Complaint Chief Complaint: TOE PROBLEM HPI HPI Patient is a 42 year old female with history of diabetes, hypertension, kidney disease, who presents today complaining of moderate sharp pain to all her toes on the right foot that began 4 days ago after she ran into an air conditioning unit. Patient states the pain is worse on weight bearing. She states she has tried [id number] remedies including ice and elevation with no relief. (CARINA GRACE APRN) Review of Systems Review of Systems Constitutional: Denies fever or chills [] Musculoskeletal: Reports pain to the right toes Integument: Denies rash or skin lesions [] Neurologic: Denies headache, focal weakness or sensory changes [] All other systems were reviewed and found to be within normal limits, except as documented in this note. (CARINA GRACE APRN) Current Medications Current Medications Current Medications Medications (Trade) Dose Ordered Sig/Dominique Start Time Stop Time Status Last Admin Dose Admin Acetaminophen/ Hydrocodone Bitart (Lortab 5/325) 2 tab 1X ONCE 10/24/18 23:45 10/24/18 23:46 DC 10/25/18 00:05 2 TAB Naproxen (Naprosyn) 500 mg 1X ONCE 10/24/18 23:45 10/24/18 23:46 DC 10/25/18 00:05 500 MG (PUNEET PHAM MD) Allergies Allergies Allergies Coded Allergies Type Severity Reaction Last Updated Verified shrimp Allergy Intermediate 11/26/16 Yes (PUNEET PHAM MD) Physical Exam Physical Exam Constitutional: Well developed, well nourished, no acute distress, non-toxic appearance. [] Skin: Warm, dry, no erythema, no rash. [] Back: No tenderness, no CVA tenderness. [] Extremities: Right foot with no obvious deformity. Swelling noted on the right fifth toe. Tenderness diffusely all the toes. Patient able to wiggle all her toes. +2 right pedal pulse. Cap refill less than 2 seconds the right toes. Sensation intact to the right toes. Neurologic: Alert and oriented X 3, normal motor function, normal sensory function, no focal deficits noted. [] Psychologic: Affect normal, judgement normal, mood normal. [] (CARINA GRACE APRN) Current Patient Data Vital Signs Vital Signs Date Time Temp Pulse Resp B/P (MAP) Pulse Ox O2 Delivery O2 Flow Rate FiO2 10/25/18 00:05 Room Air 10/24/18 23:14 98.4 158/84 (108) 98 98.4 (PUNEET PHAM MD) EKG EKG [] (CARINA GRACE APRN) Radiology/Procedures Radiology/Procedures [] (CARINA GRACE APRN) Course & Med Decision Making Course & Med Decision Making Pertinent Labs and Imaging studies reviewed. (See chart for details) This is a 42-year-old female patient presenting to the ED today with complaints of right pain to the right toes X 4 days, she ran into AC unit. Right foot xrays interpreted by Dr. Pham were noted for right fifth toe fx. Ortho shoe provided by Ed RN, neurovascular exam is intact. Ice elevation encouraged. F/u with Ortho. (CARINA GRACE APRN) Course & Med Decision Making Staff Physician Addendum: I was working in the ER during the course of this patient's visit. I was available for consultation as needed, but I was not directly involved in the care of this patient. (PUNEET PHAM MD) Dragon Disclaimer Dragon Disclaimer This electronic medical record was generated, in whole or in part, using a voice recognition dictation system. (CARINA GRACE APRN) Departure Departure Impression: Primary Impression: Toe fracture, right Disposition: 01 HOME, SELF-CARE Condition: STABLE Referrals: NO PCP (PCP) FRIEDA MOSES MD follow up in the course of this week Patient Instructions: Toe Fracture with [facility] Additional Instructions: You have right fifth toe fracture. Wear the Orthopedic shoe provided, ice and elevate the foot. F/u with the provided Orthopedic doctor in the course of this week. Scripts Hydrocodone/Apap 5-325 (NORCO 5-325 TABLET) 1 Each Tablet 1 TAB PO Q6HRS, #10 TAB Prov: MUTUNGA,CARINA GIRARD 10/24/18 Gabapentin (GABAPENTIN ) 300 Mg Capsule 300 MG PO TID for NEUROGENIC PAIN, #30 CAP Prov: CARINA GRACE SHAJI 10/24/18 Problem Qualifiers Primary Impression: Toe fracture, right Encounter type: initial encounter Toe: lesser toe Fracture type: closed Phalanx: middle Fracture alignment: nondisplaced Qualified Codes: S92.524A - Nondisplaced fracture of middle phalanx of right lesser toe(s), initial encounter for closed fracture FREDDIEROXANNECARINA Odell APRN Oct 24, 2018 23:39 PUNEET PHAM MD Oct 30, 2018 08:19
[2018-10-24] MEDS ORDERED: NAPROXEN 500 MG TABLET PO ONE (23:45)
[2018-10-24] MEDS ORDERED: HYDROcodone/APAP 5/325MG 1 TAB TABLET PO ONE (23:45)
[2018-10-24] MEDS ORDERED: GABA300C18 PO (23:49)
[2018-10-24] MEDS ORDERED: HYDR-3164 PO (23:49)
--- NOTE | 2018-10-25 08:42 | RAD ---
Three-view right foot study Clinical indications: Injury to right foot 4 days ago. Pain. Diabetes. FINDINGS: There is a nondisplaced transverse fracture of the distal metaphysis of the fifth proximal phalanx. No dislocation or lytic process is evident. Plantar and posterior spurs of the calcaneus are seen. IMPRESSION: Posttraumatic nondisplaced fracture of the fifth proximal phalanx. Electronically signed by: Madi Romero MD (10/25/2018 8:39 AM) [facility]
== END 2018-10-25 00:08 | disposition home or self-care (01) ==
LOC: ER 21:56
DX: S92.524A Nondisplaced fracture of middle phalanx of right lesser toe(s), initial encounter for closed fracture (principal); E10.9 Type 1 diabetes mellitus without complications; I11.9 Hypertensive heart disease without heart failure; G89.29 Other chronic pain; I25.2 Old myocardial infarction; Z90.49 Acquired absence of other specified parts of digestive tract; Z90.710 Acquired absence of both cervix and uterus; Z91.013 Allergy to seafood; W22.8XXA Striking against or struck by other objects, initial encounter; Y93.89 Activity, other specified; Y92.89 Other specified places as the place of occurrence of the external cause; Y99.8 Other external cause status
CPT/HCPCS: 73630; 99284

== ENCOUNTER 2019-01-11 14:01 | Emergency (ER) | payer OTHER ==
[~2019-01-11] VITALS: Ht 172.7 cm; Wt 95.4 kg
[~2019-01-11 14:01] MED LIST changes: +GABA300C18 PO
[2019-01-11 14:28] VITALS: BP 161/90
--- NOTE | 2019-01-11 15:46 | RAD ---
CERVICAL SPINE 2-3V History: Hit by door, pain Comparison: None. Findings: 3 views of the cervical spine are submitted. There is adequate alignment of the lateral masses of C1 relative to C2. Occipital condylar-C1 articulation is maintained. There is fairly advanced degenerative disc disease C4-5 and C6-7, minimally at C5-6. There is spondylosis greatest at C4-5 and C6-7. Cervical vertebral body stature and AP alignment are adequate. No acute cervical spine fracture is identified by radiographs. There is multilevel cervical facet degenerative change. Impression: 1. There is degenerative disc disease and spondylosis at C4-5 and C6-7. No acute cervical spine fracture is identified by radiographs. There is multilevel cervical facet degenerative change. Electronically signed by: Grover Meyers MD (01/11/2019 3:42 PM) [facility]
--- NOTE | 2019-01-11 15:54 | RAD ---
SHOULDER 2+V LEFT History: Hit by door. Pain.. No evidence of acute fracture. No aggressive bone destruction. Joint spaces are intact. No apparent soft tissue abnormality. IMPRESSION: No evidence of acute fracture or dislocation. Electronically signed by: Serafin Perez MD (01/11/2019 3:52 PM) [facility]
[2019-01-11] MEDS ORDERED: NAPR-514 PO (16:44)
--- NOTE | 2019-01-11 16:44 | PHYS DOC ---
Past Medical History Past Medical History: Diabetes-Type II, Gallstones, Hypertension Additional Past Medical Histor: fibroid tumors [place]: Chronic abdominal pain, NEUROPATHY Past Surgical History: Hysterectomy Additional Past Surgical Histo: carpal tunnel, R elbow,D&C Additional Information: 5-8 CIGS/DAY Alcohol Use: None Drug Use: None Adult General Chief Complaint Chief Complaint: BACK INJURY [facility] HPI Patient is a 43 year old female with history of diabetes type 2, hypertension, chronic pain, who presents to the ED today complaining of 8 out of 10 left shoulder pain as well as posterior neck pain that began 4 weeks ago after she got hit by a door at work. She states she has been seen by her own PCP for this pain and was told this pain should of subsided earlier on. She states she is here to get x-rays because she still has the pain. She is on a pain clinic contract and states she is not allowed to get any narcotics from anyone. She describes the pain as sharp and constant worse on bending her left upper extremity down. She states it's relieved by raising her left upper extremity above her head. Review of Systems Review of Systems Constitutional: Denies fever or chills [] Eyes: Denies change in visual acuity, redness, or eye pain [] HENT: Denies nasal congestion or sore throat [] Respiratory: Denies cough or shortness of breath [] Cardiovascular: No additional information not addressed in HPI [] GI: Denies abdominal pain, nausea, vomiting, bloody stools or diarrhea [] : Denies dysuria or hematuria [] Musculoskeletal: Reports left posterior neck pain as well as left shoulder pain Integument: Denies rash or skin lesions [] Neurologic: Denies headache, focal weakness or sensory changes [] All other systems were reviewed and found to be within normal limits, except as documented in this note. Allergies Allergies Allergies Coded Allergies Type Severity Reaction Last Updated Verified shrimp Allergy Intermediate 11/26/16 Yes Physical Exam Physical Exam Constitutional: Well developed, well nourished, no acute distress, non-toxic appearance. [] HENT: Normocephalic, atraumatic, bilateral external ears normal, oropharynx moist, no oral exudates, nose normal. [] Eyes: PERRLA, EOMI, conjunctiva normal, no discharge. [] Neck: Normal range of motion, no tenderness, supple, no stridor. [] Cardiovascular:Heart rate regular rhythm, no murmur [] Lungs & Thorax: Bilateral breath sounds clear to auscultation [] Abdomen: Bowel sounds normal, soft, no tenderness, no masses, no pulsatile masses. [] Skin: Warm, dry, no erythema, no rash. [] Back: No tenderness, no CVA tenderness. [] Extremities: No tenderness, no cyanosis, no clubbing, ROM intact, no edema. [] Neurologic: Alert and oriented X 3, normal motor function, normal sensory function, no focal deficits noted. [] Psychologic: Affect normal, judgement normal, mood normal. [] Current Patient Data Vital Signs Vital Signs Date Time Temp Pulse Resp B/P (MAP) Pulse Ox O2 Delivery O2 Flow Rate FiO2 01/11/19 14:28 98.0 98 18 161/90 (113) 100 Room Air 98.0 EKG EKG [] Radiology/Procedures Radiology/Procedures []PROCEDURE: CERVICAL SPINE 2-3V CERVICAL SPINE 2-3V History: Hit by door, pain Comparison: None. Findings: 3 views of the cervical spine are submitted. There is adequate alignment of the lateral masses of C1 relative to C2. Occipital condylar-C1 articulation is maintained. There is fairly advanced degenerative disc disease C4-5 and C6-7, minimally at C5-6. There is spondylosis greatest at C4-5 and C6-7. Cervical vertebral body stature and AP alignment are adequate. No acute cervical spine fracture is identified by radiographs. There is multilevel cervical facet degenerative change. Impression: 1. There is degenerative disc disease and spondylosis at C4-5 and C6-7. No acute cervical spine fracture is identified by radiographs. There is multilevel cervical facet degenerative change. Electronically signed by: Alesha Elise MD (01/11/2019 3:42 PM) [facility] DICTATED and SIGNED BY: ALESHA ELISE MD DATE: 01/11/19 1542 PROCEDURE: SHOULDER 2+V LEFT SHOULDER 2+V LEFT History: Hit by door. Pain.. No evidence of acute fracture. No aggressive bone destruction. Joint spaces are intact. No apparent soft tissue abnormality. IMPRESSION: No evidence of acute fracture or dislocation. Electronically signed by: Serafin Perez MD (01/11/2019 3:52 PM) [facility] DICTATED and SIGNED BY: SERAFIN PEREZ MD DATE: 01/11/19 1552 Course & Med Decision Making Course & Med Decision Making Pertinent Labs and Imaging studies reviewed. (See chart for details) This is a 33-year-old female patient who presents to the ED today complaining of left shoulder pain as well as posterior neck pain after being hit by a door 4 weeks ago. Patient is requesting x-rays. X-rays of the cervical spine and left shoulder are negative for any acute findings. She was discharged to home. She is on a pain contract. Instructed to continue taking her pain medicines at home rx for naproxen provided. Dragon Disclaimer Dragon Disclaimer This electronic medical record was generated, in whole or in part, using a voice recognition dictation system. Departure Departure Impression: Primary Impression: Contusion of neck Additional Impression: Contusion of left shoulder Disposition: 01 HOME, SELF-CARE Condition: STABLE Referrals: NO PCP (PCP) Follow-up with your doctor in one week Patient Instructions: Contusion Additional Instructions: You were evaluated in the emergency room for contusions. Your X-rays are negative for any acute findings. Please follow-up with your doctor next week. Continue taking your pain medications at home. Scripts Naproxen (NAPROXEN) 500 Mg Tablet 1 TAB PO BID, #20 TAB 0 Refills Prov: CARINA GRACE APRN 01/11/19 Problem Qualifiers Primary Impression: Contusion of neck Encounter type: initial encounter Qualified Codes: S10.93XA - Contusion of unspecified part of neck, initial encounter Additional Impression: Contusion of left shoulder Encounter type: initial encounter Qualified Codes: S40.012A - Contusion of left shoulder, initial encounter CARINA GRACE APRN Jan 11, 2019 16:44
== END 2019-01-11 16:48 | disposition home or self-care (01) ==
LOC: ER 14:01
DX: S10.93XA Contusion of unspecified part of neck, initial encounter (principal); S40.012A Contusion of left shoulder, initial encounter; E11.40 Type 2 diabetes mellitus with diabetic neuropathy, unspecified; I10 Essential (primary) hypertension; G89.29 Other chronic pain; I25.2 Old myocardial infarction; F17.210 Nicotine dependence, cigarettes, uncomplicated; Z91.013 Allergy to seafood; W22.8XXA Striking against or struck by other objects, initial encounter; Y93.89 Activity, other specified; Y92.69 Other specified industrial and construction area as the place of occurrence of the external cause; Y99.0 Civilian activity done for income or pay
CPT/HCPCS: 72040; 73030; 99284

== ENCOUNTER 2019-03-27 16:53 | Emergency (ER) | payer OTHER ==
[~2019-03-27] VITALS: Ht 172.7 cm; Wt 90.7 kg
[~2019-03-27 16:53] MED LIST changes: +CLON-77 PO; -CLON0.5T11 PO; +NAPR-514 PO
[2019-03-27] MEDS ORDERED: CEPH-264 PO (17:17)
--- NOTE | 2019-03-27 17:18 | PHYS DOC ---
Past Medical History Past Medical History: Diabetes-Type II, Gallstones, Hypertension Additional Past Medical Histor: fibroid tumors [place]: Chronic abdominal pain, NEUROPATHY Past Surgical History: Hysterectomy Additional Past Surgical Histo: carpal tunnel, R elbow,D&C Alcohol Use: None Drug Use: None Adult General Chief Complaint Chief Complaint: WOUND CHECK HPI HPI Patient is a 43 year old female presents to the ED complaining of pimple to right chin �2 days ago. States that it is open draining. States she's had some redness spread from it. States she is concerned it is infected. States she's had this happen before. Reports tetanus is up-to-date. Denies fever, decreased range of motion, injury, chills, headache, nausea/vomiting. Review of Systems Review of Systems Constitutional: Denies fever or chills [] Eyes: Denies change in visual acuity, redness, or eye pain [] HENT: Denies nasal congestion or sore throat [] Respiratory: Denies cough or shortness of breath [] Cardiovascular: No additional information not addressed in HPI [] GI: Denies abdominal pain, nausea, vomiting, bloody stools or diarrhea [] : Denies dysuria or hematuria [] Musculoskeletal: Denies back pain or joint pain [] Integument: Denies rash or skin lesions [] Neurologic: Denies headache, focal weakness or sensory changes [] All other systems were reviewed and found to be within normal limits, except as documented in this note. Allergies Allergies Allergies Coded Allergies Type Severity Reaction Last Updated Verified shrimp Allergy Intermediate 11/26/16 Yes Physical Exam Physical Exam Constitutional: Well developed, well nourished, no acute distress, non-toxic appearance. [] HENT: Normocephalic, atraumatic Skin: 1 cm round pimple to right chin open and draining with minimal surrounding erythema. no induration or fluctuance. Warm, dry, no erythema, no rash. [] Back: No tenderness, no CVA tenderness. [] Extremities: No tenderness, no cyanosis, no clubbing, ROM intact, no edema. [] Neurologic: Alert and oriented X 3, normal motor function, normal sensory function, no focal deficits noted. [] Psychologic: Affect normal, judgement normal, mood normal. [] Current Patient Data Vital Signs Vital Signs Date Time Temp Pulse Resp B/P (MAP) Pulse Ox O2 Delivery O2 Flow Rate FiO2 03/27/19 17:35 98.1 115 20 146/84 (104) 98 Room Air 98.1 EKG EKG [] Radiology/Procedures Radiology/Procedures [] Course & Med Decision Making Course & Med Decision Making Pertinent Labs and Imaging studies reviewed. (See chart for details) []Pimple open and draining. Mild erythema surrounding it. No incision and drainage required.Tetanus up-to-date. We'll cover with prophylactic abx. Discussed symptomatic treatment follow-up. Discussed reasons to return to the ED. Patient and agrees with plan. Dragon Disclaimer Dragon Disclaimer This electronic medical record was generated, in whole or in part, using a voice recognition dictation system. Departure Departure Impression: Primary Impression: Abscess Disposition: 01 HOME, SELF-CARE Condition: IMPROVED Referrals: UNKNOWN PCP NAME (PCP) LONA SOARES MD Patient Instructions: Abscess Scripts Fluconazole (DIFLUCAN) 150 Mg Tablet 1 TAB PO ONCE, #1 TAB 1 Refill Prov: DALTON JAMISON 03/27/19 Cephalexin (KEFLEX) 500 Mg Capsule 1 CAP PO TID, #21 CAP Prov: DALTON JAMISON 03/27/19 DALTON JAMISON Mar 27, 2019 17:18
[2019-03-27 17:35] VITALS: BP 146/84
[2019-03-27] MEDS ORDERED: FLUC150T PO (18:14)
== END 2019-03-27 18:05 | disposition home or self-care (01) ==
LOC: ER 16:53
DX: L02.01 Cutaneous abscess of face (principal); I10 Essential (primary) hypertension; G89.29 Other chronic pain; E11.40 Type 2 diabetes mellitus with diabetic neuropathy, unspecified; I25.2 Old myocardial infarction; Z90.710 Acquired absence of both cervix and uterus; Z91.013 Allergy to seafood
CPT/HCPCS: 99283

== ENCOUNTER 2019-10-27 06:54 | Emergency (ER) | payer OTHER ==
[~2019-10-27] VITALS: Ht 172.7 cm; Wt 85.0 kg
[~2019-10-27 06:54] MED LIST changes: +CEPH-264 PO
[2019-10-27] MEDS ORDERED: diphenhydrAMINE 50 MG/ML VIAL IVP ONE (07:15)
[2019-10-27] MEDS ORDERED: METOCLOPRAMIDE HCL 10 MG/2 ML VIAL. IV ONE (07:15)
[2019-10-27] MEDS ORDERED: IV NORMAL SALINE 1000ML BAG 1,000 ML IV ONE (07:15)
[2019-10-27] MEDS ORDERED: KETOROLAC 30 MG/ML VIAL. IV ONE (07:15)
[2019-10-27 07:24] LABS: BASO # 0.1 x10^3/uL (0.0-0.2); BASO % 1 % (0-3); EOS # 0.1 x10^3/uL (0.0-0.7); EOS % 2 % (0-3); HEMATOCRIT 47.9 % (36.0-47.0); HEMOGLOBIN 16.1 g/dL (12.0-15.5); LYMPH # 2.9 x10^3/uL (1.0-4.8); LYMPH % 34 % (24-48); MEAN CORPUSCULAR HEMOGLOBIN 28 pg (25-35); MEAN CORPUSCULAR HGB CONC 34 g/dL (31-37); MEAN CORPUSCULAR VOLUME 83 fL (79-100); MONO # 0.5 x10^3/uL (0.0-1.1); MONO % 6 % (0-9); NEUT # 4.9 x10^3/uL (1.8-7.7); NEUT % 57 % (31-73); PLATELET COUNT 189 x10^3/uL (140-400); RED BLOOD COUNT 5.78 x10^6/uL (3.50-5.40); RED CELL DISTRIBUTION WIDTH 13.9 % (11.5-14.5); WHITE BLOOD COUNT 8.5 x10^3/uL (4.0-11.0)
[2019-10-27 07:39] LABS: ALBUMIN 3.8 g/dL (3.4-5.0); CALCIUM 9.6 mg/dL (8.5-10.1); CREATININE 0.9 mg/dL (0.6-1.0); GFR 68.3; MAGNESIUM 1.9 mg/dL (1.8-2.4); POTASSIUM 4.1 mmol/L (3.5-5.1); TOTAL BILIRUBIN 0.6 mg/dL (0.2-1.0); TOTAL PROTEIN 7.6 g/dL (6.4-8.2)
[2019-10-27 07:47] LABS: BILIRUBIN,URINE NEGATIVE (NEG); CLARITY,URINE CLEAR; COLOR,URINE YELLOW; NITRITE,URINE NEGATIVE (NEG); PH,URINE 5.5 (<5.0-8.0); PROTEIN,URINE NEGATIVE (NEG-TRACE); UROBILINOGEN,URINE 0.2 mg/dL (0.2 mg/dL)
[2019-10-27 07:52] LABS: AMPHETAMINE/METHAMPHETAMINE NEG (NEG); BARBITURATES NEG (NEG); BENZODIAZEPINES NEG (NEG); CANNABINOIDS NEG (NEG); COCAINE NEG (NEG); METHADONE NEG (NEG); OPIATES NEG (NEG); PHENCYCLIDINE NEG (NEG)
--- NOTE | 2019-10-27 07:54 | RAD ---
INDICATION: Chest pain COMPARISON: April 2018 FINDINGS: Single view of chest obtained. No focal airspace consolidation or pulmonary edema. Cardiac silhouette is unremarkable. No pneumothorax is seen. IMPRESSION: * No focal airspace consolidation or edema. Electronically signed by: Man Braun MD (10/27/2019 7:51 AM) [id number]
[2019-10-27 07:55] LABS: BACTERIA,URINE 0 /HPF (0-FEW); RBC,URINE 0 /HPF (0-2); SQUAMOUS EPITHELIAL CELL,UR FEW /LPF; WBC,URINE 0 /HPF (0-4)
--- NOTE | 2019-10-27 08:10 | PHYS DOC ---
Past Medical History Past Medical History: Anxiety, Depression, Diabetes-Type II, Gallstones, Hypertension Additional Past Medical Histor: fibroid tumors [place]: Chronic abdominal pain, NEUROPATHY Past Surgical History: Cholecystectomy, Hysterectomy Additional Past Surgical Histo: carpal tunnel, R elbow,D&C Smoking Status: Current Every Day Smoker Alcohol Use: None Drug Use: None General Adult EDM: Chief Complaint: CHEST PAIN HPI: HPI: Patient is a 43-year-old female with multiple medical problems who presents to the emergency department with a 2-day history of chest discomfort. She states the pain is sharp and worse with a deep breath. She denies any fever chills or sweats. She has not had any cough or congestion. She denies any hemoptysis. She states the pain is in her mid chest and also in the left midaxillary chest. She also complains of a headache that she describes as her typical migraine. She is also had this for 2 straight days. She reports both photophobia and phonophobia. Recently she is developed some nausea secondary to the discomfort. She denies any lateralizing neurologic weakness. She also states that she is extremely anxious she just has a lot going on. She does report that she has a history of anxiety in the past. She denies any suicidal or homicidal ideation. [] Review of Systems: Review of Systems: Constitutional: Denies fever or chills. [] Eyes: Denies change in visual acuity. [] HENT: Denies nasal congestion or sore throat. [] Respiratory: Denies cough or shortness of breath. [] Cardiovascular: Per HPI. [] GI: Denies abdominal pain, reports nausea, denies vomiting, bloody stools or diarrhea. [] : Denies dysuria. [] Musculoskeletal: Denies back pain or joint pain. [] Integument: Denies rash. [] Neurologic: Reports headache . [] Endocrine: Denies polyuria or polydipsia. [] Lymphatic: Denies swollen glands. [] Psychiatric: Reports anxiety and depression Heart Score: HEART Score for Chest Pain: HEART Score for Chest Pain Response (Comments) Value History Slighlty/Non-Suspicious 0 ECG Normal 0 Age < 45 0 Risk Factors 1 or 2 Risk Factors 1 Troponin < Normal Limit 0 Total 1 Risk Factors: Risk Factors: DM, Current or recent (<one month) smoker, HTN, HLP, family his tory of CAD, obesity. Risk Scores: Score 0 - 3: 2.5% MACE over next 6 weeks - Discharge Home Score 4 - 6: 20.3% MACE over next 6 weeks - Admit for Clinical Observation Score 7 - 10: 72.7% MACE over next 6 weeks - Early Invasive Strategies Current Medications: Current Medications Medications (Trade) Dose Ordered Sig/Dominique Start Time Stop Time Status Last Admin Dose Admin Diphenhydramine HCl (Benadryl) 25 mg 1X ONCE 10/27/19 07:15 10/27/19 07:16 DC 10/27/19 07:33 25 MG Insulin Human Regular (HumuLIN R VIAL) 14 unit 1X ONCE 10/27/19 08:15 10/27/19 08:16 UNV Ketorolac Tromethamine (Toradol 30mg Vial) 30 mg 1X ONCE 10/27/19 07:15 10/27/19 07:16 DC 10/27/19 07:34 30 MG Lorazepam (Ativan Inj) 1 mg 1X ONCE 10/27/19 07:15 10/27/19 07:16 DC 10/27/19 07:33 1 MG Metoclopramide HCl (Reglan Vial) 10 mg 1X ONCE 10/27/19 07:15 10/27/19 07:16 DC 10/27/19 07:34 10 MG Sodium Chloride 1,000 ml @ 1,000 mls/hr 1X ONCE 10/27/19 07:15 10/27/19 08:14 10/27/19 07:32 1,000 MLS/HR Allergies: Allergies: Allergies Coded Allergies Type Severity Reaction Last Updated Verified shrimp Allergy Intermediate 11/26/16 Yes Physical Exam: PE: Constitutional: Well developed, well nourished, mild to moderate distress, non- toxic appearance. [] HENT: Normocephalic, atraumatic, bilateral external ears normal, oropharynx moist, no oral exudates, nose normal. [] Eyes: PERRLA, EOMI, conjunctiva normal, no discharge. [] Neck: Normal range of motion, no tenderness, supple, no stridor. [] Cardiovascular:Heart rate regular rhythm, no murmur [] Lungs & Thorax: Bilateral breath sounds clear to auscultation [] Abdomen: Bowel sounds normal, soft, no tenderness, no masses, no pulsatile masses. [] Skin: Warm, dry, no erythema, no rash. [] Back: No tenderness, no CVA tenderness. [] Extremities: No tenderness, no cyanosis, no clubbing, ROM intact, no edema. [] Neurologic: Alert and oriented X 3, normal motor function, normal sensory function, no focal deficits noted. [] Psychologic: Extremely anxious [] Current Patient Data: Labs: Laboratory Tests Test 10/27/19 07:06 10/27/19 07:28 White Blood Count 8.5 x10^3/uL (4.0-11.0) Red Blood Count 5.78 x10^6/uL (3.50-5.40) H Hemoglobin 16.1 g/dL (12.0-15.5) H Hematocrit 47.9 % (36.0-47.0) H Mean Corpuscular Volume 83 fL (79-100) Mean Corpuscular Hemoglobin 28 pg (25-35) Mean Corpuscular Hemoglobin Concent 34 g/dL (31-37) Red Cell Distribution Width 13.9 % (11.5-14.5) Platelet Count 189 x10^3/uL (140-400) Neutrophils (%) (Auto) 57 % (31-73) Lymphocytes (%) (Auto) 34 % (24-48) Monocytes (%) (Auto) 6 % (0-9) Eosinophils (%) (Auto) 2 % (0-3) Basophils (%) (Auto) 1 % (0-3) Neutrophils # (Auto) 4.9 x10^3/uL (1.8-7.7) Lymphocytes # (Auto) 2.9 x10^3/uL (1.0-4.8) Monocytes # (Auto) 0.5 x10^3/uL (0.0-1.1) Eosinophils # (Auto) 0.1 x10^3/uL (0.0-0.7) Basophils # (Auto) 0.1 x10^3/uL (0.0-0.2) Sodium Level 139 mmol/L (136-145) Potassium Level 4.1 mmol/L (3.5-5.1) Chloride Level 99 mmol/L (98-107) Carbon Dioxide Level 27 mmol/L (21-32) Anion Gap 13 (6-14) Blood Urea Nitrogen 9 mg/dL (7-20) Creatinine 0.9 mg/dL (0.6-1.0) Estimated GFR (Cockcroft-Gault) 68.3 BUN/Creatinine Ratio 10 (6-20) Glucose Level 497 mg/dL (70-99) H Calcium Level 9.6 mg/dL (8.5-10.1) Magnesium Level 1.9 mg/dL (1.8-2.4) Total Bilirubin 0.6 mg/dL (0.2-1.0) Aspartate Amino Transferase (AST) 17 U/L (15-37) Alanine Aminotransferase (ALT) 36 U/L (14-59) Alkaline Phosphatase 116 U/L (46-116) Troponin I Quantitative < 0.017 ng/mL (0.000-0.055) FT-Xsn-P-Type Natriuretic Peptide 155 pg/mL (0-124) H Total Protein 7.6 g/dL (6.4-8.2) Albumin 3.8 g/dL (3.4-5.0) Albumin/Globulin Ratio 1.0 (1.0-1.7) Ethyl Alcohol Level < 10 mg/dL (0-10) Urine Collection Type Unknown Urine Color Yellow Urine Clarity Clear Urine pH 5.5 (<5.0-8.0) Urine Specific [place] >=1.030 (1.000-1.030) Urine Protein Negative mg/dL (NEG-TRACE) Urine Glucose (UA) >=1000 mg/dL (NEG) Urine Ketones (Stick) Negative mg/dL (NEG) Urine Blood Negative (NEG) Urine Nitrite Negative (NEG) Urine Bilirubin Negative (NEG) Urine Urobilinogen Dipstick 0.2 mg/dL (0.2 mg/dL) Urine Leukocyte Esterase Negative (NEG) Urine RBC 0 /HPF (0-2) Urine WBC 0 /HPF (0-4) Urine Squamous Epithelial Cells Few /LPF Urine Bacteria 0 /HPF (0-FEW) Urine Opiates Screen Neg (NEG) Urine Methadone Screen Neg (NEG) Urine Barbiturates Neg (NEG) Urine Phencyclidine Screen Neg (NEG) Urine Amphetamine/Methamphetamine Neg (NEG) Urine Benzodiazepines Screen Neg (NEG) Urine Cocaine Screen Neg (NEG) Urine Cannabinoids Screen Neg (NEG) Urine Ethyl Alcohol Neg (NEG) Laboratory Tests 10/27/19 07:06 Laboratory Tests 10/27/19 07:06 Vital Signs: Vital Signs Date Time Temp Pulse Resp B/P (MAP) Pulse Ox O2 Delivery O2 Flow Rate FiO2 10/27/19 07:00 98.6 103 20 164/104 (124) 100 Room Air 98.6 EKG: EKG: EKG: Sinus tachycardia rate of [address]-T changes [] Radiology/Procedures: Radiology/Procedures: []STATUS: REG ERORD. PHYSICIAN: RENZO SKINNER DO REASON: chest pain PROCEDURE: CHEST AP ONLY INDICATION: Chest pain COMPARISON: April 2018 FINDINGS: Single view of chest obtained. No focal airspace consolidation or pulmonary edema. Cardiac silhouette is unremarkable. No pneumothorax is seen. IMPRESSION: * No focal airspace consolidation or edema. Course & Med Decision Making: Course & Med Decision Making Pertinent Labs and Imaging studies reviewed. (See chart for details) [ED course: Evaluation reveals a very anxious 43-year-old female with some atypical sounding chest pain. The pain has been ongoing for a couple of days her troponin is negative and her EKG is essentially unremarkable. I doubt this has any relation to her heart. She also had a classic migraine headache that has been uncontrolled over the last couple of days. She was given IV fluids, Toradol, Reglan and Benadryl with complete resolution of her headache. Also gave her some Ativan IV which did help with her anxiety. Her blood sugar was almost 500 but no signs of diabetic ketoacidosis so she was offered insulin subcu but refused stating she would take her medication at home. ] Kerri Disclaimer: Kerri Disclaimer: This electronic medical record was generated, in whole or in part, using a voice recognition dictation system. Departure Departure Impression: Primary Impression: Chest pain, non-cardiac Additional Impressions: Hyperglycemia Migraine Qualified Codes: G43.901 - Migraine, unspecified, not intractable, with status migrainosus Anxiety about health Disposition: HOME, SELF-CARE Condition: IMPROVED Referrals: UNKNOWN PCP NAME (PCP) Patient Instructions: 2400 Calorie Diet for Diabetes Meal Planning, Anxiety and Panic Attacks, Chest Pain (Nonspecific), Hyperglycemia, Migraine Headache Additional Instructions: Please take your diabetic medication as prescribed. Return to the emergency department with any new or concerning symptoms Scripts Metoclopramide Hcl (REGLAN) 10 Mg Tablet 1 TAB PO Q8HRS PRN for migraine, #30 TAB Take 25 mg of Benadryl with each dose Prov: RENZO SKINNER DO 10/27/19 RENZO SKINNER DO Oct 27, 2019 08:10
[2019-10-27 08:13] VITALS: BP 133/74
[2019-10-27] MEDS ORDERED: METO10TA81 PO (08:15)
[2019-10-27] MEDS ORDERED: INSULIN REGULAR 100 UNIT/ML 3ML VIAL. SQ ONE (08:15)
--- NOTE | 2019-10-27 15:46 | EKG ---
[facility] [address] [place] [address] Test Date: 2019-10-27 Test Time: 07:01:31 Pat Name: NILDA VENEGAS Department: Room: Gender: F Sourcing Assistant: : 1975 Requested By: RENZO SKINNER Order Number: [id number] Reading MD: Elder Elliott Measurements Intervals [place] Rate: 105 P: 35 ID: [id number] QRS: 42 QRSD: 86 T: 45 QT: 324 QTc: 432 Interpretive Statements SINUS TACHYCARDIA Electronically Signed On 10-28-2019 20:14:25 CDT by Elder Elliott
== END 2019-10-27 08:37 | disposition home or self-care (01) ==
LOC: ER 06:54
DX: R07.89 Other chest pain (principal); G43.901 Migraine, unspecified, not intractable, with status migrainosus; E11.65 Type 2 diabetes mellitus with hyperglycemia; F41.9 Anxiety disorder, unspecified; F32.9 Major depressive disorder, single episode, unspecified; I10 Essential (primary) hypertension; I25.2 Old myocardial infarction; G89.29 Other chronic pain; K80.20 Calculus of gallbladder without cholecystitis without obstruction; F17.200 Nicotine dependence, unspecified, uncomplicated; Z90.710 Acquired absence of both cervix and uterus; Z90.49 Acquired absence of other specified parts of digestive tract; Z91.013 Allergy to seafood
CPT/HCPCS: 36415; 71045; 80053; 80307; 81001; 83735; 83880; 84484; 85025; 93005; 96361; 96374; 96375; 99285; G0480; J1200; J1885; J2060; J2765; J7030

== ENCOUNTER 2020-01-21 15:31 | Observation (INO) | payer OTHER ==
[~2020-01-21] VITALS: Ht 172.7 cm; Wt 95.1 kg
[~2020-01-21 15:31] MED LIST changes: +METO10TA81 PO
--- NOTE | 2020-01-21 16:01 | EKG ---
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
[2020-01-21 16:10] LABS: BASO # 0.1 x10^3/uL (0.0-0.2); BASO % 1 % (0-3); EOS # 0.1 x10^3/uL (0.0-0.7); EOS % 2 % (0-3); HEMATOCRIT 41.1 % (36.0-47.0); HEMOGLOBIN 14.4 g/dL (12.0-15.5); LYMPH # 3.1 x10^3/uL (1.0-4.8); LYMPH % 35 % (24-48); MEAN CORPUSCULAR HEMOGLOBIN 29 pg (25-35); MEAN CORPUSCULAR HGB CONC 35 g/dL (31-37); MEAN CORPUSCULAR VOLUME 84 fL (79-100); MONO # 0.6 x10^3/uL (0.0-1.1); MONO % 7 % (0-9); NEUT % 56 % (31-73); PLATELET COUNT 201 x10^3/uL (140-400); RED BLOOD COUNT 4.92 x10^6/uL (3.50-5.40); RED CELL DISTRIBUTION WIDTH 14.4 % (11.5-14.5); WHITE BLOOD COUNT 8.9 x10^3/uL (4.0-11.0)
[2020-01-21 16:34] LABS: CALCIUM 9.2 mg/dL (8.5-10.1); GFR 60.2; POTASSIUM 3.9 mmol/L (3.5-5.1)
--- NOTE | 2020-01-21 16:34 | RAD ---
CT HEAD WITHOUT CONTRAST 01/21/2020 3:53 PM Indication: Reason: right side paresthesias / Spl. Instructions: / History: Comparison: None available Procedure: Multidetector CT imaging of the head was performed without the administration of contrast. Findings: There is no evidence of acute intracranial hemorrhage. There is no evidence of acute territorial infarction. Please note that CT is limited for evaluation of acute ischemia. No mass effect or midline shift is identified . The ventricles and basilar cisterns have an appropriate appearance. No abnormal extra-axial fluid collections are seen. No acute osseous changes are identified. Impression: No evidence of acute intracranial abnormality CT DOSING PQRS STATEMENT: One or more of the following individualized dose reduction techniques were utilized for this examination: 1. Automated exposure control 2. Adjustment of the mA and/or kV according to patient size 3. Use of iterative reconstruction technique Electronically signed by: Nikolas Dias MD (01/21/2020 4:30 PM) [id number]
[2020-01-21 16:42] LABS: ALBUMIN 3.6 g/dL (3.4-5.0); ALBUMIN/GLOBULIN RATIO 0.9 (1.0-1.7); MAGNESIUM 1.9 mg/dL (1.8-2.4); TOTAL BILIRUBIN 0.6 mg/dL (0.2-1.0); TOTAL PROTEIN 7.7 g/dL (6.4-8.2)
[2020-01-21] MEDS ORDERED: INSULIN LISPRO 300 UNITS/3 ML VIAL. SQ SCH (17:00)
[2020-01-21] MEDS ORDERED: ASPIRIN CHEWABLE 81 MG TABLET. PO ONE (17:00)
[2020-01-21] MEDS ORDERED: ACETAMINOPHEN 325 MG TABLET. PO PRN ×2 (17:00)
[2020-01-21] MEDS ORDERED: ASPIRIN RECTAL 300 MG SUPP. PR PRN (17:00)
[2020-01-21] MEDS ORDERED: DOCUSATE SODIUM 100 MG CAPSULE. PO PRN (17:00)
[2020-01-21] MEDS ORDERED: ONDANSETRON PF 4 MG/2 ML VIAL. IV PRN (17:00)
[2020-01-21] MEDS ORDERED: DEXTROSE 50% 25 GM / 50ML DISP.SYRIN. IV PRN ×2 (17:00→18:30)
[2020-01-21] MEDS ORDERED: BISACODYL 5 MG TABLET.DR. PO PRN (17:00)
[2020-01-21] MEDS ORDERED: LABETALOL 20 MG/4 ML DISP.SYRIN. IVP PRN (17:00)
[2020-01-21] MEDS ORDERED: ONDANSETRON PF 4 MG/2 ML VIAL. IV ONE (17:00)
[2020-01-21] MEDS ORDERED: ACETAMINOPHEN 650 MG SUPP.RECT. PR PRN (17:00)
[2020-01-21] MEDS ORDERED: fentaNYL PF VIAL 100 MCG/2 ML VIAL IV ONE (17:00)
--- NOTE | 2020-01-21 17:05 | PHYS DOC ---
Past Medical History Past Medical History: Anxiety, Depression, Diabetes-Type II, Gallstones, Hypertension, [place], Other Additional Past Medical Histor: fibroid tumors,Chronic abdominal pain,NEUROPATHY,CHRONIC NECK PAIN Past Surgical History: Cholecystectomy, Hysterectomy Additional Past Surgical Histo: carpal tunnel,R elbow,D&C Smoking Status: Current Every Day Smoker Additional Information: 0.25 PPD Alcohol Use: None Drug Use: None General Adult EDM: Chief Complaint: NEURO SYMPTOMS/DEFICITS HPI: HPI: Patient is a 44-year-old female that is a poorly controlled diabetic who presents with a one-week history of right-sided numbness. She states this is been progressive over the last week. She states now she is having a hard time walking her right leg gives out. She was seen by her primary care physician and sent here today over concern that she may have had a stroke. She denies a headache. She denies any visual changes. She does admit that her diabetes has been very poorly controlled. [] Review of Systems: Review of Systems: Constitutional: Denies fever or chills. [] Eyes: Denies change in visual acuity. [] HENT: Denies nasal congestion or sore throat. [] Respiratory: Denies cough or shortness of breath. [] Cardiovascular: Denies chest pain or edema. [] GI: Denies abdominal pain, nausea, vomiting, bloody stools or diarrhea. [] : Denies dysuria. [] Musculoskeletal: Denies back pain or joint pain. [] Integument: Denies rash. [] Neurologic: Per HPI [] Endocrine: Denies polyuria or polydipsia. [] Lymphatic: Denies swollen glands. [] Psychiatric: Reports anxiety [] Heart Score: Risk Factors: Risk Factors: DM, Current or recent (<one month) smoker, HTN, HLP, family history of CAD, obesity. Risk Scores: Score 0 - 3: 2.5% MACE over next 6 weeks - Discharge Home Score 4 - 6: 20.3% MACE over next 6 weeks - Admit for Clinical Observation Score 7 - 10: 72.7% MACE over next 6 weeks - Early Invasive Strategies Current Medications: Current Medications Medications (Trade) Dose Ordered Sig/Dominique Start Time Stop Time Status Last Admin Dose Admin Acetaminophen (Tylenol Supp) 650 mg PRN Q4HRS PRN 01/21/20 17:00 UNV Acetaminophen (Tylenol) 650 mg PRN Q4HRS PRN 01/21/20 17:00 01/22/20 16:59 UNV Aspirin (Aspirin Chewable) 324 mg 1X ONCE 01/21/20 17:00 01/21/20 17:01 Aspirin (Aspirin Rectal Supp) 300 mg PRN DAILY PRN 01/21/20 17:00 UNV Aspirin (Ecotrin) 325 mg DAILYWBKFT 01/22/20 08:00 UNV Bisacodyl (Dulcolax Tab) 10 mg PRN DAILY PRN 01/21/20 17:00 UNV Dextrose (Dextrose 50%-Water Syringe) 12.5 gm PRN Q15MIN PRN 01/21/20 17:00 UNV Docusate Sodium (Colace) 100 mg PRN DAILY PRN 01/21/20 17:00 UNV Enoxaparin Sodium (Lovenox 40mg Syringe) 40 mg Q24H 01/21/20 17:00 UNV Famotidine (Pepcid) 20 mg BID 01/21/20 21:00 UNV Fentanyl Citrate (Fentanyl 2ml Vial) 50 mcg 1X ONCE 01/21/20 17:00 01/21/20 17:01 Insulin Human Lispro (HumaLOG) 0-7 UNITS TIDWMEALS 01/21/20 17:00 UNV Labetalol HCl (Normodyne Iv Push) 10 mg PRN Q10MIN PRN 01/21/20 17:00 UNV Ondansetron HCl (Zofran) 4 mg PRN Q8HRS PRN 01/21/20 17:00 01/22/20 16:59 UNV Allergies: Allergies: Allergies Coded Allergies Type Severity Reaction Last Updated Verified shrimp Allergy Intermediate 11/26/16 Yes Physical Exam: PE: Constitutional: Well developed, well nourished, no acute distress, non-toxic samra earance. [] HENT: Normocephalic, atraumatic, bilateral external ears normal, oropharynx moist, no oral exudates, nose normal. [] Eyes: PERRLA, EOMI, conjunctiva normal, no discharge. [] Neck: Normal range of motion, no tenderness, supple, no stridor. [] Cardiovascular:Heart rate regular rhythm, no murmur [] Lungs & Thorax: Bilateral breath sounds clear to auscultation [] Abdomen: Bowel sounds normal, soft, no tenderness, no masses, no pulsatile masses. [] Skin: Warm, dry, no erythema, no rash. [] Back: No tenderness, no CVA tenderness. [] Extremities: No tenderness, no cyanosis, no clubbing, ROM intact, no edema. [] Neurologic: Alert and oriented X 3, normal motor function, diminished light touch to right lower extremity. [] Psychologic: Very anxious. [] Current Patient Data: Labs: Laboratory Tests Test 01/21/20 15:47 01/21/20 16:00 Glucose (Fingerstick) 332 mg/dL (70-99) H White Blood Count 8.9 x10^3/uL (4.0-11.0) Red Blood Count 4.92 x10^6/uL (3.50-5.40) Hemoglobin 14.4 g/dL (12.0-15.5) Hematocrit 41.1 % (36.0-47.0) Mean Corpuscular Volume 84 fL (79-100) Mean Corpuscular Hemoglobin 29 pg (25-35) Mean Corpuscular Hemoglobin Concent 35 g/dL (31-37) Red Cell Distribution Width 14.4 % (11.5-14.5) Platelet Count 201 x10^3/uL (140-400) Neutrophils (%) (Auto) 56 % (31-73) Lymphocytes (%) (Auto) 35 % (24-48) Monocytes (%) (Auto) 7 % (0-9) Eosinophils (%) (Auto) 2 % (0-3) Basophils (%) (Auto) 1 % (0-3) Neutrophils # (Auto) 5.0 x10^3/uL (1.8-7.7) Lymphocytes # (Auto) 3.1 x10^3/uL (1.0-4.8) Monocytes # (Auto) 0.6 x10^3/uL (0.0-1.1) Eosinophils # (Auto) 0.1 x10^3/uL (0.0-0.7) Basophils # (Auto) 0.1 x10^3/uL (0.0-0.2) Sodium Level 137 mmol/L (136-145) Potassium Level 3.9 mmol/L (3.5-5.1) Chloride Level 101 mmol/L (98-107) Carbon Dioxide Level 26 mmol/L (21-32) Anion Gap 10 (6-14) Blood Urea Nitrogen 11 mg/dL (7-20) Creatinine 1.0 mg/dL (0.6-1.0) Estimated GFR (Cockcroft-Gault) 60.2 BUN/Creatinine Ratio 11 (6-20) Glucose Level 361 mg/dL (70-99) H Calcium Level 9.2 mg/dL (8.5-10.1) Magnesium Level 1.9 mg/dL (1.8-2.4) Total Bilirubin 0.6 mg/dL (0.2-1.0) Aspartate Amino Transferase (AST) 34 U/L (15-37) Alanine Aminotransferase (ALT) 48 U/L (14-59) Alkaline Phosphatase 104 U/L (46-116) Creatine Kinase 51 U/L (26-192) Troponin I Quantitative < 0.017 ng/mL (0.000-0.055) Total Protein 7.7 g/dL (6.4-8.2) Albumin 3.6 g/dL (3.4-5.0) Albumin/Globulin Ratio 0.9 (1.0-1.7) L Thyroid Stimulating Hormone (TSH) 1.357 uIU/mL (0.358-3.74) Ethyl Alcohol Level < 10 mg/dL (0-10) Laboratory Tests 01/21/20 16:00 Laboratory Tests 01/21/20 16:00 Vital Signs: Vital Signs Date Time Temp Pulse Resp B/P (MAP) Pulse Ox O2 Delivery O2 Flow Rate FiO2 01/21/20 15:42 98.2 118 20 153/79 (103) 100 Room Air 98.2 EKG: EKG: [] Radiology/Procedures: Radiology/Procedures: []PROCEDURE: CT HEAD WO CONTRAST CT HEAD WITHOUT CONTRAST 01/21/2020 3:53 PM Indication: Reason: right side paresthesias / Spl. Instructions: / History: Comparison: None available Procedure: Multidetector CT imaging of the head was performed without the administration of contrast. Findings: There is no evidence of acute intracranial hemorrhage. There is no evidence of acute territorial infarction. Please note that CT is limited for evaluation of acute ischemia. No mass effect or midline shift is identified . The ventricles and basilar cisterns have an appropriate appearance. No abnormal extra-axial fluid collections are seen. No acute osseous changes are identified. Impression: No evidence of acute intracranial abnormality Course & Med Decision Making: Course & Med Decision Making Pertinent Labs and Imaging studies reviewed. (See chart for details) [ED course: Evaluation reveals a 44-year-old female with right-sided paresthesias and some subjective weakness. Her CT scan was unremarkable she was given an aspirin during her stay in the department. She also has a lot of chronic pain I treated that with IV fentanyl. I believe she needs to be placed in the hospital to have her diabetic regimen evaluated her neuro symptoms evaluated and a stroke ruled out. I spoke with the hospitalist who agrees to accept patient for admission.] Kerri Disclaimer: Kerri Disclaimer: This electronic medical record was generated, in whole or in part, using a voice recognition dictation system. Departure Departure Impression: Primary Impression: CVA (cerebral vascular accident) Qualified Codes: I63.9 - Cerebral infarction, unspecified Additional Impressions: Poorly controlled diabetes mellitus Diabetic neuropathy Qualified Codes: E11.42 - Type 2 diabetes mellitus with diabetic polyneuropathy Disposition: ADMITTED INPATIENT Admitting Physician: ASHISH Condition: STABLE Referrals: UNKNOWN PCP NAME (PCP) Justicifation of Admission Dx: Justifications for Admission: Justification of Admission Dx: Yes Stroke - Ischemic: Stroke-Ischemic RENZO SKINNER DO Jan 21, 2020 17:05
[2020-01-21 17:08] LABS: PROTHROMBIN TIME PATIENT 13.4 SEC (11.7-14.0)
[2020-01-21 17:12] LABS: BILIRUBIN,URINE NEGATIVE (NEG); CLARITY,URINE CLEAR; COLOR,URINE YELLOW; NITRITE,URINE POSITIVE (NEG); PH,URINE 5.5 (<5.0-8.0); PROTEIN,URINE NEGATIVE (NEG-TRACE); UROBILINOGEN,URINE 0.2 mg/dL (0.2 mg/dL)
[2020-01-21 17:19] LABS: BARBITURATES NEG (NEG); BENZODIAZEPINES NEG (NEG); CANNABINOIDS NEG (NEG); COCAINE NEG (NEG); METHADONE NEG (NEG); OPIATES NEG (NEG); PHENCYCLIDINE NEG (NEG)
[2020-01-21 17:20] LABS: AMPHETAMINE/METHAMPHETAMINE NEG (NEG)
[2020-01-21 17:33] LABS: BACTERIA,URINE MANY /HPF (0-FEW); SQUAMOUS EPITHELIAL CELL,UR FEW /LPF; WBC,URINE 20-40 /HPF (0-4)
--- NOTE | 2020-01-21 18:31 | PDOC1 ---
History and Physical Date of Admission Date of Admission DATE: 01/21/20 TIME: 18:31 Identification/Chief Complaint Chief Complaint Right sided numbness Source Source: Patient History of Present Illness History of Present Illness Ms Ye is a 44yo F w/ PMHx Anxiety, Depression, Diabetes-Type II, Gallstones, Hypertension, CAD, chronic abdominal pain, neuropathy, and smoker who presents with a one-week history of right-sided numbness. She states this is been progressive over the last week. She states now she is having a hard time walking her right leg gives out. She was seen by her primary care physician and sent here today over concern that she may have had a stroke. She denies a headache. She denies any visual changes. She does admit that her diabetes has been very poorly controlled. She notes worsening unsteadiness with her gait and has been falling at home recently, notes no injuries with her falls. She notes her blood sugar has been >500mg/dL regularly and was changed to 50U TID lispro and 150u levemir BID. She has brought her insulin with her. It is noted to be both at room temperature and . CT head negative for infarct or mass. CBC and CMP unremarkable except for glucose of 361 mg/dL. UA with positive nitrites. Admitted for further observation and care. Past Medical History Cardiovascular: HTN, Hyperlipidemia Pulmonary: No pertinent hx CENTRAL NERVOUS SYSTEM: Periperal neuropathy GI: GERD Heme/Onc: Cancer Hepatobiliary: Cholelithiasis Psych: Anxiety, Depression Musculoskeletal: low back pain Rheumatologic: Fibromyalgia Infectious disease: No pertinent hx Renal/: Other Endocrine: Diabetes Past Surgical History Past Surgical History: Cholecystectomy, Other Family History Family History: Coronary Artery Disease Social History Smoke: <1 pack per day ALCOHOL: none Drugs: None Current Problem List Problem List Problems Medical Problems: (1) CVA (cerebral vascular accident) Status: Acute (2) Diabetic neuropathy Status: Acute (3) Poorly controlled diabetes mellitus Status: Acute Current Medications Current Medications Current Medications Fentanyl Citrate (Fentanyl 2ml Vial) 50 mcg 1X ONCE IV Last administered on 01/21/20at 17:10; Start 01/21/20 at 17:00; Stop 01/21/20 at 17:01; Status DC Ondansetron HCl (Zofran) 4 mg 1X ONCE IV Last administered on 01/21/20at 17:09; Start 01/21/20 at 17:00; Stop 01/21/20 at 17:01; Status DC Aspirin (Aspirin Chewable) 324 mg 1X ONCE PO Last administered on 01/21/20at 17:09; Start 01/21/20 at 17:00; Stop 01/21/20 at 17:01; Status DC Enoxaparin Sodium (Lovenox 40mg Syringe) 40 mg Q24H SQ ; Start 01/21/20 at 21:00 Labetalol HCl (Normodyne Iv Push) 10 mg PRN Q10MIN PRN IVP HTN SEE PARAMETERS; Start 01/21/20 at 17:00 Acetaminophen (Tylenol) 650 mg PRN Q6HRS PRN PO TEMP > 100.4F; Start 01/21/20 at 17:00 Acetaminophen (Tylenol Supp) 650 mg PRN Q4HRS PRN MS TEMP > 100.4F; Start 01/21/20 at 17:00 Bisacodyl (Dulcolax Tab) 10 mg PRN DAILY PRN PO CONSTIPATION; Start 01/21/20 at 17:00 Docusate Sodium (Colace) 100 mg PRN DAILY PRN PO HARD STOOLS; Start 01/21/20 at 17:00 Famotidine (Pepcid) 20 mg BID PO ; Start 01/21/20 at 21:00 Aspirin (Ecotrin) 325 mg DAILYWBKFT PO ; Start 01/22/20 at 08:00 Aspirin (Aspirin Rectal Supp) 300 mg PRN DAILY PRN MS IF UNABLE TO TAKE PO; Start 01/21/20 at 17:00 Ondansetron HCl (Zofran) 4 mg PRN Q8HRS PRN IV NAUSEA/VOMITING; Start 01/21/20 at 17:00; Stop 01/22/20 at 16:59 Acetaminophen (Tylenol) 650 mg PRN Q4HRS PRN PO FEVER > 100.3'F; Start 01/21/20 at 17:00; Stop 01/21/20 at 17:39; Status DC Insulin Human Lispro (HumaLOG) 0-7 UNITS TIDWMEALS SQ Last administered on 01/21/20at 18:03; Start 01/21/20 at 17:00 Dextrose (Dextrose 50%-Water Syringe) 12.5 gm PRN Q15MIN PRN IV SEE COMMENTS; Start 01/21/20 at 17:00 Non-Formulary Medication (Insulin Detemir (Levemir)) 50 unit BID SQ ; Start 01/21/20 at 21:00; Status UNV Non-Formulary Medication (Insulin Lispro (Humalog)) 25 unit TIDBFRMEAL SQ ; Start 01/22/20 at 07:30; Status UNV Insulin Human Lispro (HumaLOG) 0-9 UNITS TIDACHC SQ ; Start 01/21/20 at 21:00; Status UNV Dextrose (Dextrose 50%-Water Syringe) 12.5 gm PRN Q15MIN PRN IV SEE COMMENTS; Start 01/21/20 at 18:30; Status UNV Active Scripts Active Reglan (Metoclopramide Hcl) 10 Mg Tablet 1 Tab PO Q8HRS PRN Take 25 mg of Benadryl with each dose Diflucan (Fluconazole) 150 Mg Tablet 1 Tab PO ONCE Keflex (Cephalexin) 500 Mg Capsule 1 Cap PO TID [place] 5-325 Tablet (Acetaminophen/Hydrocodone Bitart) 1 Each Tablet 0.5-1 Tab PO PRN Q6HRS PRN Naproxen 500 Mg Tablet 1 Tab PO BID [place] 5-325 Tablet (Acetaminophen/Hydrocodone Bitart) 1 Each Tablet 1 Tab PO Q6HRS Gabapentin (Gabapentin) 300 Mg Capsule 300 Mg PO TID Diflucan (Fluconazole) 150 Mg Tablet 1 Tab PO ONCE Tylenol With Codeine #3 Tablet (Acetaminophen/Codeine Phosphate) 1 Each Tablet 1 Tab PO PRN Q6HRS PRN 2 Days Macrodantin (Nitrofurantoin Macrocrystal) 100 Mg Capsule 1 Cap PO BID Diflucan (Fluconazole) 150 Mg Tablet 1 Tab PO ONCE Flagyl (Metronidazole) 500 Mg Tablet 1 Tab PO BID Amoxicillin 500 Mg Tablet 1 Tab PO TID Diflucan (Fluconazole) 150 Mg Tablet 1 Tab PO ONCE Cadet 5-325 Tablet (Acetaminophen/Hydrocodone Bitart) 1 Each Tablet 1 Tab PO BID Erythromycin (Erythromycin Base) 1 Gm Oint...g. 1 Savage OP Q4HRS W/A apply to the affected eye as directed Diflucan (Fluconazole) 100 Mg Tablet 100 Mg PO DAILY Naprosyn (Naproxen) 500 Mg Tablet 500 Mg PO BID PRN Cyclobenzaprine Hcl 10 Mg Tablet 10 Mg PO TID PRN Zofran (Ondansetron Hcl) 4 Mg Tablet 1 Tab PO Q8HRS PRN Oxycodone-Acetaminophen 5-325 (Oxycodone Hcl/Acetaminophen) 1 Each Tablet 1 Tab PO PRN Q4HRS PRN Amitiza (Lubiprostone) 8 Mcg Capsule 8 Mcg PO BIDWMEALS Reported Prozac (Fluoxetine Hcl) 40 Mg Capsule 1 Cap PO DAILY Quetiapine Fumarate 50 Mg Tablet 50 Mg PO PRN TID PRN Clonazepam (Clonazepam) 0.5 Mg Tablet 1 Tab PO BID Cozaar (Losartan Potassium) 25 Mg Tablet 25 Mg PO DAILY Abilify (Aripiprazole) 15 Mg Tablet 15 Mg PO DAILY Trazodone Hcl 50 Mg Tablet 1 Tab PO PRN QHS PRN Metformin HCl ER (Metformin HCl) 1,000 Mg [id number] 1,000 Mg PO DAILY Gabapentin 600 Mg Tablet 600 Mg PO TID Humalog (Insulin Lispro) 100 Unit/1 Ml Cartridge 50 Unit SQ TIDBFRMEAL Levemir (Insulin Detemir) 100 Unit/1 Ml Vial 50 Unit SQ BID Allergies Allergies: Coded Allergies: shrimp (Verified Allergy, Intermediate, 11/26/16) ROS General: YES: Fatigue, Malaise; No: Chills, Night Sweats, Appetite, Other PSYCHOLOGICAL ROS: YES: Anxiety, Behavioral Disorder; No: Concentration difficultie, Decreased libido, Depression, Disorientation, Hallucinations, Hostility, Irritablity, Memory difficulties, Mood Swings, Obsessive thoughts, Physical abuse, Sexual abuse, Sleep disturbances, Suicidal ideation, Other Eyes: Yes Blurry vision; No Decreased vision, No Double vision, No Dry eyes, No Excessive tearing, No Eye Pain, No Itchy Eyes, No Loss of vision, No Photophobia, No Scotomata, No Uses contacts, No Uses glasses, No Other HEENT: YES: Heacaches; No: Visual Changes, Hearing change, Nasal congestion, Nasal discharge, Oral lesions, Sinus pain, Sore Throat, Epistaxis, Sneezing, Snoring, Tinnitus, Vertigo, Vocal changes, Other ALLERGY AND IMMUNOLOGY: No: Hives, Insect Bite Sensitivity, Itchy/Watery Eyes, Nasal Congestion, Post Nasal Drip, Seasonal Allergies, Other Hematological and Lymphatic: No: Bleeding Problems, Blood Clots, Blood Transfusions, Brusing, Night Sweats, Pallor, Swollen Lymph Nodes, Other ENDOCRINE: No: Breast Changes, Galactorrhea, Hair Pattern Changes, Hot Flashes, Malaise/lethargy, Mood Swings, Palpitations, Polydipsia/polyuria, Skin Changes, Temperature Intolerance, Unexpected Weight Changes, Other Breast: No New/Changing Breast Lumps, No Nipple changes, No Nipple discharge, No Other Respiratory: No: Cough, Hemoptysis, Orthopnea, Pleuritic Pain, Shortness of breath, SOB with excertion, Sputum Changes, Stridor, Tachypnea, Wheezing, Other Cardiovascular: No Chest Pain, No Palpitations, No Orthopnea, No Paroxysmal Noc. Dyspnea, No Edema, No Lt Headedness, No Other Gastrointestinal: No Nausea, No Vomiting, No Abdominal Pain, No Diarrhea, No Constipation, No Melena, No Hematochezia, No Other Genitourinary: YES Dysuria, YES Frequency; No Incontinence, No Hematuria, No Retention, No Discharge, No Urgency, No Pain, No Flank Pain, No Other, No , No , No , No , No , No , No Musculoskeletal: Yes Gait Disturbance, Yes Muscular Weakness; No Joint Pain, No Joint Stiffness, No Joint Swelling, No Muscle Pain, No Pain In:, No Swelling In:, No Other Neurological: Yes Gait Disturbance, Yes Impaired Coord/balance, Yes Numbness/Tingling; No Behavorial Changes, No Bowel/Bladder ControlChng, No Confusion, No Dizziness, No Headaches, No Memory Loss, No Seizures, No Speech Problems, No Tremors, No Visual Changes, No Weakness, No Other Skin: No Dry Skin, No Eczema, No Hair Changes, No Lumps, No Mole Changes, No Mottling, No Nail Changes, No Pruritus, No Rash, No Skin Lesion Changes, No Other, No Acne Physical Exam General: Alert, Oriented X3, Cooperative, No acute distress HEENT: Atraumatic, PERRLA, EOMI, Mucous membr. moist/pink Lungs: Clear to auscultation, Normal air movement Heart: S1S2, RRR, no thrills, no rubs, no gallops, no murmurs Abdomen: Normal bowel sounds, Soft, No tenderness, No hepatosplenomegaly, No masses Rectal Exam: not examined Extremities: No clubbing, No cyanosis, No edema, Normal pulses, No tenderness/swelling Skin: No rashes, No breakdown, No significant lesion Neuro: Normal speech, Strength at 5/5 X4 ext, Normal tone, Cranial nerves 3-12 NL, Reflexes 2+, Other (Decreased sensation in glove and stocking distribution, decreased RLE sensation to pinprick and RUE to pinprick) Psych/Mental Status: Other (Anxious, circumferential) Vitals Vitals Vital Signs Date Time Temp Pulse Resp B/P (MAP) Pulse Ox O2 Delivery O2 Flow Rate FiO2 01/21/20 18:02 104 125/83 (97) 99 Room Air 01/21/20 17:40 19 01/21/20 15:42 98.2 98.2 Labs Labs Laboratory Tests Test 01/21/20 15:47 01/21/20 16:00 01/21/20 17:00 01/21/20 17:57 Glucose (Fingerstick) 332 mg/dL (70-99) 283 mg/dL (70-99) White Blood Count 8.9 x10^3/uL (4.0-11.0) Red Blood Count 4.92 x10^6/uL (3.50-5.40) Hemoglobin 14.4 g/dL (12.0-15.5) Hematocrit 41.1 % (36.0-47.0) Mean Corpuscular Volume 84 fL (79-100) Mean Corpuscular Hemoglobin 29 pg (25-35) Mean Corpuscular Hemoglobin Concent 35 g/dL (31-37) Red Cell Distribution Width 14.4 % (11.5-14.5) Platelet Count 201 x10^3/uL (140-400) Neutrophils (%) (Auto) 56 % (31-73) Lymphocytes (%) (Auto) 35 % (24-48) Monocytes (%) (Auto) 7 % (0-9) Eosinophils (%) (Auto) 2 % (0-3) Basophils (%) (Auto) 1 % (0-3) Neutrophils # (Auto) 5.0 x10^3/uL (1.8-7.7) Lymphocytes # (Auto) 3.1 x10^3/uL (1.0-4.8) Monocytes # (Auto) 0.6 x10^3/uL (0.0-1.1) Eosinophils # (Auto) 0.1 x10^3/uL (0.0-0.7) Basophils # (Auto) 0.1 x10^3/uL (0.0-0.2) Prothrombin Time 13.4 SEC (11.7-14.0) Prothromb Time International Ratio 1.1 (0.8-1.1) Sodium Level 137 mmol/L (136-145) Potassium Level 3.9 mmol/L (3.5-5.1) Chloride Level 101 mmol/L (98-107) Carbon Dioxide Level 26 mmol/L (21-32) Anion Gap 10 (6-14) Blood Urea Nitrogen 11 mg/dL (7-20) Creatinine 1.0 mg/dL (0.6-1.0) Estimated GFR (Cockcroft-Gault) 60.2 BUN/Creatinine Ratio 11 (6-20) Glucose Level 361 mg/dL (70-99) Calcium Level 9.2 mg/dL (8.5-10.1) Magnesium Level 1.9 mg/dL (1.8-2.4) Total Bilirubin 0.6 mg/dL (0.2-1.0) Aspartate Amino Transf (AST/SGOT) 34 U/L (15-37) Alanine Aminotransferase (ALT/SGPT) 48 U/L (14-59) Alkaline Phosphatase 104 U/L (46-116) Creatine Kinase 51 U/L (26-192) Troponin I Quantitative < 0.017 ng/mL (0.000-0.055) Total Protein 7.7 g/dL (6.4-8.2) Albumin 3.6 g/dL (3.4-5.0) Albumin/Globulin Ratio 0.9 (1.0-1.7) Thyroid Stimulating Hormone (TSH) 1.357 uIU/mL (0.358-3.74) Ethyl Alcohol Level < 10 mg/dL (0-10) Urine Collection Type Unknown Urine Color Yellow Urine Clarity Clear Urine pH 5.5 (<5.0-8.0) Urine Specific [place] >=1.030 (1.000-1.030) Urine Protein Negative mg/dL (NEG-TRACE) Urine Glucose (UA) >=1000 mg/dL (NEG) Urine Ketones (Stick) Negative mg/dL (NEG) Urine Blood Moderate (NEG) Urine Nitrite Positive (NEG) Urine Bilirubin Negative (NEG) Urine Urobilinogen Dipstick 0.2 mg/dL (0.2 mg/dL) Urine Leukocyte Esterase Negative (NEG) Urine RBC 3-5 /HPF (0-2) Urine WBC 20-40 /HPF (0-4) Urine Squamous Epithelial Cells Few /LPF Urine Bacteria Many /HPF (0-FEW) Urine Opiates Screen Neg (NEG) Urine Methadone Screen Neg (NEG) Urine Barbiturates Neg (NEG) Urine Phencyclidine Screen Neg (NEG) Urine Amphetamine/Methamphetamine Neg (NEG) Urine Benzodiazepines Screen Neg (NEG) Urine Cocaine Screen Neg (NEG) Urine Cannabinoids Screen Neg (NEG) Urine Ethyl Alcohol Neg (NEG) Laboratory Tests Test 01/21/20 15:47 01/21/20 16:00 01/21/20 17:00 01/21/20 17:57 Glucose (Fingerstick) 332 mg/dL (70-99) 283 mg/dL (70-99) White Blood Count 8.9 x10^3/uL (4.0-11.0) Red Blood Count 4.92 x10^6/uL (3.50-5.40) Hemoglobin 14.4 g/dL (12.0-15.5) Hematocrit 41.1 % (36.0-47.0) Mean Corpuscular Volume 84 fL (79-100) Mean Corpuscular Hemoglobin 29 pg (25-35) Mean Corpuscular Hemoglobin Concent 35 g/dL (31-37) Red Cell Distribution Width 14.4 % (11.5-14.5) Platelet Count 201 x10^3/uL (140-400) Neutrophils (%) (Auto) 56 % (31-73) Lymphocytes (%) (Auto) 35 % (24-48) Monocytes (%) (Auto) 7 % (0-9) Eosinophils (%) (Auto) 2 % (0-3) Basophils (%) (Auto) 1 % (0-3) Neutrophils # (Auto) 5.0 x10^3/uL (1.8-7.7) Lymphocytes # (Auto) 3.1 x10^3/uL (1.0-4.8) Monocytes # (Auto) 0.6 x10^3/uL (0.0-1.1) Eosinophils # (Auto) 0.1 x10^3/uL (0.0-0.7) Basophils # (Auto) 0.1 x10^3/uL (0.0-0.2) Prothrombin Time 13.4 SEC (11.7-14.0) Prothromb Time International Ratio 1.1 (0.8-1.1) Sodium Level 137 mmol/L (136-145) Potassium Level 3.9 mmol/L (3.5-5.1) Chloride Level 101 mmol/L (98-107) Carbon Dioxide Level 26 mmol/L (21-32) Anion Gap 10 (6-14) Blood Urea Nitrogen 11 mg/dL (7-20) Creatinine 1.0 mg/dL (0.6-1.0) Estimated GFR (Cockcroft-Gault) 60.2 BUN/Creatinine Ratio 11 (6-20) Glucose Level 361 mg/dL (70-99) Calcium Level 9.2 mg/dL (8.5-10.1) Magnesium Level 1.9 mg/dL (1.8-2.4) Total Bilirubin 0.6 mg/dL (0.2-1.0) Aspartate Amino Transf (AST/SGOT) 34 U/L (15-37) Alanine Aminotransferase (ALT/SGPT) 48 U/L (14-59) Alkaline Phosphatase 104 U/L (46-116) Creatine Kinase 51 U/L (26-192) Troponin I Quantitative < 0.017 ng/mL (0.000-0.055) Total Protein 7.7 g/dL (6.4-8.2) Albumin 3.6 g/dL (3.4-5.0) Albumin/Globulin Ratio 0.9 (1.0-1.7) Thyroid Stimulating Hormone (TSH) 1.357 uIU/mL (0.358-3.74) Ethyl Alcohol Level < 10 mg/dL (0-10) Urine Collection Type Unknown Urine Color Yellow Urine Clarity Clear Urine pH 5.5 (<5.0-8.0) Urine Specific [place] >=1.030 (1.000-1.030) Urine Protein Negative mg/dL (NEG-TRACE) Urine Glucose (UA) >=1000 mg/dL (NEG) Urine Ketones (Stick) Negative mg/dL (NEG) Urine Blood Moderate (NEG) Urine Nitrite Positive (NEG) Urine Bilirubin Negative (NEG) Urine Urobilinogen Dipstick 0.2 mg/dL (0.2 mg/dL) Urine Leukocyte Esterase Negative (NEG) Urine RBC 3-5 /HPF (0-2) Urine WBC 20-40 /HPF (0-4) Urine Squamous Epithelial Cells Few /LPF Urine Bacteria Many /HPF (0-FEW) Urine Opiates Screen Neg (NEG) Urine Methadone Screen Neg (NEG) Urine Barbiturates Neg (NEG) Urine Phencyclidine Screen Neg (NEG) Urine Amphetamine/Methamphetamine Neg (NEG) Urine Benzodiazepines Screen Neg (NEG) Urine Cocaine Screen Neg (NEG) Urine Cannabinoids Screen Neg (NEG) Urine Ethyl Alcohol Neg (NEG) VTE Prophylaxis Ordered VTE Prophylaxis Devices: No VTE Pharmacological Prophylaxi: Yes Assessment/Plan Assessment/Plan A/P: Right sided numbness, paresthesias - possibly CVA syndrome. BP control. ASA. consult neurology. PT/OT evaluation Gait instability - will have formal gait assessment Frequent falls - needs gait assessment by PT HTN urgency - will restart her home losartan. PRN labetalol Anxiety, Depression - cont home elavil. Has multiple meds previously. Will ensure medication reconciliation is accurate as patient does not recall all her meds Diabetes-Type II - 50U TID lispro and 150u levemir BID. She has brought her insulin with her. It is noted to be both at room temperature and . will cut her home regimen by 2/3 for now Hypertension - cont losartan CAD - on ASA 81mg daily Chronic abdominal pain - on hydrocodone BID outpatient for the past 60 days. Neuropathy - on lyrica TID as well as elavil Smoker - counseled on cessation, offered nicotine patch FEN - ADA diet PPX - lovenox FULL CODE Dispo - observation for CVA syndrome Justicifation of Admission Dx: Justifications for Admission: Justification of Admission Dx: Yes Stroke - Ischemic: Stroke-Ischemic FLORESITA LAUREANO MD Jan 21, 2020 18:31
[2020-01-21] MEDS: cefTRIAXone IV Push 1 GM VIAL. IVP SCH (18:50)
[2020-01-21] MEDS ORDERED: LOSA25TA12 PO (20:44)
[2020-01-21] MEDS ORDERED: ATOR20TA58 PO (20:44)
[2020-01-21] MEDS ORDERED: AMIT100T PO (20:44)
[2020-01-21] MEDS ORDERED: HYDROcodone/APAP 5/325MG 1 TAB TABLET PO PRN (20:45)
[2020-01-21] MEDS ORDERED: ATORVASTATIN CALCIUM 20 MG TABLET PO SCH (21:00)
[2020-01-21] MEDS ORDERED: ONDANSETRON ODT 4 MG TAB.RAPDIS. PO PRN (21:00)
[2020-01-21] MEDS ORDERED: AMITRIPTYLINE HCL 25 MG TABLET. PO SCH ×2 (21:00)
[2020-01-21] MEDS ORDERED: ENOXAPARIN 40 MG/0.4 ML SYRINGE. SQ SCH (21:00)
[2020-01-21 21:15] VITALS: BP 119/82
[2020-01-21] MEDS: FAMOTIDINE 20 MG TABLET. PO SCH (22:15)
[2020-01-21] MEDS: INSULIN GLARGINE SYRINGE. SQ SCH (22:20)
[2020-01-21] MEDS: INSULIN LISPRO 300 UNITS/3 ML VIAL. SQ SCH (22:20)
[2020-01-21 22:50] VITALS: BP 140/84
[2020-01-22 03:25] VITALS: BP 133/92
[2020-01-22 05:18] LABS: BASO % 1 % (0-3); EOS # 0.1 x10^3/uL (0.0-0.7); EOS % 2 % (0-3); HEMATOCRIT 37.8 % (36.0-47.0); LYMPH # 2.8 x10^3/uL (1.0-4.8); LYMPH % 44 % (24-48); MEAN CORPUSCULAR HEMOGLOBIN 29 pg (25-35); MEAN CORPUSCULAR HGB CONC 34 g/dL (31-37); MEAN CORPUSCULAR VOLUME 85 fL (79-100); MONO # 0.5 x10^3/uL (0.0-1.1); MONO % 7 % (0-9); NEUT % 46 % (31-73); PLATELET COUNT 157 x10^3/uL (140-400); RED BLOOD COUNT 4.47 x10^6/uL (3.50-5.40); RED CELL DISTRIBUTION WIDTH 14.3 % (11.5-14.5); WHITE BLOOD COUNT 6.4 x10^3/uL (4.0-11.0)
[2020-01-22 05:35] LABS: ALBUMIN 2.9 g/dL (3.4-5.0); ALBUMIN/GLOBULIN RATIO 0.8 (1.0-1.7); CALCIUM 8.7 mg/dL (8.5-10.1); CREATININE 0.9 mg/dL (0.6-1.0); POTASSIUM 3.9 mmol/L (3.5-5.1); TOTAL BILIRUBIN 0.4 mg/dL (0.2-1.0); TOTAL PROTEIN 6.4 g/dL (6.4-8.2)
[2020-01-22 05:39] LABS: CHOLESTEROL/HDL RATIO 6.5
[2020-01-22 07:00] VITALS: BP 117/74
[2020-01-22] MEDS ORDERED: ASPIRIN ENTERIC COATED 325 MG TABLET.DR. PO SCH (08:00)
[2020-01-22] MEDS: FAMOTIDINE 20 MG TABLET. PO SCH (08:57)
[2020-01-22] MEDS: INSULIN LISPRO 300 UNITS/3 ML VIAL. SQ SCH ×6 (08:59→17:29)
[2020-01-22] MEDS ORDERED: LOSARTAN POTASSIUM 25 MG TABLET. PO SCH (09:00)
[2020-01-22 11:00] VITALS: BP 137/88
[2020-01-22] MEDS: cefTRIAXone IV Push 1 GM VIAL. IVP SCH (11:44)
--- NOTE | 2020-01-22 11:47 | PDOC2 ---
NEUROLOGY CONSULT Date of Admission Date of Admission DATE: 01/22/20 TIME: 11:39 Reason for Consult Reason for Consult: Possible stroke Referring Physician Referring Physician: Dr. Akbar PCP: Omar Source Source: Chart review, Patient History of Present Illness History of Present Illness The patient is a 44-year-old right-handed female who came the [facility] from her physician's office because she has noticed right-sided numbness for the past week and her right knee gives out when she walks. Her sugars have been under poor control and she does have history of neuropathy. She denies any symptoms in the face. She also has anxiety and depression. There is no prior stroke, seizure, or head injury. Past Medical History Cardiovascular: HTN, SD, Hyperlipidemia Pulmonary: Asthma CENTRAL NERVOUS SYSTEM: Periperal neuropathy GI: GERD Heme/Onc: Cancer ( uterine) Hepatobiliary: Cholelithiasis Psych: Anxiety, Depression, Panic ( from) Musculoskeletal: low back pain, Other ( neck pain) Rheumatologic: Fibromyalgia, Other ( carpal tunnel syndrome) Renal/: UTI Endocrine: Diabetes Past Surgical History Past Surgical History: Cholecystectomy, Tubal Ligation, Hysterectomy Family History Family History: CAD Social History Social History Single, unemployed, smokes less than a pack of cigarettes per day, rare alcohol,drugs Current Medications Current Medications Current Medications Fentanyl Citrate (Fentanyl 2ml Vial) 50 mcg 1X ONCE IV Last administered on 01/21/20at 17:10; Start 01/21/20 at 17:00; Stop 01/21/20 at 17:01; Status DC Ondansetron HCl (Zofran) 4 mg 1X ONCE IV Last administered on 01/21/20at 17:09; Start 01/21/20 at 17:00; Stop 01/21/20 at 17:01; Status DC Aspirin (Aspirin Chewable) 324 mg 1X ONCE PO Last administered on 01/21/20at 17:09; Start 01/21/20 at 17:00; Stop 01/21/20 at 17:01; Status DC Enoxaparin Sodium (Lovenox 40mg Syringe) 40 mg Q24H SQ Last administered on 01/21/20at 22:16; Start 01/21/20 at 21:00 Labetalol HCl (Normodyne Iv Push) 10 mg PRN Q10MIN PRN IVP HTN SEE PARAMETERS; Start 01/21/20 at 17:00 Acetaminophen (Tylenol) 650 mg PRN Q6HRS PRN PO TEMP > 100.4F Last administered on 01/21/20at 22:17; Start 01/21/20 at 17:00 Acetaminophen (Tylenol Supp) 650 mg PRN Q4HRS PRN MN TEMP > 100.4F; Start 01/21/20 at 17:00 Bisacodyl (Dulcolax Tab) 10 mg PRN DAILY PRN PO CONSTIPATION; Start 01/21/20 at 17:00 Docusate Sodium (Colace) 100 mg PRN DAILY PRN PO HARD STOOLS; Start 01/21/20 at 17:00 Famotidine (Pepcid) 20 mg BID PO Last administered on 01/22/20at 08:57; Start 01/21/20 at 21:00 Aspirin (Ecotrin) 325 mg DAILYWBKFT PO Last administered on 01/22/20at 08:57; Start 01/22/20 at 08:00 Aspirin (Aspirin Rectal Supp) 300 mg PRN DAILY PRN MN IF UNABLE TO TAKE PO; Start 01/21/20 at 17:00 Ondansetron HCl (Zofran) 4 mg PRN Q8HRS PRN IV NAUSEA/VOMITING; Start 01/21/20 at 17:00; Stop 01/22/20 at 16:59 Acetaminophen (Tylenol) 650 mg PRN Q4HRS PRN PO FEVER > 100.3'F; Start 01/21/20 at 17:00; Stop 01/21/20 at 17:39; Status DC Insulin Human Lispro (HumaLOG) 0-7 UNITS TIDWMEALS SQ Last administered on 01/21/20at 18:03; Start 01/21/20 at 17:00; Stop 01/21/20 at 19:04; Status DC Dextrose (Dextrose 50%-Water Syringe) 12.5 gm PRN Q15MIN PRN IV SEE COMMENTS; Start 01/21/20 at 17:00; Stop 01/21/20 at 19:10; Status DC Insulin Glargine (Lantus Syringe) 50 unit BID SQ Last administered on 01/21/20at 22:20; Start 01/21/20 at 21:00 Insulin Human Lispro (HumaLOG) 25 units TIDBFRMEAL SQ Last administered on 01/22/20at 08:59; Start 01/22/20 at 07:30 Insulin Human Lispro (HumaLOG) 0-9 UNITS TIDACHC SQ Last administered on 01/22/20at 09:00; Start 01/21/20 at 21:00 Dextrose (Dextrose 50%-Water Syringe) 12.5 gm PRN Q15MIN PRN IV SEE COMMENTS; Start 01/21/20 at 18:30 Ceftriaxone Sodium (Rocephin) 1 gm DAILY IVP Last administered on 01/21/20at 18:50; Start 01/21/20 at 18:30 Atorvastatin Calcium (Lipitor) 20 mg QHS PO Last administered on 01/21/20 22:15; Start 01/21/20 at 21:00 Acetaminophen/ Hydrocodone Bitart (Lortab 5/325) 1 tab PRN BID PRN PO MODERATE PAIN 4-6 Last administered on 01/22/20 03:59; Start 01/21/20 at 20:45 Losartan Potassium (Cozaar) 25 mg DAILY PO Last administered on 01/22/20at 08:57; Start 01/22/20 at 09:00 Amitriptyline HCl (Elavil) 100 mg QHS PO ; Start 01/21/20 at 21:00; Stop 01/02 at 20:49; Status DC Ondansetron HCl (Zofran Odt) 4 mg PRN Q8HRS PRN PO NAUSEA/VOMITING 1ST CHOICE; Start 01/21/20 at 21:00 Amitriptyline HCl (Elavil) 100 mg QHS PO Last administered on 01/21/20 22:16; Start 01/21/20 at 21:00 Active Scripts Active Reglan (Metoclopramide Hcl) 10 Mg Tablet 1 Tab PO Q8HRS PRN Take 25 mg of Benadryl with each dose Diflucan (Fluconazole) 150 Mg Tablet 1 Tab PO ONCE Keflex (Cephalexin) 500 Mg Capsule 1 Cap PO TID [place] 5-325 Tablet (Acetaminophen/Hydrocodone Bitart) 1 Each Tablet 0.5-1 Tab PO PRN Q6HRS PRN Naproxen 500 Mg Tablet 1 Tab PO BID [place] 5-325 Tablet (Acetaminophen/Hydrocodone Bitart) 1 Each Tablet 1 Tab PO Q6HRS Gabapentin (Gabapentin) 300 Mg Capsule 300 Mg PO TID Diflucan (Fluconazole) 150 Mg Tablet 1 Tab PO ONCE Tylenol With Codeine #3 Tablet (Acetaminophen/Codeine Phosphate) 1 Each Tablet 1 Tab PO PRN Q6HRS PRN 2 Days Macrodantin (Nitrofurantoin Macrocrystal) 100 Mg Capsule 1 Cap PO BID Diflucan (Fluconazole) 150 Mg Tablet 1 Tab PO ONCE Flagyl (Metronidazole) 500 Mg Tablet 1 Tab PO BID Amoxicillin 500 Mg Tablet 1 Tab PO TID Diflucan (Fluconazole) 150 Mg Tablet 1 Tab PO ONCE [place] 5-325 Tablet (Acetaminophen/Hydrocodone Bitart) 1 Each Tablet 1 Tab PO BID Erythromycin (Erythromycin Base) 1 Gm Oint...g. 1 [place] OP Q4HRS W/A apply to the affected eye as directed Diflucan (Fluconazole) 100 Mg Tablet 100 Mg PO DAILY Naprosyn (Naproxen) 500 Mg Tablet 500 Mg PO BID PRN Cyclobenzaprine Hcl 10 Mg Tablet 10 Mg PO TID PRN Zofran (Ondansetron Hcl) 4 Mg Tablet 1 Tab PO Q8HRS PRN Oxycodone-Acetaminophen 5-325 (Oxycodone Hcl/Acetaminophen) 1 Each Tablet 1 Tab PO PRN Q4HRS PRN Amitiza (Lubiprostone) 8 Mcg Capsule 8 Mcg PO BIDWMEALS Reported Losartan Potassium 25 Mg Tablet 25 Mg PO DAILY 90 Days Atorvastatin Calcium 20 Mg Tablet 20 Mg PO QHS 90 Days Amitriptyline Hcl 100 Mg Tablet 100 Mg PO QHS 90 Days Prozac (Fluoxetine Hcl) 40 Mg Capsule 1 Cap PO DAILY Quetiapine Fumarate 50 Mg Tablet 50 Mg PO PRN TID PRN Clonazepam (Clonazepam) 0.5 Mg Tablet 1 Tab PO BID Cozaar (Losartan Potassium) 25 Mg Tablet 25 Mg PO DAILY Abilify (Aripiprazole) 15 Mg Tablet 15 Mg PO DAILY Trazodone Hcl 50 Mg Tablet 1 Tab PO PRN QHS PRN Metformin HCl ER (Metformin HCl) 1,000 Mg [id number] 1,000 Mg PO DAILY Gabapentin 600 Mg Tablet 600 Mg PO TID Humalog (Insulin Lispro) 100 Unit/1 Ml Cartridge 50 Unit SQ TIDBFRMEAL Levemir (Insulin Detemir) 100 Unit/1 Ml Vial 50 Unit SQ BID Allergies Allergies: Coded Allergies: shrimp (Verified Allergy, Intermediate, 5/26/17) ROS Review of System Negative for fever, chills, weight loss, shortness of breath, chest pain, indigestion, hematochezia, melena, and dysuria. Full 14-point review of systems is negative. Physical Exam Physical Examination General: Well-developed, well-nourished white female in no acute distress HEENT: Normocephalic andatraumatic. Temporal arteriespulsatile and nontender. Neck: Supple without bruit, no meningismus Musculoskeletal: Stability:see neurologic. Gait exam:see neurologic. Tone:see neurol ogic.Strength:see neurologic. Neurological: Mental Status:intact, orientation, memory, attention span/concentration, language, fund of knowledge normal. Cranial Nerves:Pupils equal and reactive to light, extraocular movements areintact, visual bustos are full to confrontation. Facial sensation is normal. There is no facial asymmetry. Vestibulo-ocular reflex is intact. Palate elevates and tongue protrudes in midline. All other cranial related problems are negative except as mentioned before.Reflexes:1+ and symmetric with flexor plantar responses. Motor:5/5 strength with normal tone and bulk. Coordination:Finger-nose finger and [id number] testing are normal. Rapid alternating movements and fine finger movements are intact. Gait:Normal, including tandem. Sensory: stocking loss Vitals VITALS Vital Signs Date Time Temp Pulse Resp B/P (MAP) Pulse Ox O2 Delivery O2 Flow Rate FiO2 01/22/20 08:57 102 133/92 01/22/20 08:00 Room Air 01/22/20 07:00 98 01/22/20 07:00 97.6 16 97.6 Labs Labs Laboratory Tests Test 01/21/20 15:47 01/21/20 16:00 01/21/20 17:00 01/21/20 17:57 Glucose (Fingerstick) 332 mg/dL (70-99) 283 mg/dL (70-99) White Blood Count 8.9 x10^3/uL (4.0-11.0) Red Blood Count 4.92 x10^6/uL (3.50-5.40) Hemoglobin 14.4 g/dL (12.0-15.5) Hematocrit 41.1 % (36.0-47.0) Mean Corpuscular Volume 84 fL (79-100) Mean Corpuscular Hemoglobin 29 pg (25-35) Mean Corpuscular Hemoglobin Concent 35 g/dL (31-37) Red Cell Distribution Width 14.4 % (11.5-14.5) Platelet Count 201 x10^3/uL (140-400) Neutrophils (%) (Auto) 56 % (31-73) Lymphocytes (%) (Auto) 35 % (24-48) Monocytes (%) (Auto) 7 % (0-9) Eosinophils (%) (Auto) 2 % (0-3) Basophils (%) (Auto) 1 % (0-3) Neutrophils # (Auto) 5.0 x10^3/uL (1.8-7.7) Lymphocytes # (Auto) 3.1 x10^3/uL (1.0-4.8) Monocytes # (Auto) 0.6 x10^3/uL (0.0-1.1) Eosinophils # (Auto) 0.1 x10^3/uL (0.0-0.7) Basophils # (Auto) 0.1 x10^3/uL (0.0-0.2) Prothrombin Time 13.4 SEC (11.7-14.0) Prothromb Time International Ratio 1.1 (0.8-1.1) Sodium Level 137 mmol/L (136-145) Potassium Level 3.9 mmol/L (3.5-5.1) Chloride Level 101 mmol/L (98-107) Carbon Dioxide Level 26 mmol/L (21-32) Anion Gap 10 (6-14) Blood Urea Nitrogen 11 mg/dL (7-20) Creatinine 1.0 mg/dL (0.6-1.0) Estimated GFR (Cockcroft-Gault) 60.2 BUN/Creatinine Ratio 11 (6-20) Glucose Level 361 mg/dL (70-99) Calcium Level 9.2 mg/dL (8.5-10.1) Magnesium Level 1.9 mg/dL (1.8-2.4) Total Bilirubin 0.6 mg/dL (0.2-1.0) Aspartate Amino Transf (AST/SGOT) 34 U/L (15-37) Alanine Aminotransferase (ALT/SGPT) 48 U/L (14-59) Alkaline Phosphatase 104 U/L (46-116) Creatine Kinase 51 U/L (26-192) Troponin I Quantitative < 0.017 ng/mL (0.000-0.055) Total Protein 7.7 g/dL (6.4-8.2) Albumin 3.6 g/dL (3.4-5.0) Albumin/Globulin Ratio 0.9 (1.0-1.7) Thyroid Stimulating Hormone (TSH) 1.357 uIU/mL (0.358-3.74) Ethyl Alcohol Level < 10 mg/dL (0-10) Urine Collection Type Unknown Urine Color Yellow Urine Clarity Clear Urine pH 5.5 (<5.0-8.0) Urine Specific [place] >=1.030 (1.000-1.030) Urine Protein Negative mg/dL (NEG-TRACE) Urine Glucose (UA) >=1000 mg/dL (NEG) Urine Ketones (Stick) Negative mg/dL (NEG) Urine Blood Moderate (NEG) Urine Nitrite Positive (NEG) Urine Bilirubin Negative (NEG) Urine Urobilinogen Dipstick 0.2 mg/dL (0.2 mg/dL) Urine Leukocyte Esterase Negative (NEG) Urine RBC 3-5 /HPF (0-2) Urine WBC 20-40 /HPF (0-4) Urine Squamous Epithelial Cells Few /LPF Urine Bacteria Many /HPF (0-FEW) Urine Opiates Screen Neg (NEG) Urine Methadone Screen Neg (NEG) Urine Barbiturates Neg (NEG) Urine Phencyclidine Screen Neg (NEG) Urine Amphetamine/Methamphetamine Neg (NEG) Urine Benzodiazepines Screen Neg (NEG) Urine Cocaine Screen Neg (NEG) Urine Cannabinoids Screen Neg (NEG) Urine Ethyl Alcohol Neg (NEG) Test 01/21/20 19:37 01/21/20 21:09 01/22/20 04:20 01/22/20 07:59 Glucose (Fingerstick) 352 mg/dL (70-99) 318 mg/dL (70-99) 250 mg/dL (70-99) White Blood Count 6.4 x10^3/uL (4.0-11.0) Red Blood Count 4.47 x10^6/uL (3.50-5.40) Hemoglobin 13.0 g/dL (12.0-15.5) Hematocrit 37.8 % (36.0-47.0) Mean Corpuscular Volume 85 fL (79-100) Mean Corpuscular Hemoglobin 29 pg (25-35) Mean Corpuscular Hemoglobin Concent 34 g/dL (31-37) Red Cell Distribution Width 14.3 % (11.5-14.5) Platelet Count 157 x10^3/uL (140-400) Neutrophils (%) (Auto) 46 % (31-73) Lymphocytes (%) (Auto) 44 % (24-48) Monocytes (%) (Auto) 7 % (0-9) Eosinophils (%) (Auto) 2 % (0-3) Basophils (%) (Auto) 1 % (0-3) Neutrophils # (Auto) 3.0 x10^3/uL (1.8-7.7) Lymphocytes # (Auto) 2.8 x10^3/uL (1.0-4.8) Monocytes # (Auto) 0.5 x10^3/uL (0.0-1.1) Eosinophils # (Auto) 0.1 x10^3/uL (0.0-0.7) Basophils # (Auto) 0.0 x10^3/uL (0.0-0.2) Sodium Level 139 mmol/L (136-145) Potassium Level 3.9 mmol/L (3.5-5.1) Chloride Level 104 mmol/L (98-107) Carbon Dioxide Level 27 mmol/L (21-32) Anion Gap 8 (6-14) Blood Urea Nitrogen 9 mg/dL (7-20) Creatinine 0.9 mg/dL (0.6-1.0) Estimated GFR (Cockcroft-Gault) 68.0 BUN/Creatinine Ratio 10 (6-20) Glucose Level 318 mg/dL (70-99) Calcium Level 8.7 mg/dL (8.5-10.1) Total Bilirubin 0.4 mg/dL (0.2-1.0) Aspartate Amino Transf (AST/SGOT) 28 U/L (15-37) Alanine Aminotransferase (ALT/SGPT) 38 U/L (14-59) Alkaline Phosphatase 89 U/L (46-116) Total Protein 6.4 g/dL (6.4-8.2) Albumin 2.9 g/dL (3.4-5.0) Albumin/Globulin Ratio 0.8 (1.0-1.7) Triglycerides Level 262 mg/dL (0-150) Cholesterol Level 149 mg/dL (0-200) LDL Cholesterol, Calculated 74 mg/dL (0-100) VLDL Cholesterol, Calculated 52 mg/dL (0-40) Non-HDL Cholesterol Calculated 126 mg/dL (0-129) HDL Cholesterol 23 mg/dL (40-60) Cholesterol/HDL Ratio 6.5 Laboratory Tests Test 01/21/20 15:47 01/21/20 16:00 01/21/20 17:00 01/21/20 17:57 Glucose (Fingerstick) 332 mg/dL (70-99) 283 mg/dL (70-99) White Blood Count 8.9 x10^3/uL (4.0-11.0) Red Blood Count 4.92 x10^6/uL (3.50-5.40) Hemoglobin 14.4 g/dL (12.0-15.5) Hematocrit 41.1 % (36.0-47.0) Mean Corpuscular Volume 84 fL (79-100) Mean Corpuscular Hemoglobin 29 pg (25-35) Mean Corpuscular Hemoglobin Concent 35 g/dL (31-37) Red Cell Distribution Width 14.4 % (11.5-14.5) Platelet Count 201 x10^3/uL (140-400) Neutrophils (%) (Auto) 56 % (31-73) Lymphocytes (%) (Auto) 35 % (24-48) Monocytes (%) (Auto) 7 % (0-9) Eosinophils (%) (Auto) 2 % (0-3) Basophils (%) (Auto) 1 % (0-3) Neutrophils # (Auto) 5.0 x10^3/uL (1.8-7.7) Lymphocytes # (Auto) 3.1 x10^3/uL (1.0-4.8) Monocytes # (Auto) 0.6 x10^3/uL (0.0-1.1) Eosinophils # (Auto) 0.1 x10^3/uL (0.0-0.7) Basophils # (Auto) 0.1 x10^3/uL (0.0-0.2) Prothrombin Time 13.4 SEC (11.7-14.0) Prothromb Time International Ratio 1.1 (0.8-1.1) Sodium Level 137 mmol/L (136-145) Potassium Level 3.9 mmol/L (3.5-5.1) Chloride Level 101 mmol/L (98-107) Carbon Dioxide Level 26 mmol/L (21-32) Anion Gap 10 (6-14) Blood Urea Nitrogen 11 mg/dL (7-20) Creatinine 1.0 mg/dL (0.6-1.0) Estimated GFR (Cockcroft-Gault) 60.2 BUN/Creatinine Ratio 11 (6-20) Glucose Level 361 mg/dL (70-99) Calcium Level 9.2 mg/dL (8.5-10.1) Magnesium Level 1.9 mg/dL (1.8-2.4) Total Bilirubin 0.6 mg/dL (0.2-1.0) Aspartate Amino Transf (AST/SGOT) 34 U/L (15-37) Alanine Aminotransferase (ALT/SGPT) 48 U/L (14-59) Alkaline Phosphatase 104 U/L (46-116) Creatine Kinase 51 U/L (26-192) Troponin I Quantitative < 0.017 ng/mL (0.000-0.055) Total Protein 7.7 g/dL (6.4-8.2) Albumin 3.6 g/dL (3.4-5.0) Albumin/Globulin Ratio 0.9 (1.0-1.7) Thyroid Stimulating Hormone (TSH) 1.357 uIU/mL (0.358-3.74) Ethyl Alcohol Level < 10 mg/dL (0-10) Urine Collection Type Unknown Urine Color Yellow Urine Clarity Clear Urine pH 5.5 (<5.0-8.0) Urine Specific [place] >=1.030 (1.000-1.030) Urine Protein Negative mg/dL (NEG-TRACE) Urine Glucose (UA) >=1000 mg/dL (NEG) Urine Ketones (Stick) Negative mg/dL (NEG) Urine Blood Moderate (NEG) Urine Nitrite Positive (NEG) Urine Bilirubin Negative (NEG) Urine Urobilinogen Dipstick 0.2 mg/dL (0.2 mg/dL) Urine Leukocyte Esterase Negative (NEG) Urine RBC 3-5 /HPF (0-2) Urine WBC 20-40 /HPF (0-4) Urine Squamous Epithelial Cells Few /LPF Urine Bacteria Many /HPF (0-FEW) Urine Opiates Screen Neg (NEG) Urine Methadone Screen Neg (NEG) Urine Barbiturates Neg (NEG) Urine Phencyclidine Screen Neg (NEG) Urine Amphetamine/Methamphetamine Neg (NEG) Urine Benzodiazepines Screen Neg (NEG) Urine Cocaine Screen Neg (NEG) Urine Cannabinoids Screen Neg (NEG) Urine Ethyl Alcohol Neg (NEG) Test 01/21/20 19:37 01/21/20 21:09 01/22/20 04:20 01/22/20 07:59 Glucose (Fingerstick) 352 mg/dL (70-99) 318 mg/dL (70-99) 250 mg/dL (70-99) White Blood Count 6.4 x10^3/uL (4.0-11.0) Red Blood Count 4.47 x10^6/uL (3.50-5.40) Hemoglobin 13.0 g/dL (12.0-15.5) Hematocrit 37.8 % (36.0-47.0) Mean Corpuscular Volume 85 fL (79-100) Mean Corpuscular Hemoglobin 29 pg (25-35) Mean Corpuscular Hemoglobin Concent 34 g/dL (31-37) Red Cell Distribution Width 14.3 % (11.5-14.5) Platelet Count 157 x10^3/uL (140-400) Neutrophils (%) (Auto) 46 % (31-73) Lymphocytes (%) (Auto) 44 % (24-48) Monocytes (%) (Auto) 7 % (0-9) Eosinophils (%) (Auto) 2 % (0-3) Basophils (%) (Auto) 1 % (0-3) Neutrophils # (Auto) 3.0 x10^3/uL (1.8-7.7) Lymphocytes # (Auto) 2.8 x10^3/uL (1.0-4.8) Monocytes # (Auto) 0.5 x10^3/uL (0.0-1.1) Eosinophils # (Auto) 0.1 x10^3/uL (0.0-0.7) Basophils # (Auto) 0.0 x10^3/uL (0.0-0.2) Sodium Level 139 mmol/L (136-145) Potassium Level 3.9 mmol/L (3.5-5.1) Chloride Level 104 mmol/L (98-107) Carbon Dioxide Level 27 mmol/L (21-32) Anion Gap 8 (6-14) Blood Urea Nitrogen 9 mg/dL (7-20) Creatinine 0.9 mg/dL (0.6-1.0) Estimated GFR (Cockcroft-Gault) 68.0 BUN/Creatinine Ratio 10 (6-20) Glucose Level 318 mg/dL (70-99) Calcium Level 8.7 mg/dL (8.5-10.1) Total Bilirubin 0.4 mg/dL (0.2-1.0) Aspartate Amino Transf (AST/SGOT) 28 U/L (15-37) Alanine Aminotransferase (ALT/SGPT) 38 U/L (14-59) Alkaline Phosphatase 89 U/L (46-116) Total Protein 6.4 g/dL (6.4-8.2) Albumin 2.9 g/dL (3.4-5.0) Albumin/Globulin Ratio 0.8 (1.0-1.7) Triglycerides Level 262 mg/dL (0-150) Cholesterol Level 149 mg/dL (0-200) LDL Cholesterol, Calculated 74 mg/dL (0-100) VLDL Cholesterol, Calculated 52 mg/dL (0-40) Non-HDL Cholesterol Calculated 126 mg/dL (0-129) HDL Cholesterol 23 mg/dL (40-60) Cholesterol/HDL Ratio 6.[address] HEAD WITHOUT CONTRAST 01/21/2020 3:53 PM Indication: Reason: right side paresthesias / Spl. Instructions: / History: Comparison: None available Procedure: Multidetector CT imaging of the head was performed without the administration of contrast. Findings: There is no evidence of acute intracranial hemorrhage. There is no evidence of acute territorial infarction. Please note that CT is limited for evaluation of acute ischemia. No mass effect or midline shift is identified . The ventricles and basilar cisterns have an appropriate appearance. No abnormal extra-axial fluid collections are seen. No acute osseous changes are identified. Impression: No evidence of acute intracranial abnormality Assessment/Plan Assessment/Plan Impression: Possible stroke symptoms, on exam I'm just picking up on some diabetic peripheral neuropathy. I also wonder about contribution from her fibromyalgia. Note that there are no symptoms above the neck, also inconsistent with stroke. I find no evidence of radiculopathy or myopathy. Recommendations: Start with an MRI of the brain, if negative, no further stroke workup needed Stroke pathway initiated Work for better control of her diabetes. Thank you for letting me help with the patient's care. RY HUTCHISON MD Jan 22, 2020 11:47
[2020-01-22] MEDS: INSULIN GLARGINE SYRINGE. SQ SCH (11:48)
--- NOTE | 2020-01-22 13:25 | PDOC ---
[employer] PROGRESS NOTE History of Present Illness History of Present Illness 01/22/20 Patient seen and examined Chart reviewed Discussed with RN Vitals/I&O Vitals/I&O: Vital Signs Date Time Temp Pulse Resp B/P (MAP) Pulse Ox O2 Delivery O2 Flow Rate FiO2 01/22/20 11:00 98.0 99 16 137/88 (104) 97 Room Air 98.0 I & O 01/21/20 01/21/20 01/22/20 15:00 23:00 07:00 Intake Total 700 ml Balance 700 ml Physical Exam General: Alert, Oriented X3, Cooperative, No acute distress, Other (Patient resting) Heart: Regular rate Lungs: Clear, Other Abdomen: Normal bowel sounds, Soft, No tenderness, No hepatosplenomegaly, No masses Extremities: No clubbing, No cyanosis, No edema, Normal pulses, No tenderness/swelling Skin: No rashes, No breakdown, No significant lesion Labs Labs: Laboratory Tests Test 01/21/20 15:47 01/21/20 16:00 01/21/20 17:00 01/21/20 17:57 Glucose (Fingerstick) 332 mg/dL (70-99) 283 mg/dL (70-99) White Blood Count 8.9 x10^3/uL (4.0-11.0) Red Blood Count 4.92 x10^6/uL (3.50-5.40) Hemoglobin 14.4 g/dL (12.0-15.5) Hematocrit 41.1 % (36.0-47.0) Mean Corpuscular Volume 84 fL (79-100) Mean Corpuscular Hemoglobin 29 pg (25-35) Mean Corpuscular Hemoglobin Concent 35 g/dL (31-37) Red Cell Distribution Width 14.4 % (11.5-14.5) Platelet Count 201 x10^3/uL (140-400) Neutrophils (%) (Auto) 56 % (31-73) Lymphocytes (%) (Auto) 35 % (24-48) Monocytes (%) (Auto) 7 % (0-9) Eosinophils (%) (Auto) 2 % (0-3) Basophils (%) (Auto) 1 % (0-3) Neutrophils # (Auto) 5.0 x10^3/uL (1.8-7.7) Lymphocytes # (Auto) 3.1 x10^3/uL (1.0-4.8) Monocytes # (Auto) 0.6 x10^3/uL (0.0-1.1) Eosinophils # (Auto) 0.1 x10^3/uL (0.0-0.7) Basophils # (Auto) 0.1 x10^3/uL (0.0-0.2) Prothrombin Time 13.4 SEC (11.7-14.0) Prothromb Time International Ratio 1.1 (0.8-1.1) Sodium Level 137 mmol/L (136-145) Potassium Level 3.9 mmol/L (3.5-5.1) Chloride Level 101 mmol/L (98-107) Carbon Dioxide Level 26 mmol/L (21-32) Anion Gap 10 (6-14) Blood Urea Nitrogen 11 mg/dL (7-20) Creatinine 1.0 mg/dL (0.6-1.0) Estimated GFR (Cockcroft-Gault) 60.2 BUN/Creatinine Ratio 11 (6-20) Glucose Level 361 mg/dL (70-99) Calcium Level 9.2 mg/dL (8.5-10.1) Magnesium Level 1.9 mg/dL (1.8-2.4) Total Bilirubin 0.6 mg/dL (0.2-1.0) Aspartate Amino Transf (AST/SGOT) 34 U/L (15-37) Alanine Aminotransferase (ALT/SGPT) 48 U/L (14-59) Alkaline Phosphatase 104 U/L (46-116) Creatine Kinase 51 U/L (26-192) Troponin I Quantitative < 0.017 ng/mL (0.000-0.055) Total Protein 7.7 g/dL (6.4-8.2) Albumin 3.6 g/dL (3.4-5.0) Albumin/Globulin Ratio 0.9 (1.0-1.7) Thyroid Stimulating Hormone (TSH) 1.357 uIU/mL (0.358-3.74) Ethyl Alcohol Level < 10 mg/dL (0-10) Urine Collection Type Unknown Urine Color Yellow Urine Clarity Clear Urine pH 5.5 (<5.0-8.0) Urine Specific [place] >=1.030 (1.000-1.030) Urine Protein Negative mg/dL (NEG-TRACE) Urine Glucose (UA) >=1000 mg/dL (NEG) Urine Ketones (Stick) Negative mg/dL (NEG) Urine Blood Moderate (NEG) Urine Nitrite Positive (NEG) Urine Bilirubin Negative (NEG) Urine Urobilinogen Dipstick 0.2 mg/dL (0.2 mg/dL) Urine Leukocyte Esterase Negative (NEG) Urine RBC 3-5 /HPF (0-2) Urine WBC 20-40 /HPF (0-4) Urine Squamous Epithelial Cells Few /LPF Urine Bacteria Many /HPF (0-FEW) Urine Opiates Screen Neg (NEG) Urine Methadone Screen Neg (NEG) Urine Barbiturates Neg (NEG) Urine Phencyclidine Screen Neg (NEG) Urine Amphetamine/Methamphetamine Neg (NEG) Urine Benzodiazepines Screen Neg (NEG) Urine Cocaine Screen Neg (NEG) Urine Cannabinoids Screen Neg (NEG) Urine Ethyl Alcohol Neg (NEG) Test 01/21/20 19:37 01/21/20 21:09 01/22/20 04:20 01/22/20 07:59 Glucose (Fingerstick) 352 mg/dL (70-99) 318 mg/dL (70-99) 250 mg/dL (70-99) White Blood Count 6.4 x10^3/uL (4.0-11.0) Red Blood Count 4.47 x10^6/uL (3.50-5.40) Hemoglobin 13.0 g/dL (12.0-15.5) Hematocrit 37.8 % (36.0-47.0) Mean Corpuscular Volume 85 fL (79-100) Mean Corpuscular Hemoglobin 29 pg (25-35) Mean Corpuscular Hemoglobin Concent 34 g/dL (31-37) Red Cell Distribution Width 14.3 % (11.5-14.5) Platelet Count 157 x10^3/uL (140-400) Neutrophils (%) (Auto) 46 % (31-73) Lymphocytes (%) (Auto) 44 % (24-48) Monocytes (%) (Auto) 7 % (0-9) Eosinophils (%) (Auto) 2 % (0-3) Basophils (%) (Auto) 1 % (0-3) Neutrophils # (Auto) 3.0 x10^3/uL (1.8-7.7) Lymphocytes # (Auto) 2.8 x10^3/uL (1.0-4.8) Monocytes # (Auto) 0.5 x10^3/uL (0.0-1.1) Eosinophils # (Auto) 0.1 x10^3/uL (0.0-0.7) Basophils # (Auto) 0.0 x10^3/uL (0.0-0.2) Sodium Level 139 mmol/L (136-145) Potassium Level 3.9 mmol/L (3.5-5.1) Chloride Level 104 mmol/L (98-107) Carbon Dioxide Level 27 mmol/L (21-32) Anion Gap 8 (6-14) Blood Urea Nitrogen 9 mg/dL (7-20) Creatinine 0.9 mg/dL (0.6-1.0) Estimated GFR (Cockcroft-Gault) 68.0 BUN/Creatinine Ratio 10 (6-20) Glucose Level 318 mg/dL (70-99) Calcium Level 8.7 mg/dL (8.5-10.1) Total Bilirubin 0.4 mg/dL (0.2-1.0) Aspartate Amino Transf (AST/SGOT) 28 U/L (15-37) Alanine Aminotransferase (ALT/SGPT) 38 U/L (14-59) Alkaline Phosphatase 89 U/L (46-116) Total Protein 6.4 g/dL (6.4-8.2) Albumin 2.9 g/dL (3.4-5.0) Albumin/Globulin Ratio 0.8 (1.0-1.7) Triglycerides Level 262 mg/dL (0-150) Cholesterol Level 149 mg/dL (0-200) LDL Cholesterol, Calculated 74 mg/dL (0-100) VLDL Cholesterol, Calculated 52 mg/dL (0-40) Non-HDL Cholesterol Calculated 126 mg/dL (0-129) HDL Cholesterol 23 mg/dL (40-60) Cholesterol/HDL Ratio 6.5 Test 01/22/20 12:15 Glucose (Fingerstick) 221 mg/dL (70-99) Assessment and Plan Assessmemt and Plan Problems Medical Problems: (1) CVA (cerebral vascular accident) Status: Acute (2) Diabetic neuropathy Status: Acute (3) Poorly controlled diabetes mellitus Status: Acute Comment Review of Relevant I have reviewed the following items karthik (where applicable) has been applied. Medications: Current Medications Medications (Trade) Dose Ordered Sig/Dominique Route PRN Reason Start Time Stop Time Status Last Admin Dose Admin Fentanyl Citrate (Fentanyl 2ml Vial) 50 mcg 1X ONCE IV 01/21/20 17:00 01/21/20 17:01 DC 01/21/20 17:10 Ondansetron HCl (Zofran) 4 mg 1X ONCE IV 01/21/20 17:00 01/21/20 17:01 DC 01/21/20 17:09 Aspirin (Aspirin Chewable) 324 mg 1X ONCE PO 01/21/20 17:00 01/21/20 17:01 DC 01/21/20 17:09 Enoxaparin Sodium (Lovenox 40mg Syringe) 40 mg Q24H SQ 01/21/20 21:00 01/21/20 22:16 Acetaminophen (Tylenol) 650 mg PRN Q6HRS PRN PO TEMP > 100.4F 01/21/20 17:00 01/21/20 22:17 Famotidine (Pepcid) 20 mg BID PO 01/21/20 21:00 01/22/20 08:57 Aspirin (Ecotrin) 325 mg DAILYWBKFT PO 01/22/20 08:00 01/22/20 08:57 Insulin Human Lispro (HumaLOG) 0-7 UNITS TIDWMEALS SQ 01/21/20 17:00 01/21/20 19:04 DC 01/21/20 18:03 Insulin Glargine (Lantus Syringe) 50 unit BID SQ 01/21/20 21:00 01/22/20 11:48 Insulin Human Lispro (HumaLOG) 25 units TIDBFRMEAL SQ 01/22/20 07:30 01/22/20 08:59 Insulin Human Lispro (HumaLOG) 0-9 UNITS TIDACHC SQ 01/21/20 21:00 01/22/20 09:00 Ceftriaxone Sodium (Rocephin) 1 gm DAILY IVP 01/21/20 18:30 01/22/20 11:44 Atorvastatin Calcium (Lipitor) 20 mg QHS PO 01/21/20 21:00 01/21/20 22:15 Acetaminophen/ Hydrocodone Bitart (Lortab 5/325) 1 tab PRN BID PRN PO MODERATE PAIN 4-6 01/21/20 20:45 01/22/20 03:59 Losartan Potassium (Cozaar) 25 mg DAILY PO 01/22/20 09:00 01/22/20 08:57 Amitriptyline HCl (Elavil) 100 mg QHS PO 01/21/20 21:00 01/21/20 22:16 Justicifation of Admission Dx: Justifications for Admission: Justification of Admission Dx: Yes Stroke - Ischemic: Stroke-Ischemic ASHLYN HERRERA III DO Jan 22, 2020 13:25
--- NOTE | 2020-01-22 14:29 | RAD ---
BRAIN W/O CONTRAST History:Reason: right sided numbness x 1 wk / Spl. Instructions: / History: Technique: Multiplanar, multi sequential MR imaging was performed of the brain without contrast. Comparison: CT January 21, 2020 Findings: No acute infarct. No intracranial hemorrhage. No mass effect. No hydrocephalus. Extra-axial spaces are unremarkable. Imaged orbits are unremarkable. Imaged paranasal sinuses and mastoid air cells are clear. Impression: 1. No acute intracranial abnormality. Electronically signed by: Robert Montalvo DO (01/22/2020 2:25 PM) [id number]
--- NOTE | 2020-01-22 14:46 | NUR ---
SS following for discharge planning. SS reviewed pt chart and discussed with pt RN. Pt is from home and is currently on room air. Per RN, if MRI is good then pt may discharge to home today. PT/OT recommended home. SS will continue to follow for discharge planning.
[2020-01-22 15:00] VITALS: BP 121/79
[2020-01-22] MEDS ORDERED: LACTOBACILLUS RHAMNOSUS GG 1 CAPSULE. PO SCH (21:00)
[2020-01-23 07:17] LABS: HEMOGLOBIN A1C 10.3 % (4.8-5.6)
--- NOTE | 2020-01-23 08:54 | DS ---
DATE OF DISCHARGE: 01/22/2020 ADMISSION DIAGNOSIS: Transient ischemic attack versus stroke. DISCHARGE DIAGNOSIS: Resolving transient ischemic attack. HOSPITAL COURSE: The patient is a pleasant 44-year-old female who presented with some stroke symptoms with left-sided weakness. She was admitted. We did an MRI and CAT scan. Consult Neurology, did some physical therapy and occupational therapy. Yesterday, I saw her and examined her. She is at her baseline. Heart tones are normal. Lungs were clear. Her MRI was negative. We discharged to home. DISPOSITION: Home. ACTIVITY: As tolerated. DIET: Low sodium. MEDICATIONS: Please see MRAD. TOTAL TIME: 32 minutes. ASHLYN HERRERA DO DR: GOLDIE/catherine JOB#: [id number] / [id number]
== END 2020-01-22 18:15 | disposition home or self-care (01) ==
LOC: ER 15:31 → ED HOLD 16:54 → 2 SOUTH 18:57
PROVIDERS: ADMIT Internal Medicine; ATTEND Internal Medicine
DX: I63.9 Cerebral infarction, unspecified (principal); E11.65 Type 2 diabetes mellitus with hyperglycemia; E11.42 Type 2 diabetes mellitus with diabetic polyneuropathy; I16.0 Hypertensive urgency; J45.909 Unspecified asthma, uncomplicated; R29.6 Repeated falls; F17.210 Nicotine dependence, cigarettes, uncomplicated; E78.5 Hyperlipidemia, unspecified; F32.9 Major depressive disorder, single episode, unspecified; F41.9 Anxiety disorder, unspecified; I25.10 Atherosclerotic heart disease of native coronary artery without angina pectoris; I10 Essential (primary) hypertension; M79.7 Fibromyalgia; Z79.82 Long term (current) use of aspirin; Z90.710 Acquired absence of both cervix and uterus
CPT/HCPCS: 36415; 70450; 70551; 80053; 80061; 80307; 81001; 82550; 82962; 83036; 83735; 84443; 84484; 85025; 85610; 87077; 87086; 87186; 92610; 93005; 96372; 96374; 96375; 96376; 97161; 97165; 99285; G0378; G0480; J0696; J1650; J1815; J2405; J3010; G0379

== ENCOUNTER 2021-01-31 14:05 | Emergency (ER) | payer OTHER ==
[~2021-01-31] VITALS: Ht 172.7 cm; Wt 90.9 kg
[~2021-01-31 14:05] MED LIST changes: +AMIT100T PO; +ATOR20TA58 PO; -CLIN150C14 PO; +CLIN150C16 PO; +LOSA25TA4 PO; -QUET50TA PO; +QUET50TA3 PO
[2021-01-31 14:52] VITALS: BP 140/81
--- NOTE | 2021-01-31 15:36 | PHYS DOC ---
Past Medical History Past Medical History: Anxiety, Depression, Diabetes-Type II, Gallstones, Hypertension, [place], Other Additional Past Medical Histor: fibroid tumors,Chronic abdominal pain,NEUROPATHY,CHRONIC NECK PAIN Past Surgical History: Cholecystectomy, Hysterectomy Additional Past Surgical Histo: carpal tunnel,R elbow,D&C Smoking Status: Current Every Day Smoker Alcohol Use: None Drug Use: None General Adult EDM: Chief Complaint: RIB PAIN HPI: HPI: Patient is a 45 year old female who presents with 2 days ago she was at her caodaism and she was throwing out some trash into the dumpster and she got up snf into the dumpster area when her foot slipped and she fell on her left ribs. Her left ribs hit the lip of the dumpster area. She states nothing else hurts. She states she went to coal picker her granddaughter yesterday and is very painful. She also states she is short of breath and it hurts at night to lay on that side. Patient denies chest pain, fever, cough, abdominal pain, nausea, vomiting, hitting her head, dizziness or headache. She rates her pain 8 out of 10. She states that she is on hydrocodone at home and so she does not need any pain medicine she is to make sure nothing is broken or wrong. She has a history of cholecystectomy, hysterectomy, D&C, smoker, depression, diabetes, anxiety, hypertension, gallstones, [place], fibroid tumors, neuropathy, chronic pain. Review of Systems: Review of Systems: Constitutional: Denies fever or chills. [] Eyes: Denies change in visual acuity. [] HENT: Denies nasal congestion or sore throat. [] Respiratory: Denies cough or +shortness of breath. [] Cardiovascular: Denies chest pain or edema. [] GI: Denies abdominal pain, nausea, vomiting, bloody stools or diarrhea. [] : Denies dysuria. [] Musculoskeletal: Denies back pain or joint pain. + Left ribs [] Integument: Denies rash. [] Neurologic: Denies headache, focal weakness or sensory changes. [] Endocrine: Denies polyuria or polydipsia. [] Lymphatic: Denies swollen glands. [] Psychiatric: Denies depression or anxiety. [] Heart Score: C/O Chest Pain: No Risk Factors: Risk Factors: DM, Current or recent (<one month) smoker, HTN, HLP, family history of CAD, obesity. Risk Scores: Score 0 - 3: 2.5% MACE over next 6 weeks - Discharge Home Score 4 - 6: 20.3% MACE over next 6 weeks - Admit for Clinical Observation Score 7 - 10: 72.7% MACE over next 6 weeks - Early Invasive Strategies Allergies: Allergies: Allergies Coded Allergies Type Severity Reaction Last Updated Verified shrimp Allergy Intermediate 11/26/16 Yes Physical Exam: PE: Constitutional: Well developed, well nourished, no acute distress, non-toxic appearance. [] HENT: Normocephalic, atraumatic, bilateral external ears normal, oropharynx moist, no oral exudates, nose normal. [] Eyes: PERRLA, EOMI, conjunctiva normal, no discharge. [] Neck: Normal range of motion, no tenderness, supple, no stridor. [] Cardiovascular:Heart rate regular rhythm, no murmur [] Lungs & Thorax: Bilateral breath sounds clear to auscultation. Left rib tenderness [] Abdomen: Bowel sounds normal, soft, no tenderness, no masses, no pulsatile masses. [] Skin: Warm, dry, no erythema, no rash. [] Back: No tenderness, no CVA tenderness. [] Extremities: No tenderness, no cyanosis, no clubbing, ROM intact, no edema. [] Neurologic: Alert and oriented X 3, normal motor function, normal sensory function, no focal deficits noted. [] Psychologic: Affect normal, judgement normal, mood normal. [] Current Patient Data: Vital Signs: Vital Signs Date Time Temp Pulse Resp B/P (MAP) Pulse Ox O2 Delivery O2 Flow Rate FiO2 01/31/21 14:52 98.5 100 18 140/81 (93) 99 Room Air 98.5 EKG: EKG: [] Radiology/Procedures: Radiology/Procedures: [] Impression: [facility] [address] [place] [address] IMAGING REPORT Signed PATIENT: NILDA VENEGAS ACCOUNT: [id number] : 1975 LOCATION: ER AGE: 45 SEX: F EXAM STATUS: PRE ER ORD. PHYSICIAN: NICOLA LOPEZ APRN REASON: FALL ON RIBS, PAIN AND TENDERNESS PROCEDURE: RIBS LEFT AND PA CHEST EXAM: Chest and left ribs, 3 views. HISTORY: Pain. COMPARISON: 10/27/2019 FINDINGS: A frontal view of the chest and 2 views of the left ribs are obtained. There is no infiltrate, pleural effusion or pneumothorax. The heart is normal in size. There is a tiny nodular opacity overlying the left costophrenic angle likely due to atelectasis or scarring. The imaging appearance does not favor a pulmonary nodule. There is no evidence of a rib fracture. IMPRESSION: No acute pulmonary or osseous finding. Electronically signed by: Yeni Solorzano MD (01/31/2021 3:51 PM) [facility] DICTATED and SIGNED BY: YENI SOLORZANO MD DATE: 01/31/21 [id number] 0 Course & Med Decision Making: Course & Med Decision Making Pertinent Labs and Imaging studies reviewed. (See chart for details) See HPI. Left rib tenderness without swelling or bruising. There is no crepitus or subcutaneous emphysema. Lungs are clear in upper lobes but diminished in lower lobes bilaterally. No bruising to abdomen abdomen is soft and nontender. Alert and oriented x4. Speaks in full clear sentences. Ambulatory with a steady gait. She states pain is worsening with movement. [] Radhaon Disclaimer: Kerri Disclaimer: This electronic medical record was generated, in whole or in part, using a voice recognition dictation system. Departure Departure Impression: Primary Impression: Contusion of rib on left side Qualified Codes: S20.212A - Contusion of left front wall of thorax, initial encounter Disposition: HOME / SELF CARE / HOMELESS Condition: STABLE Referrals: UNKNOWN PCP NAME (PCP) Patient Instructions: Incentive Spirometer, Rib Contusion Additional Instructions: Follow-up with your primary care physician. Use sensitive spirometer as educated. Use ice or heat. Continue taking your pain medicine for the pain. If you begin having severe respiratory distress, chest pain, or fever you return to the emergency room. NICOLA LOPEZ APRN Jan 31, 2021 15:36
--- NOTE | 2021-01-31 15:53 | RAD ---
EXAM: Chest and left ribs, 3 views. HISTORY: Pain. COMPARISON: 10/27/2019 FINDINGS: A frontal view of the chest and 2 views of the left ribs are obtained. There is no infiltra te, pleural effusion or pneumothorax. The heart is normal in size. There is a tiny nodular opacity ov erlying the left costophrenic angle likely due to atelectasis or scarring. The imaging appearance lewis s not favor a pulmonary nodule. There is no evidence of a rib fracture. IMPRESSION: No acute pulmonary or osseous finding. Electronically signed by: Yeni Solorzano MD (01/31/2021 3:51 PM) [facility]
== END 2021-01-31 16:13 | disposition home or self-care (01) ==
LOC: ER 14:05
DX: S20.212A Contusion of left front wall of thorax, initial encounter (principal); R06.02 Shortness of breath; E11.40 Type 2 diabetes mellitus with diabetic neuropathy, unspecified; I10 Essential (primary) hypertension; I25.2 Old myocardial infarction; G89.29 Other chronic pain; F17.200 Nicotine dependence, unspecified, uncomplicated; W01.198A Fall on same level from slipping, tripping and stumbling with subsequent striking against other object, initial encounter; Y93.89 Activity, other specified; Y92.22 Religious institution as the place of occurrence of the external cause; Y99.8 Other external cause status
CPT/HCPCS: 71101; 99283

== ENCOUNTER 2021-09-22 23:25 | Emergency (ER) | payer OTHER ==
[~2021-09-22] VITALS: Ht 172.7 cm; Wt 89.0 kg
[~2021-09-22 23:25] MED LIST changes: +CYCL10TA19 PO; -CYCL10TA2 PO; +LOSA-362 PO; -LOSA25TA4 PO
[2021-09-23] MEDS ORDERED: ONDANSETRON PF 4 MG/2 ML VIAL. IVP ONE ×2 (00:30→03:00)
[2021-09-23 00:42] LABS: BASO % 0 % (0-3); EOS # 0.1 x10^3/uL (0.0-0.7); EOS % 2 % (0-3); HEMATOCRIT 40.4 % (36.0-47.0); HEMOGLOBIN 13.5 g/dL (12.0-15.5); LYMPH # 3.2 x10^3/uL (1.0-4.8); LYMPH % 39 % (24-48); MEAN CORPUSCULAR HEMOGLOBIN 27 pg (25-35); MEAN CORPUSCULAR HGB CONC 33 g/dL (31-37); MEAN CORPUSCULAR VOLUME 82 fL (79-100); MONO # 0.4 x10^3/uL (0.0-1.1); MONO % 5 % (0-9); NEUT # 4.5 x10^3/uL (1.8-7.7); NEUT % 54 % (31-73); PLATELET COUNT 202 x10^3/uL (140-400); RED BLOOD COUNT 4.91 x10^6/uL (3.50-5.40); WHITE BLOOD COUNT 8.3 x10^3/uL (4.0-11.0)
[2021-09-23 00:51] LABS: CALCIUM 9.5 mg/dL (8.5-10.1); CREATININE 0.9 mg/dL (0.6-1.0)
[2021-09-23 00:52] LABS: GFR 67.7; POTASSIUM 3.9 mmol/L (3.5-5.1)
--- NOTE | 2021-09-23 00:53 | PHYS DOC ---
Past Medical History Past Medical History: Anxiety, Depression, Diabetes-Type II, Gallstones, Hypertension, [place], Other Additional Past Medical Histor: fibroid tumors,Chronic abdominal pain,NEUROPATHY,CHRONIC NECK PAIN Past Surgical History: Cholecystectomy, Hysterectomy Additional Past Surgical Histo: carpal tunnel,R elbow,D&C Smoking Status: Never Smoker Alcohol Use: None Drug Use: None General Adult EDM: Chief Complaint: CHEST PAIN HPI: HPI: Patient is a 45 year old female with history of T2DM c/b neuropathy, HTN, CAD, and anxiety who presents with low blood sugar. Around 4 am on 09/22, she felt sweaty, clammy, and ill. Her blood glucose was around 40. She drank half a coke and pineapple. Throughout the day, she had decreased oral intake and felt unwell. She tried to go asleep around 4 pm and rechecked her glucose level which was in the 40s. She reports chest heaviness that radiates to her neck. Also, she reports left lower quadrant pain. Associated symptoms include chills, lightheadedness, dizziness, nausea, vomiting, and weakness. She denies fevers, changes in urination, and sick contacts. Review of Systems: Review of Systems: Constitutional: Denies fever. Positive for chills. Positive for dizziness and lightheadedness Eyes: Denies change in visual acuity. HENT: Denies nasal congestion or sore throat. Respiratory: Denies cough or shortness of breath. Cardiovascular: Positive for chest pain. Denies edema. GI: Positive for abdominal pain, nausea, vomiting. Denies bloody stools or diarrhea. : Denies dysuria. Musculoskeletal: Positive neck pain. Positive extremity pain. Integument: Denies rash. Neurologic: Positive for headache and weakness. Endocrine: Denies polyuria or polydipsia. Lymphatic: Denies swollen glands. Psychiatric: Positive for anxiety. Heart Score: C/O Chest Pain: Yes HEART Score for Chest Pain: HEART Score for Chest Pain Response (Comments) Value History Slighlty/Non-Suspicious 0 ECG Normal 0 Age >45 - < 65 1 Risk Factors 1 or 2 Risk Factors 1 Troponin < Normal Limit 0 Total 2 Risk Factors: Risk Factors: DM, Current or recent (<one month) smoker, HTN, HLP, family history of CAD, obesity. Risk Scores: Score 0 - 3: 2.5% MACE over next 6 weeks - Discharge Home Score 4 - 6: 20.3% MACE over next 6 weeks - Admit for Clinical Observation Score 7 - 10: 72.7% MACE over next 6 weeks - Early Invasive Strategies Current Medications: Current Medications Medications (Trade) Dose Ordered Sig/Dominique Start Time Stop Time Status Last Admin Dose Admin Ondansetron HCl (Zofran) 4 mg 1X ONCE 09/23/21 00:30 09/23/21 00:31 Allergies: Allergies: Allergies Coded Allergies Type Severity Reaction Last Updated Verified shrimp Allergy Intermediate 09/22/21 Yes Physical Exam: PE: Constitutional: mild distress, tearful, alert, awake HENT: Normocephalic, atraumatic, bilateral external ears normal, oropharynx moist, no oral exudates, nose normal. Eyes: PERRLA, EOMI, conjunctiva normal, no discharge. Neck: Normal range of motion, tender to palpation and with motion Cardiovascular: RRR no murmur, gallops, or rubs Lungs & Thorax: Bilateral breath sounds clear to auscultation, no rales or wheezes Abdomen: Bowel sounds normal, soft, tender to palpation in the LLQ, no masses, no pulsatile masses. Skin: Warm, dry, no erythema, no rash. Back: No tenderness, no CVA tenderness. Extremities: Tender to palpation to all extremities, no cyanosis, no clubbing, ROM intact, no edema. [] Neurologic: Alert and oriented X 3, normal motor function, normal sensory function, no focal deficits noted. Psychologic: anxious Current Patient Data: Labs: Laboratory Tests Test 09/22/21 23:43 Glucose (Fingerstick) 179 mg/dL (70-99) H Vital Signs: Vital Signs Date Time Temp Pulse Resp B/P (MAP) Pulse Ox O2 Delivery O2 Flow Rate FiO2 09/22/21 23:30 98.0 99 16 164/93 (116) 100 Room Air 98.0 EKG: EKG: [] Performed at 2339 Significant artifact Rate of 102 From the leads visualize did not see an acute MD Radiology/Procedures: Radiology/Procedures: [] Course & Med Decision Making: Course & Med Decision Making Pertinent Labs and Imaging studies reviewed. (See chart for details) []Patient evaluated for chief complaint. CT imaging colitis. Labs within normal limits. BLood sugars in [id number]'s but after prolong ER stay dropped to the 50's. Patient treatment included zofran and IV fluids. Unsure as to the cause of patients blood sugar drop from 160's to 50's Patient was observed-- tolerated PO. All results reviewed. DC home with Rx zofran. Kerri Disclaimer: Kerri Disclaimer: This electronic medical record was generated, in whole or in part, using a voice recognition dictation system. Departure Departure Impression: Primary Impression: Abdominal pain Additional Impressions: Colitis Diabetes Vomiting Disposition: 01 HOME / SELF CARE / HOMELESS Condition: STABLE Referrals: UNKNOWN PCP NAME (PCP) Patient Instructions: Abdominal Pain, Colitis, Diabetes, FAQs Scripts Ondansetron (ONDANSETRON ODT) 4 Mg Tab.rapdis 1 TAB PO PRN Q6-8HRS, #16 TAB Prov: ANTOINETTE KENNEDY DO 09/23/21 ANTOINETTE KENNEDY DO Sep 23, 2021 00:53
[2021-09-23 01:00] LABS: ALBUMIN 3.9 g/dL (3.4-5.0); TOTAL BILIRUBIN 0.6 mg/dL (0.2-1.0)
[2021-09-23] MEDS ORDERED: CONTRAST GIVEN. MC PRN (01:00)
[2021-09-23] MEDS ORDERED: IOHEXOL 300 MG/ML 100ML VIAL. IV ONE (01:00)
--- NOTE | 2021-09-23 01:05 | RAD ---
XR CHEST 1V Clinical History: Reason: chest pain / Spl. Instructions: / History: Technique: AP view of the chest was obtained at 09/23/2021 12:27 AM. Comparison: October 27, 2019. Findings: The cardiomediastinal silhouette is normal. The pulmonary vasculature is normal. The lungs and pleura l margins are clear. Impression: No evidence of an acute cardiopulmonary process. Electronically signed by: Antonio Miller III, MD (09/23/2021 1:02 AM) [facility]
[2021-09-23] MEDS ORDERED: IV NORMAL SALINE 1000ML BAG 1,000 ML IV ONE (01:30)
--- NOTE | 2021-09-23 02:05 | RAD ---
CT ABDOMEN+PELVIS W History: Left lower quadrant abdominal pain. Comparison: CT abdomen and pelvis 09/18/2018, 06/23/2016 Technique: CT abdomen pelvis with intravenous contrast. Findings: Redemonstrated right pericardial cystic structure measuring approximately 3.3 x 1.9 cm, similar to co mparisons, consistent with a benign process. The lung bases are clear. The liver is unremarkable. Status post cholecystectomy. Normal pancreas. The spleen is at the upper l imits of normal for size, 12.9 cm. The adrenal glands and kidneys are within normal limits. No nephro lithiasis or hydronephrosis. The stomach and small bowel are unremarkable. No evidence of appendicitis. There is mild wall thicken ing of the distal sigmoid colon with adjacent inflammatory changes in the pelvis. No significant dive rticular disease. The bladder is unremarkable. Status post hysterectomy. No intra-abdominal free air. Trace fluid in the pelvis. No adenopathy. Vasculature is within normal l imits. Soft tissues and osseous structures are unremarkable. Impression: 1. Mild wall thickening and adjacent inflammatory changes in the sigmoid colon consistent with colit is. Consider inflammatory and infectious etiologies. No significant colonic diverticulosis. ------ Exposure: One or more of the following individualized dose reduction techniques were utilized for thi s examination: 1. Automated exposure control 2. Adjustment of the mA and/or kV according to patient size 3. Use of iterative reconstruction technique. Electronically signed by: Lorenzo Zheng MD (09/23/2021 2:03 AM) [facility]
[2021-09-23] MEDS ORDERED: ONDA4TAB12 PO (04:27)
[2021-09-23 04:40] VITALS: BP 139/82
--- NOTE | 2021-09-24 10:51 | EKG ---
[facility] [address] [place] [address] Test Date: 2021-09-22 Test Time: 23:39:50 Pat Name: NILDA VENEGAS Department: Room: Gender: F Chart Changer: : 1975 Requested By: ANTOINETTE KENNEDY Order Number: [id number] Reading MD: Cheng Sanchez MD Measurements Intervals [place] Rate: 102 P: [place]: QRS: 39 QRSD: 94 T: 20 QT: 358 QTc: 471 Interpretive Statements Sinus rhythm Motion artifact Consider repeat EKG Electronically Signed On 09-25-2021 17:55:19 CDT by Cheng Sanchez MD
== END 2021-09-23 05:15 | disposition home or self-care (01) ==
LOC: ER 23:25
DX: E11.649 Type 2 diabetes mellitus with hypoglycemia without coma (principal); K52.9 Noninfective gastroenteritis and colitis, unspecified; R42 Dizziness and giddiness; E11.40 Type 2 diabetes mellitus with diabetic neuropathy, unspecified; I10 Essential (primary) hypertension; I25.2 Old myocardial infarction; G89.29 Other chronic pain; I25.10 Atherosclerotic heart disease of native coronary artery without angina pectoris; F41.9 Anxiety disorder, unspecified; Z90.49 Acquired absence of other specified parts of digestive tract; Z90.710 Acquired absence of both cervix and uterus; Z91.013 Allergy to seafood
CPT/HCPCS: 36415; 71045; 74177; 80053; 82962; 83690; 84484; 85025; 93005; 96361; 96374; 99285; J2405; J7030; Q9967

== ENCOUNTER 2021-10-20 19:26 | Emergency (ER) | payer OTHER ==
[~2021-10-20] VITALS: Ht 175.3 cm; Wt 86.3 kg
[~2021-10-20 19:26] MED LIST changes: +ONDA4TAB12 PO
--- NOTE | 2021-10-20 20:13 | PHYS DOC ---
Past Medical History Past Medical History: Anxiety, Depression, Diabetes-Type II, Gallstones, Hypertension, [place], Other Additional Past Medical Histor: fibroid tumors,Chronic abdominal pain,NEUROPATHY,CHRONIC NECK PAIN Past Surgical History: Hysterectomy Additional Past Surgical Histo: carpal tunnel,R elbow,D&C Smoking Status: Never Smoker Alcohol Use: None Drug Use: None Adult General Chief Complaint Chief Complaint: FLU SYMPTOM HPI HPI The patient is a 45-year-old female with a history of hypertension, coronary artery disease and insulin-dependent diabetes. She presents for evaluation of about 48 hours of nasal congestion, rhinorrhea, mild dry cough, mild sore throat, fatigue, malaise and body aches. She reports intermittent fevers as well but is afebrile here without antipyretics on board. She denies associated vomiting, headache, focal or lateralizing weakness, numbness or tingling, neck s tiffness/pain/meningismus, vision changes, shortness of breath or chest pain of any kind, abdominal pain of any kind, flank pain, midline back pain, dysuria, hematuria, polyuria or oliguria, changes in bowel habits, pain or swelling to arms or legs. Patient is alert, pleasantly and appropriately interactive and in no acute distress with appropriate vital signs upon initial evaluation here in the emergency department. She reports her blood sugars have been a little higher than normal; currently her implanted glucometer reads 317. Review of Systems Review of Systems A 12 point review of systems was completed and was negative except where noted in HPI above. Current Medications Current Medications Current Medications Medications (Trade) Dose Ordered Sig/Dominique Start Time Stop Time Status Last Admin Dose Admin Acetaminophen (Tylenol) 1,000 mg 1X ONCE 10/20/21 20:30 10/20/21 20:31 DC 10/20/21 20:10 1,000 MG Benzonatate (Tessalon Perle) 100 mg 1X ONCE 10/20/21 20:30 10/20/21 20:31 DC 10/20/21 20:09 100 MG Cetirizine HCl (ZyrTEC) 10 mg 1X ONCE 10/20/21 20:30 10/20/21 20:31 DC 10/20/21 20:09 10 MG Allergies Allergies Allergies Coded Allergies Type Severity Reaction Last Updated Verified shrimp Allergy Intermediate 10/20/21 Yes Physical Exam Physical Exam 45-year-old female appearing nontoxic and in no acute distress. Head is normocephalic and atraumatic. Neck is supple and nontender. No neck pain/stiffness/meningismus seen and patient ranges neck fully in all dimensions without discomfort or distress. Kernig's and Brudzinski's are negative. Oropharynx is moist. Mild posterior oropharyngeal erythema without tonsillar exudates or swelling or uvular deviation. Patient is tolerating secretions normally and speaking comfortably in a normal tone of voice. Mild nasal mucus bilaterally. Tympanic membranes clear bilaterally. No EAC or mastoid process abnormalities bilaterally. Lungs are clear to auscultation at all stations. Normal work of breathing. No tachypnea. No accessory muscle use. There is a normal S1 and S2 without rubs or gallops and capillary refill is appropriate, less than 2 seconds globally. There is a regular rhythm. Abdomen is soft, nontender and nondistended without pulsatile mass or organomegaly noted. Skin is warm and dry without cyanosis, clubbing or edema. Psychiatrically, the pat ient demonstrates appropriate mood and affect and is alert. Evaluation of the extremities reveals BUEs and BLEs neurovascular intact distally with strength out of 5, sensation intact light touch in all nerve distributions, radial, DP and PT pulses 2+ and equal bilaterally, capillary refill less than 2 seconds, hands and feet warm and well-perfused. No dependent peripheral edema distally. No calf tenderness or swelling bilaterally. Christophe's test is negative bilaterally. Current Patient Data Vital Signs Vital Signs Date Time Temp Pulse Resp B/P (MAP) Pulse Ox O2 Delivery O2 Flow Rate FiO2 10/20/21 19:59 99.4 104 20 153/82 (105) 100 Room Air 99.4 Lab Values Laboratory Tests Test 10/20/21 20:12 Influenza Type A Antigen Negative (NEGATIVE) Influenza Type B Antigen Negative (NEGATIVE) SARS-CoV-2 Antigen (Rapid) Negative (NEGATIVE) EKG EKG [] Radiology/Procedures Radiology/Procedures [] Course & Med Decision Making Course & Med Decision Making Well-appearing 45-year-old insulin-dependent diabetic here for upper respiratory symptoms for 2 days. Vital signs and clinical examination are reassuring. Blood glucose 300, no clinical evidence of DKA or hyperosmolar syndrome and patient has plenty of insulin to manage her sugars at home. No clear indication for extensive work-up at this time. We will give medications for symptomatic m anagement, recheck for influenza and COVID given community prevalence and plan for probable discharge home to manage symptoms and follow-up closely with primary care. Patient understands and agrees with this plan of care. 2049: Patient feeling better after medication for symptoms here in the emergency department. Flu and COVID swabs are negative. Will discharge home with benzon atate, Zofran and Tylenol. Patient understands that if she feels worse instead of better or develops other new symptoms of concern that she should return to the emergency department immediately for reevaluation. All questions are answered. Dragon Disclaimer Dragon Disclaimer This electronic medical record was generated, in whole or in part, using a voice recognition dictation system. Departure Departure Impression: Primary Impression: Upper respiratory infection, viral Disposition: HOME / SELF CARE / HOMELESS Condition: IMPROVED Patient Instructions: Upper Respiratory Infection, Adult Additional Instructions: Follow-up very closely with your primary care doctor in the office in the next 1 to 2 days for a reevaluation of your symptoms I did discussion of next best steps in care. Drink plenty of fluids to stay hydrated and get plenty of rest. Keep a close eye on your blood sugars and use your insulins as prescribed. Take a benzonatate pill every 8 hours as needed for cough. Take a 500 mg extra strength Tylenol pill every 6 hours as needed for discomfort and/or fever. Take a Zofran tablet underneath your tongue every 8 hours as needed for nausea. Return to the emergency department right away for worsening symptoms of any kind or with any other new symptoms of concern. Scripts Ondansetron (ONDANSETRON ODT) 4 Mg Tab.rapdis 1 TAB PO PRN Q6-8HRS, #10 TAB Prov: BALTAZAR AGUILAR MD 10/20/21 Acetaminophen (ACETAMINOPHEN) 500 Mg Tablet 1 TAB PO PRN Q6HRS PRN for pain or fever for 15 Days, #60 TAB 0 Refills Prov: BALTAZAR AGUILAR MD 10/20/21 Benzonatate (BENZONATATE) 100 Mg Capsule 100 MG PO TID PRN for COUGH, #21 CAP Prov: BALTAZAR AGUILAR MD 10/20/21 BALTAZAR AGUILAR MD Oct 20, 2021 20:13
[2021-10-20] MEDS ORDERED: BENZONATATE 100 MG CAPSULE. PO ONE (20:30)
[2021-10-20] MEDS ORDERED: CETIRIZINE HCL 10 MG TABLET. PO ONE (20:30)
[2021-10-20] MEDS ORDERED: ACETAMINOPHEN 500 MG TABLET PO ONE (20:30)
[2021-10-20 20:33] LABS: INFLUENZA A PATIENT NEGATIVE (NEGATIVE); INFLUENZA B PATIENT NEGATIVE (NEGATIVE)
[2021-10-20 20:42] VITALS: BP 129/79
[2021-10-20] MEDS ORDERED: ONDA4TAB12 PO (20:58)
[2021-10-20] MEDS ORDERED: ACET500T68 PO (20:58)
[2021-10-20] MEDS ORDERED: BENZ-8 PO (20:58)
== END 2021-10-20 21:17 | disposition home or self-care (01) ==
LOC: ER 19:26
DX: J06.9 Acute upper respiratory infection, unspecified (principal); B97.89 Other viral agents as the cause of diseases classified elsewhere; Z20.822 Contact with and (suspected) exposure to COVID-19; E11.40 Type 2 diabetes mellitus with diabetic neuropathy, unspecified; I10 Essential (primary) hypertension; I25.2 Old myocardial infarction; G89.29 Other chronic pain; I25.10 Atherosclerotic heart disease of native coronary artery without angina pectoris; Z91.013 Allergy to seafood
CPT/HCPCS: 87426; 87428; 99284